=== PATIENT | female | born 1940 | race Caucasian/White ===

== ENCOUNTER 2017-02-07 12:18 | Inpatient (IN) ==
[2017-02-07] MEDS ORDERED: 0.9 % Sodium Chloride 1,000 ML IVC ONE (12:47)
[2017-02-07] MEDS ORDERED: Ipratropium/Albuterol Neb 3 ML IH ONE ×2 (12:47→14:37)
[2017-02-07 13:33] LABS: Basophils % 0.1 %; Eosinophils # 0.1 K/mcL (0.0-0.6); Hematocrit 33.9 % (35.3-44.9); Immature Granulocytes % 0.4 % (0-4); Lymphocytes # 0.5 K/mcL (0.6-4.6); Lymphocytes % 6.4 %; Mean Corpuscular HGB Conc 32.4 g/dL (31.6-35.5); Mean Corpuscular Hemoglobin 29.3 pg (28.0-33.3); Mean Corpuscular Volume 90.4 fL (83.0-100.0); Mean Platelet Volume 8.4 fL (9.4-12.4); Monocytes # 1.4 K/mcL (0.0-1.3); Monocytes % 20.1 %; Neutrophils # 5.1 K/mcL (1.6-8.9); Platelet Count 217 K/mcL (140-400); Red Blood Count 3.75 M/mcL (3.82-4.97); Red Cell Distribution Width 13.5 % (11.5-14.5)
--- NOTE | 2017-02-07 13:34 | Emergency Department Note ---
Disposition Clinical Impression: Community acquired pneumonia, Hypoxemia, Weakness Disposition: Admitted As Inpatient Condition: Fair Time of Disposition: 17:33 SOB HPI - General Chief Complaint: ED Shortness of Breath/Dyspnea Stated Complaint: ANNA Time Seen by Provider: 02/07/17 12:36 Source: patient Limitations: no limitations Nursing Notes Reviewed: Yes Vital Signs Reviewed: Yes - History of Present Illness Patient is a 76-year-old female who presents to [facility] ED with a chief complaint of difficulty breathing and weakness. States her symptoms have been ongoing over the last week and worse and last night. Her cough has been productive of white and sometimes yellow sputum. Denies any fevers but has had some chills at home. Past medical history significant for COPD for which she is on inhalers and nebulizer once a day, HTN, HLD, polymyalgia rheumatica on 10 mg daily of prednisone. Denies any chest pain or abdominal pain. No problems with urination or bowel movements. Daughter states when they went to check on her earlier today, her oxygen saturation on room air was 80%. He placed her on her when necessary O2 of 2 L and she went up to 90%. Pt Subjective Complaint: shortness of breath, cough Onset (ago): day(s) Context: recent illness Severity: moderate Consistency/Duration: gradually worsening Improves with: oxygen, rest Worsens with: lying flat, exertion Known history of: COPD Associated symptoms: Reports: cough, sputum production. Denies: chest pain, fever, nausea/vomiting, abdominal pain Treatment prior to arrival: oxygen Cough present: Yes Cough Description: Involuntary Cough Frequency: Intermittent Sputum production: Yes Sputum Amount: Moderate Sputum Color: White, Yellow - Related Data Home oxygen amount: 2 liters Home Medications Medication Instructions Recorded Confirmed Albuterol Sulfate [Proair Hfa] 2 puff IH Q4H PRN 07/05/16 02/07/17 Ascorbic Acid [Vitamin C] 500 mg PO DAILY 07/05/16 02/07/17 Aspirin Enteric Coated [Aspirin EC] 81 mg PO DAILY 07/05/16 02/07/17 Biotin 1 mg PO DAILY 07/05/16 02/07/17 Cetirizine HCl [Zyrtec] 10 mg PO DAILY 07/05/16 02/07/17 Citalopram Hydrobromide 10 mg PO DAILY 07/05/16 02/07/17 [Citalopram HBr] Cyanocobalamin (Vitamin B-12) 2,500 mcg PO DAILY 07/05/16 02/07/17 [Vitamin B12] Diclofenac Sodium [Voltaren] 1 appl TP QID 07/05/16 02/07/17 GuaiFENesin/Dextromethorphan 1 tab PO Q4H PRN 07/05/16 02/07/17 [Mucinex Dm] Ibuprofen [Motrin] 800 mg PO Q8HR PRN 07/05/16 02/07/17 Losartan Potassium [Cozaar] 50 mg PO DAILY 07/05/16 02/07/17 Multivitamin [Multi-Day Vitamins] 1 tab PO DAILY 07/05/16 02/07/17 Nortriptyline [Pamelor] 25 mg PO DAILY 07/05/16 02/07/17 Omeprazole [PriLOSEC] 40 mg PO DAILY 07/05/16 02/07/17 PredniSONE 5 mg PO DAILY 08/23/16 02/07/17 Ipratropium/Albuterol Neb [Duoneb] 3 ml IH QID PRN 02/07/17 02/07/17 Lactobacillus [Culturelle] 2 cap PO DAILY 02/07/17 02/07/17 Metoprolol Tartrate [Lopressor] 25 mg PO BID 02/07/17 02/07/17 Previous Rx's Medication Instructions Recorded Budesonide/Formoterol 160/4.5 2 puff IH BIDR #1 inhaler 07/07/16 [Symbicort 160/4.5] Benzonatate [Tessalon] 200 mg PO TID PRN #0 capsule 08/30/16 LORazepam [Ativan] 0.5 mg PO HS #30 tablet 08/30/16 Allergies Allergy/AdvReac Type Severity Reaction Status Date / Time Penicillins Allergy Severe Swelling Verified 07/05/16 17:36 of Lip/Tongue/Throat Tetanus Vaccines and Toxoid Allergy Confusion Verified 07/05/16 17:36 [Tetanus Vaccines & Toxoid] acetaminophen AdvReac Confusion Verified 07/05/16 17:36 [From Darvocet-N] propoxyphene [From Darvon] AdvReac Confusion Verified 07/05/16 17:36 All systems ED: reviewed and negative except as stated. Past Medical History - Past Medical History Attestation: Yes The following information was validated with the patient. Source: patient Medical history: Reports: asthma, COPD, hyperlipidemia, hypertension, other Surgical history: Reports: appendectomy, hip replacement, hysterectomy Psychiatric history: Reports: anxiety - Social History Smoking Status: Former smoker Smokeless Tobacco Status: No Alcohol use: Reports: none Drug use: Reports: none Physical Exam - General Limitations: no limitations General appearance: alert, in no apparent distress - Head Head exam: atraumatic, normocephalic, normal inspection - Eye Eye exam: Present: normal appearance, PERRL, EOMI - ENT ENT exam: normal exam, normal oropharynx, mucous membranes moist - Neck Neck exam: Present: normal inspection, full ROM, trachea midline - Chest Chest inspection: Present: normal inspection, symmetric chest wall rise - Respiratory Respiratory exam: Present: other (Crackles at the bases bilaterally) - Cardiovascular Cardiovascular exam: Present: normal rhythm, tachycardia - Abdominal Exam Abdominal exam: Present: soft, Non-Tender. Absent: tenderness, distention, guarding, rebound, rigidity - Extremities Exam Extremities exam: Present: normal inspection, full ROM. Absent: tenderness, pedal edema - Back Exam Back exam: Present: normal inspection, full ROM. Absent: tenderness - Neurological Exam Neurological exam: Present: alert, oriented X3 - Psychiatric Psychiatric exam: Present: normal affect, normal mood - Skin Skin exam: Present: warm, dry, intact, normal color Course Course Narrative: Patient seen and examined. Difficulty breathing and generalized weakness. Cardiopulmonary workup initiated. We will do a DuoNeb treatment - Reevaluation(s) Reevaluation #1: CT of the chest shows left lower lobe pneumonia. We will go ahead and order a dose of azithromycin and ceftriaxone. Due to patient's hypoxemia, generalized weakness, left lower lobe pneumonia, we will go ahead and admit. I spoke with hospitalist Sonia Singh who has accepted patient for admission. Time: 17:32 Vital Signs Temperature 99.2 F 02/07/17 12:20 Pulse Rate 104 02/07/17 12:20 Respiratory Rate 18 02/07/17 12:20 Blood Pressure 153/84 02/07/17 12:20 O2 Sat by Pulse Oximetry 92 L 02/07/17 12:20 Temperature 99.2 F 02/07/17 12:20 Pulse Rate 116 02/07/17 16:38 Respiratory Rate 20 02/07/17 17:34 Blood Pressure 166/93 02/07/17 17:34 O2 Sat by Pulse Oximetry 97 02/07/17 16:38 Oxygen Delivery Oxygen Delivery Nasal Cannula Shortness of Breath/Dyspnea - Medical Records Medical records reviewed: Yes I reviewed the patient's medical records. - Lab Data Lab results reviewed: Yes I reviewed the patient's lab results. Result diagrams: 02/07/17 13:20 02/07/17 13:20 Lab Results 02/07/17 02/07/17 02/07/17 Range/Units 13:20 13:20 13:20 WBC 7.1 (4.3-11.1) K/mcL RBC 3.75 L (3.82-4.97) M/mcL Hgb 11.0 L (11.5-15.4) g/dL Hct 33.9 L (35.3-44.9) % MCV 90.4 (83.0-100.0) fL MCH 29.3 (28.0-33.3) pg MCHC 32.4 (31.6-35.5) g/dL RDW 13.5 (11.5-14.5) % Plt Count 217 (140-400) K/mcL MPV 8.4 L (9.4-12.4) fL Immature Gran % 0.4 (0-4) % Seg Neutrophils % 72.0 % Lymphocytes % 6.4 % Monocytes % 20.1 % Eosinophils % 1.0 % Basophils % 0.1 % Neutrophils # 5.1 (1.6-8.9) K/mcL Lymphocytes # 0.5 L (0.6-4.6) K/mcL Monocytes # 1.4 H (0.0-1.3) K/mcL Eosinophils # 0.1 (0.0-0.6) K/mcL Basophils # 0.0 (0.0-0.2) K/mcL Platelet Estimate Normal (Normal) Sodium 138 (136-145) mEq/L Potassium 3.9 (3.5-4.5) mEq/L Chloride 99 (98-109) mEq/L Carbon Dioxide 32 H (19-29) mEq/L BUN 13 (7-20) mg/dL Creatinine 0.76 (0.57-1.11) mg/dL Est GFR ( Amer) > 60 (> 60) Est GFR (Non-Af Amer) > 60 (> 60) BUN/Creatinine Ratio 17 (6-26) Glucose 134 H (70-99) mg/dL Calculated Osmolality 288 (280-300) Lactic Acid 0.8 (0.5-2.2) mmol/L Calcium 9.2 (8.6-10.8) mg/dL Troponin I (0-0.03) ng/mL B-Natriuretic Peptide (0-100) pg/mL 02/07/17 02/07/17 Range/Units 13:20 13:20 WBC (4.3-11.1) K/mcL RBC (3.82-4.97) M/mcL Hgb (11.5-15.4) g/dL Hct (35.3-44.9) % MCV (83.0-100.0) fL MCH (28.0-33.3) pg MCHC (31.6-35.5) g/dL RDW (11.5-14.5) % Plt Count (140-400) K/mcL MPV (9.4-12.4) fL Immature Gran % (0-4) % Seg Neutrophils % % Lymphocytes % % Monocytes % % Eosinophils % % Basophils % % Neutrophils # (1.6-8.9) K/mcL Lymphocytes # (0.6-4.6) K/mcL Monocytes # (0.0-1.3) K/mcL Eosinophils # (0.0-0.6) K/mcL Basophils # (0.0-0.2) K/mcL Platelet Estimate (Normal) Sodium (136-145) mEq/L Potassium (3.5-4.5) mEq/L Chloride (98-109) mEq/L Carbon Dioxide (19-29) mEq/L BUN (7-20) mg/dL Creatinine (0.57-1.11) mg/dL Est GFR ( Amer) (> 60) Est GFR (Non-Af Amer) (> 60) BUN/Creatinine Ratio (6-26) Glucose (70-99) mg/dL Calculated Osmolality (280-300) Lactic Acid (0.5-2.2) mmol/L Calcium (8.6-10.8) mg/dL Troponin I 0.01 (0-0.03) ng/mL B-Natriuretic Peptide 182 H (0-100) pg/mL - Radiology Data Radiology results reviewed: Yes I reviewed the patient's radiology results. - EKG Data EKG attestation: Yes I reviewed and interpreted this EKG. EKG results narrative: EKG done at 1237 shows sinus tachycardia with a rate of [address] elevation or depression. Frequent PVCs noted. Attestation Statement - Attestation Attestation: Patient was seen with resident physician. I reviewed the history, physical, assessment and plan, and agree with the findings. I also personally evaluated this patient and had [id number] time with this patient. 68-year-old female presents to the emergency department with difficulty breathing. Been getting progressively worse for the last several days. She says she cannot just catch her breath. Patient's history of COPD and is on 2 L of home O2 but only as needed. She is not required. Her daughter who is a nurse noticed that her pulse ox on room air was about 80 which ultimately prompted her visit to the emergency department. On 2-1/2 L it was 95% but on 2 L of home O2 was only in the low 90s. Patient states she has not had any chest pain she thinks she has had some fevers but she just cannot seem to catch her breath. Denies nausea or vomiting. On exam ENT is unremarkable heart is regular rhythm and rate. Lungs no wheezing or obvious rhonchi. Abdomen soft and nontender extremities are unremarkable without swelling. Neurologically patient is intact. We will keep patient on home O2 provided breathing treatments and workup for pneumonia and other causes of hypoxia. Because of how much she desats and her not being on continuous home O2 is likely that we will admit the patient for hypoxia. We will also start her on IV antibiotics for pneumonia. CT scan of the chest was also obtained which did reveal pneumonia. Hospitalist service was notified for need for admission. Otherwise patient's been stable hemodynamically. Agree with resident physician assessment and plan.
[2017-02-07 13:50] LABS: BUN/Creatinine Ratio 17 (6-26); Blood Urea Nitrogen 13 mg/dL (7-20); Calcium 9.2 mg/dL (8.6-10.8); Carbon Dioxide 32 mEq/L (19-29); Chloride 99 mEq/L (98-109); Glucose 134 mg/dL (70-99); Osmolality,Calculated 288 (280-300); Potassium 3.9 mEq/L (3.5-4.5); Sodium 138 mEq/L (136-145); eGFR For African Americans > 60 (> 60); eGFR For Non-African Americans > 60 (> 60)
[2017-02-07 13:56] LABS: Platelet Estimate Normal (Normal)
[2017-02-07] MEDS ORDERED: Azithromycin 500 MG in D5% in Water 250 ML IVPB ONE (16:27)
[2017-02-07] MEDS ORDERED: *HR* LORazepam 0.5 MG TABLET PO ONE (16:37)
[2017-02-07] MEDS ORDERED: Ipratropium/Albuterol Neb 3 ML IH PRN (20:45)
[2017-02-07] MEDS ORDERED: Ibuprofen 400 MG TABLET PO PRN (20:49)
[2017-02-07] MEDS ORDERED: Ondansetron 4 MG/2 ML VIAL IVP PRN (20:49)
[2017-02-07] MEDS ORDERED: Naloxone 0.4 MG/ML INJ IVP PRN (20:49)
[2017-02-07] MEDS ORDERED: Albuterol 2.5 MG/3 ML NEBULIZER IH PRN (20:53)
[2017-02-07] MEDS: Budesonide/Formoterol 160/4.5 MDI IH SCH (21:56)
[2017-02-07] MEDS: *HR* LORazepam 0.5 MG TABLET PO SCH (22:35)
[2017-02-07] MEDS: Acetaminophen 325 MG TABLET PO PRN (22:35)
--- NOTE | 2017-02-07 23:13 | Internal Med History&Physical ---
Date of Encounter: 02/07/17 Time of Encounter: 20:45 Internal Medicine - H&P: HPI Chief complaint: Progressive shortness of breath, worsened overnight Admitted From: Emergency Dept Plans for Post Hospital Care: Home History of present illness: Ms. Squires is a 76 year old female with medical history significant for HTN, HLD , COPD/asthma, polymyalgia rheumatica (on prednisone 10 mg QD), presents with progressive SOB that worsened overnight, She reports a dry cough, SOB of breath at baseline and dyspnea on exertion, no chest pain, no abdominal pain, no hemoptysis, and weakness. No fever, or chills, no rhinorrhea, no sorethroat , no rash, urinary or neurological symptoms . No sick contcts, no recent travel. Her daughter reports that her pulse ox- 80% on 2L/oxygen by nasal, cannula. She is FULL CODE as per discussion. PMH: HTN, HLD, asthma/COPD, PMR on chronic predniosne therapy PSurgical history: she reports she does not recall. She had been medicated with an anxiolytic, making her sleepy. Psychiatry hx: unable to provide Family History: Father-heart disease, mother: michelle's Social history: non-smoker, no alcohol use, illicit drug use. Vital Signs Temperature 99.2 F 02/07/17 12:20 Pulse Rate 104 02/07/17 12:20 Respiratory Rate 18 02/07/17 12:20 Blood Pressure 153/84 02/07/17 12:20 O2 Sat by Pulse Oximetry 92 L 02/07/17 12:20 Temperature 99.2 F 02/07/17 12:20 Pulse Rate 116 02/07/17 16:38 Respiratory Rate 20 02/07/17 17:34 Blood Pressure 166/93 02/07/17 17:34 O2 Sat by Pulse Oximetry 97 02/07/17 16:38 In mild repiratort distress, lethargic, partly from recent adminsitration of anxiolytic Not pale, anicteric afebrile, acyanotic, Chest: Diminsihed with prolonged expiratory phase. Heart: Mild tachycardia, RR, HS1/2 no m/r/g. Abdomen: soft, non-tender, no masses. BS+. : No flank tenderness, no CVA TENDER, NO SUPRAPUBIC TENDERNESS. 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, no gross focal neurological deficits Skin: no active skin lesion Extremities: no pedal edema, no calf tenderness, normal pedal pulses Lab Results 02/07/17 02/07/17 02/07/17 Range/Units 13:20 13:20 13:20 WBC 7.1 (4.3-11.1) K/mcL RBC 3.75 L (3.82-4.97) M/mcL Hgb 11.0 L (11.5-15.4) g/dL Hct 33.9 L (35.3-44.9) % MCV 90.4 (83.0-100.0) fL MCH 29.3 (28.0-33.3) pg MCHC 32.4 (31.6-35.5) g/dL RDW 13.5 (11.5-14.5) % Plt Count 217 (140-400) K/mcL MPV 8.4 L (9.4-12.4) fL Immature Gran % 0.4 (0-4) % Seg Neutrophils % 72.0 % Lymphocytes % 6.4 % Monocytes % 20.1 % Eosinophils % 1.0 % Basophils % 0.1 % Neutrophils # 5.1 (1.6-8.9) K/mcL Lymphocytes # 0.5 L (0.6-4.6) K/mcL Monocytes # 1.4 H (0.0-1.3) K/mcL Eosinophils # 0.1 (0.0-0.6) K/mcL Basophils # 0.0 (0.0-0.2) K/mcL Platelet Estimate Normal (Normal) Sodium 138 (136-145) mEq/L Potassium 3.9 (3.5-4.5) mEq/L Chloride 99 (98-109) mEq/L Carbon Dioxide 32 H (19-29) mEq/L BUN 13 (7-20) mg/dL Creatinine 0.76 (0.57-1.11) mg/dL Est GFR ( Amer) > 60 (> 60) Est GFR (Non-Af Amer) > 60 (> 60) BUN/Creatinine Ratio 17 (6-26) Glucose 134 H (70-99) mg/dL Calculated Osmolality 288 (280-300) Lactic Acid 0.8 (0.5-2.2) mmol/L Calcium 9.2 (8.6-10.8) mg/dL Troponin I (0-0.03) ng/mL B-Natriuretic Peptide (0-100) pg/mL 02/07/17 02/07/17 Range/Units 13:20 13:20 WBC (4.3-11.1) K/mcL RBC (3.82-4.97) M/mcL Hgb (11.5-15.4) g/dL Hct (35.3-44.9) % MCV (83.0-100.0) fL MCH (28.0-33.3) pg MCHC (31.6-35.5) g/dL RDW (11.5-14.5) % Plt Count (140-400) K/mcL MPV (9.4-12.4) fL Immature Gran % (0-4) % Seg Neutrophils % % Lymphocytes % % Monocytes % % Eosinophils % % Basophils % % Neutrophils # (1.6-8.9) K/mcL Lymphocytes # (0.6-4.6) K/mcL Monocytes # (0.0-1.3) K/mcL Eosinophils # (0.0-0.6) K/mcL Basophils # (0.0-0.2) K/mcL Platelet Estimate (Normal) Sodium (136-145) mEq/L Potassium (3.5-4.5) mEq/L Chloride (98-109) mEq/L Carbon Dioxide (19-29) mEq/L BUN (7-20) mg/dL Creatinine (0.57-1.11) mg/dL Est GFR ( Amer) (> 60) Est GFR (Non-Af Amer) (> 60) BUN/Creatinine Ratio (6-26) Glucose (70-99) mg/dL Calculated Osmolality (280-300) Lactic Acid (0.5-2.2) mmol/L Calcium (8.6-10.8) mg/dL Troponin I 0.01 (0-0.03) ng/mL B-Natriuretic Peptide 182 H (0-100) pg/mL CXR: Bibasilar atelectasis, stable cardiac enlargement. CTA: no pulmonary embolus, bilateral atelectasis, no pneumonic focus. EKG: sinus tachycardia @[address] elevation or depression. Frequent PVCs noted. IMP COPD exacerbation Acute on chronic hypoxic respiratory failure. Sinus tachycardia related to COPD exacerbation Frequent PVCs on EKG, related to hypoxia/COPD exacerbation. Chronic morbidities HTN HLD COPD/ASTHMA Plolymyalgia rheumatic Axiety/depression PLAN Admit obtain ABG Oxygen supplementation pULSE OXIMETRY./ cardiac cath rn in view of frequent PVCs IV solumedrol and bronchodilator therapy Levaquin 500mg po QD Check serum magnesium stat, serum potasium =3.9 gi/dvt prophylaxis Continue other medications for chronic morbidities. I discussed my assessment with the patient, she verbalized understanding and is agreeable to admission. She is is determined to require hospitalization given the hypoxic respiratory failure. Past Med Surg Social Fam HX - Past Medical History Medical history: asthma, COPD, hyperlipidemia, hypertension, other Psychiatric history: anxiety - Past Surgical History Surgical History: appendectomy, hip replacement, hysterectomy - Social History Smoking Status: Former smoker Smokeless Tobacco Status: No Alcohol use: none Drug use: none - Family History Father History Unknown: Yes Family Member Ethnicity: Non- Living Status: Hx Family Cardiac Disorders: Yes Hx Family Respiratory Disorders: No Hx Family Cancer: No Hx Family GI Disorders: No Hx Family Endocrine Disorder: No Hx Family Neuromuscular Disorders: No Hx Family Neurologic Disorders: No Hx Family HEENT Disorders: No Hx Family Autoimmune Disorders: No Internal Medicine - H&P: Meds Albuterol Sulfate [Proair Hfa] 2 puff IH Q4H PRN 07/05/16 [History] Ascorbic Acid [Vitamin C] 500 mg PO DAILY 07/05/16 [History] Aspirin Enteric Coated [Aspirin EC] 81 mg PO DAILY 07/05/16 [History] Biotin 1 mg PO DAILY 07/05/16 [History] Cetirizine HCl [Zyrtec] 10 mg PO DAILY 07/05/16 [History] Citalopram Hydrobromide [Citalopram HBr] 10 mg PO DAILY 07/05/16 [History] Cyanocobalamin (Vitamin B-12) [Vitamin B12] 2,500 mcg PO DAILY 07/05/16 [History ] Diclofenac Sodium [Voltaren] 1 appl TP QID 07/05/16 [History] GuaiFENesin/Dextromethorphan [Mucinex Dm] 1 tab PO Q4H PRN 07/05/16 [History] Ibuprofen [Motrin] 800 mg PO Q8HR PRN 07/05/16 [History] Losartan Potassium [Cozaar] 50 mg PO DAILY 07/05/16 [History] Multivitamin [Multi-Day Vitamins] 1 tab PO DAILY 07/05/16 [History] Nortriptyline [Pamelor] 25 mg PO DAILY 07/05/16 [History] Omeprazole [PriLOSEC] 40 mg PO DAILY 07/05/16 [History] Budesonide/Formoterol 160/4.5 [Symbicort 160/4.5] 2 puff IH BIDR #1 inhaler 08/14 [Rx] PredniSONE 5 mg PO DAILY 08/23/16 [History] Benzonatate [Tessalon] 200 mg PO TID PRN #0 capsule 08/30/16 [Rx] LORazepam [Ativan] 0.5 mg PO HS #30 tablet 08/30/16 [Rx] Ipratropium/Albuterol Neb [Duoneb] 3 ml IH QID PRN 02/07/17 [History] Lactobacillus [Culturelle] 2 cap PO DAILY 02/07/17 [History] Metoprolol Tartrate [Lopressor] 25 mg PO BID 02/07/17 [History] Allergies Penicillins Allergy (Severe, Verified 07/05/16 17:36) Swelling of Lip/Tongue/Throat Tetanus Vaccines and Toxoid [Tetanus Vaccines & Toxoid] Allergy (Verified 17:36) Confusion acetaminophen [From Darvocet-N] Adverse Reaction (Verified 07/05/16 17:36) Confusion propoxyphene [From Darvon] Adverse Reaction (Verified 07/05/16 17:36) Confusion All Systems PM: A 10-system review of systems was performed and is negative for pertinent findings except as documented above in the HPI. - Constitutional Vitals: Temp Pulse Resp BP Pulse Ox 99.1 F 106 18 134/67 92 L 02/07/17 19:30 02/07/17 19:30 02/07/17 19:30 02/07/17 19:30 02/07/17 19:30 Internal Med - H&P Results - Labs CBC & Chem 7: 02/07/17 13:20 02/07/17 13:20
[2017-02-08 00:08] LABS: ABG HCO3 33.3 mEQ/L (21-27); ABG Oxygen Saturation 93 % (95-98); ABG PCO2 49 mmHg (35-45); ABG PH 7.44 pH Units (7.32-7.45); ABG PO2 64 mmHg (85-104); ABG TCO2 34.8 mEq/L (20-26); Blood Gas FiO2 34 %
[2017-02-08 00:11] LABS: Magnesium 1.4 mg/dL (1.6-2.6)
[2017-02-08] MEDS: MethylPREDNISolone 40 MG/ML VIAL IVP SCH ×4 (01:17→23:38)
[2017-02-08] MEDS ORDERED: *HR* Enoxaparin 30 MG/0.3 ML SYRINGE SQ SCH (06:00)
[2017-02-08] MEDS: Multivit/Ca/Min/Fe/FA 1 TAB TABLET PO SCH (09:31)
[2017-02-08] MEDS: Aspirin Enteric Coated 81 MG Tablet PO SCH (09:31)
[2017-02-08] MEDS: Lactobacillus 1 EACH CAP.SPRINK PO SCH (09:31)
[2017-02-08] MEDS: levoFLOXacin 500 MG TABLET PO SCH (09:32)
[2017-02-08] MEDS: Cyanocobalamin (B-12) 1,000 MCG TABLET PO SCH (09:32)
[2017-02-08] MEDS: Loratadine 10 MG TABLET PO SCH (09:32)
[2017-02-08] MEDS: BIOTIN 1 MG PO SCH (09:33)
[2017-02-08] MEDS ORDERED: Magnesium Sulfate 2 GM in D5% in Water 100 ML IVPB ONE (09:49)
--- NOTE | 2017-02-08 09:56 | Internal Med Progress Note ---
Date of Encounter: 02/08/17 Time of Encounter: 09:45 - Constitutional Vitals: Temp Pulse Resp BP Pulse Ox 97.5 F L 93 18 157/92 93 L 02/08/17 09:29 02/08/17 09:29 02/08/17 09:29 02/08/17 09:29 02/08/17 09:39 Internal Medicine: Result - Labs CBC & Chem 7: 02/07/17 13:20 02/07/17 13:20 - ABG Interpretation ABG results: ABG ABG pH 7.44 pH Units (7.32-7.45) 02/07/17 23:56 ABG pCO2 49 mmHg (35-45) H 02/07/17 23:56 ABG pO2 64 mmHg (85-104) L 02/07/17 23:56 ABG O2 Saturation 93 % (95-98) L 02/07/17 23:56 Consult Discharge Plan - Plan Referrals: Richie Galeas DO [Primary Care Provider] -
[2017-02-08] MEDS: Furosemide 20 MG/2 ML VIAL IVP SCH ×2 (10:25→20:10)
[2017-02-08] MEDS: Budesonide/Formoterol 160/4.5 MDI IH SCH ×2 (11:26→20:31)
[2017-02-08] MEDS: Acetaminophen 325 MG TABLET PO PRN (12:09)
--- NOTE | 2017-02-08 15:27 | Internal Med Progress Note ---
Date of Encounter: 02/08/17 Time of Encounter: 09:40 - Constitutional Vitals: Temp Pulse Resp BP Pulse Ox 97.7 F 94 18 143/80 92 L 02/08/17 11:47 02/08/17 11:47 02/08/17 11:47 02/08/17 11:47 02/08/17 11:47 Internal Medicine: Result - Labs CBC & Chem 7: 02/07/17 13:20 02/07/17 13:20 - ABG Interpretation ABG results: ABG ABG pH 7.44 pH Units (7.32-7.45) 02/07/17 23:56 ABG pCO2 49 mmHg (35-45) H 02/07/17 23:56 ABG pO2 64 mmHg (85-104) L 02/07/17 23:56 ABG O2 Saturation 93 % (95-98) L 02/07/17 23:56 Consult Discharge Plan - Plan Referrals: Richie Galeas DO [Primary Care Provider] -
--- NOTE | 2017-02-08 15:32 | Electrocardiograph Report ---
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
[2017-02-08] MEDS: *HR* LORazepam 0.5 MG TABLET PO SCH (20:10)
[2017-02-08] MEDS: Benzonatate 100 MG CAPSULE PO PRN (23:38)
[2017-02-09] MEDS: *HR* Enoxaparin 40 MG/0.4 ML SYRINGE SQ SCH (05:37)
[2017-02-09 07:11] LABS: BUN/Creatinine Ratio 22 (6-26); Blood Urea Nitrogen 17 mg/dL (7-20); Calcium 9.1 mg/dL (8.6-10.8); Carbon Dioxide 29 mEq/L (19-29); Chloride 96 mEq/L (98-109); Glucose 235 mg/dL (70-99); Osmolality,Calculated 291 (280-300); Sodium 136 mEq/L (136-145); eGFR For African Americans > 60 (> 60); eGFR For Non-African Americans > 60 (> 60)
[2017-02-09] MEDS: Budesonide/Formoterol 160/4.5 MDI IH SCH (07:52)
[2017-02-09] MEDS: Lactobacillus 1 EACH CAP.SPRINK PO SCH (08:38)
[2017-02-09] MEDS: Loratadine 10 MG TABLET PO SCH (08:38)
[2017-02-09] MEDS: Aspirin Enteric Coated 81 MG Tablet PO SCH (08:39)
[2017-02-09] MEDS: levoFLOXacin 500 MG TABLET PO SCH (08:39)
[2017-02-09] MEDS: Cyanocobalamin (B-12) 1,000 MCG TABLET PO SCH (08:39)
[2017-02-09] MEDS: Multivit/Ca/Min/Fe/FA 1 TAB TABLET PO SCH (08:39)
[2017-02-09] MEDS: Furosemide 20 MG/2 ML VIAL IVP SCH ×2 (08:42→20:21)
[2017-02-09] MEDS: MethylPREDNISolone 40 MG/ML VIAL IVP SCH ×3 (08:42→23:31)
[2017-02-09] MEDS ORDERED: D5% in Water 1,000 ML IV PRN (09:13)
[2017-02-09] MEDS ORDERED: *HR* Dextrose 50 % in Water (Syg) 50 ML SYRINGE IVP PRN (09:13)
[2017-02-09] MEDS ORDERED: Dextrose Gel 15 GM PO PRN ×2 (09:13)
[2017-02-09 09:31] LABS: Hemoglobin A1C 6.9 %
--- NOTE | 2017-02-09 10:18 | Internal Med Progress Note ---
<Chapin Medina - Last Filed: 02/09/17 18:25> Date of Encounter: 02/09/17 Time of Encounter: 10:18 - Assessment and plan (1) Acute exacerbation of chronic obstructive airways disease Current Visit: No Status: Acute Assessment and plan: Mrs. amor 68-year-old female with known history of COPD and asthma was admitted with increased shortness of breath worsens overnight. At home she uses 2 L oxygen at night. Her home oxygen saturation was 80% on 2 L nasal cannula. COPD criteria Plan: - Continue duo nebs, albuterol nebulizer. - Solu-Medrol 40 mg IV every 8 hours. - Levaquin 500 mg by mouth daily - Continue to wean oxygen requirements as tolerated. - Oxygen saturation 89 and 93%. (2) Hypomagnesemia Current Visit: No Status: Acute Assessment and plan: Magnesium level I.5 slightly elevated from 1.4 yesterday. Plan to give 2 g magnesium this evening with repeat mag level in a.m. (3) Polymyalgia rheumatica Current Visit: No Status: Acute Assessment and plan: Patient has a history of polymyalgia rheumatica for which she was taking 10 mg prednisone at home. Prednisone has been held as the patient is receiving Solu- Medrol 40 mg IV every 8 hours currently. Plan: - Continue to hold prednisone while on IV Solu-Medrol, will put patient back on prednisone 10 mg by mouth daily as she has been on chronic prednisone therapy to avoid adrenal insufficiency. (4) Hyperglycemia Current Visit: Yes Status: Acute Assessment and plan: Patient is a history of type 2 diabetes without home hyperglycemic coverage. She is demonstrating hyperglycemia during this inpatient stay likely contributory factor includes high-dose Solu-Medrol. Plan: - ACHS glucose checks - Low-dose sliding scale insulin. (5) DVT prophylaxis Current Visit: No Status: Acute Assessment and plan: DVT prophylaxis Lovenox 40 mg subcutaneous - Subjective Interval history: Mrs. amor 76-year-old female with significant past medical history of asthma, COPD, hypertension, hyperlipidemia and polymyalgia rheumatica is seen about a patient bedside this point. She feels that her breathing is improved but is not completely resolved and feels that she requires slightly longer for treatment. She has been coughing with clear to light yellow sputum production. She denies blood in her sputum or urine. She denies any chest pain, palpitations but does have some shortness of breath with her coughing. Denies any abdominal pain, nausea vomiting diarrhea or constipation. She does admit to some dependent edema in her lower extremities for which she elevates her feet. She has no other concerns or questions at this time. - Constitutional Vitals: Temp Pulse Resp BP Pulse Ox 97.6 F 87 18 136/84 93 L 02/09/17 07:38 02/09/17 07:38 02/09/17 07:52 02/09/17 07:38 02/09/17 07:52 General appearance: Present: A&O X 3, pleasant, no acute distress - Head Head exam: Present: atraumatic, normocephalic - Eye Eye exam: Present: PERRL, conjuntiva pink, sclera anicteric Pupils: Present: PERRL - Neck Neck exam general surgery: Present: supple, trachea midline. Absent: lymphadenopathy - Respiratory Respiratory exam: Present: rhonchi, wheezes Additional comments: Rhonchi appreciated in the right lung. - Cardiovascular Cardiovascular exam: Present: RRR, +S1, +S2. Absent: diastolic murmur, gallop, rubs, systolic murmur - GI/Abdominal GI/Abdominal exam: Present: normal bowel sounds, soft, no peritoneal signs. Absent: distended, tenderness - Extremities Exam Extremities exam: Present: pedal edema (Trace.), warm, radial pulses palpable and symetrical. Absent: calf tenderness, cyanotic - Neurological Exam Neurological exam: Present: CN II-XII intact, oriented X3, no focal deficits. Absent: pronater drift, facial droop, speech deficit - Psychiatric Psychiatric exam: Present: normal affect, normal mood Internal Medicine: Result - Labs CBC & Chem 7: 02/07/17 13:20 02/09/17 05:47 Labs: BMP 02/09/17 05:47 Sodium 136 Potassium 4.0 Chloride 96 L Carbon Dioxide 29 BUN 17 Creatinine 0.78 Glucose 235 H Calcium 9.1 - ABG Interpretation ABG results: ABG ABG pH 7.44 pH Units (7.32-7.45) 02/07/17 23:56 ABG pCO2 49 mmHg (35-45) H 02/07/17 23:56 ABG pO2 64 mmHg (85-104) L 02/07/17 23:56 ABG O2 Saturation 93 % (95-98) L 02/07/17 23:56 Consult Discharge Plan - Plan Referrals: Richie Galeas, [Primary Care Provider] - <Garret Schmidt - Last Filed: 02/09/17 18:56> - Assessment and plan (1) Acute exacerbation of chronic obstructive airways disease Current Visit: No Status: Acute (2) Acute and chronic respiratory failure with hypoxia Current Visit: Yes Status: Acute Assessment and plan: On higher levels of oxygen in daytime as well as night. (3) HTN (hypertension) Current Visit: No Status: Acute Qualifiers: Hypertension type: essential hypertension Qualified Code(s): I10 - Essential (primary) hypertension (4) Polymyalgia rheumatica Current Visit: No Status: Acute (5) Hypomagnesemia Current Visit: No Status: Acute (6) Steroid-induced hyperglycemia Current Visit: Yes Status: Acute Assessment and plan: Due to steroids. Coverage ordered. - Constitutional Vitals: Temp Pulse Resp BP Pulse Ox 97.4 F L 75 18 156/81 99 02/09/17 15:49 02/09/17 15:49 02/09/17 16:36 02/09/17 15:49 02/09/17 16:36 Internal Medicine: Result - Labs CBC & Chem 7: 02/07/17 13:20 02/09/17 05:47 Labs: BMP 02/09/17 05:47 Sodium 136 Potassium 4.0 Chloride 96 L Carbon Dioxide 29 BUN 17 Creatinine 0.78 Glucose 235 H Calcium 9.1 - ABG Interpretation ABG results: ABG ABG pH 7.44 pH Units (7.32-7.45) 02/07/17 23:56 ABG pCO2 49 mmHg (35-45) H 02/07/17 23:56 ABG pO2 64 mmHg (85-104) L 02/07/17 23:56 ABG O2 Saturation 93 % (95-98) L 02/07/17 23:56 - Attending Attestation I examined this patient and my medical decision-making was reviewed with the Resident Physician on 02/09/17. I agree with the documented findings, disposition and treatment plan as described except to the extent set forth below. Ms. Amor is currently admitted for acute exac COPD and acute on chronic hypoxic resp failure. She remains moderate to high risk due to potential for worsening respiratory status. Ms. Amor is slowly improving. She still is not baseline on her oxygen. She is still wheezing some at rest. No GI symptoms. Appetite OK. Exam Alert. Comfortable Heart reg Lungs with some wheeze I/P 1. Acute exac COPD 2. PMR 3. Acute on chronic hypoxic resp failure Further diagnoses and plan as above.
[2017-02-09] MEDS: BIOTIN 1 MG PO SCH (10:27)
[2017-02-09] MEDS: Insulin LISPRO 300 UNITS/3 ML VIAL SQ SCH ×2 (11:51→16:56)
[2017-02-09] MEDS: Ipratropium/Albuterol Neb 3 ML IH SCH ×2 (16:34→23:00)
[2017-02-09] MEDS: Benzonatate 100 MG CAPSULE PO PRN ×2 (16:59→23:29)
[2017-02-09] MEDS ORDERED: Magnesium Sulfate 2 GM in D5% in Water 100 ML IVPB ONE (18:30)
[2017-02-09] MEDS: *HR* LORazepam 0.5 MG TABLET PO SCH (20:21)
[2017-02-09] MEDS ORDERED: Insulin LISPRO 300 UNITS/3 ML VIAL SQ SCH (21:00)
[2017-02-10] MEDS: Ipratropium/Albuterol Neb 3 ML IH SCH ×4 (04:29→22:50)
[2017-02-10] MEDS: *HR* Enoxaparin 40 MG/0.4 ML SYRINGE SQ SCH (05:55)
[2017-02-10 06:50] LABS: Basophils % 0.1 %; Immature Granulocytes % 0.5 % (0-4); Immature Platelets 1.9 % (1.1-6.1); Lymphocytes # 0.3 K/mcL (0.6-4.6); Lymphocytes % 2.9 %; Mean Corpuscular HGB Conc 33.2 g/dL (31.6-35.5); Mean Corpuscular Hemoglobin 29.3 pg (28.0-33.3); Mean Corpuscular Volume 88.4 fL (83.0-100.0); Mean Platelet Volume 8.8 fL (9.4-12.4); Monocytes # 0.4 K/mcL (0.0-1.3); Monocytes % 4.1 %; Neutrophils # 9.9 K/mcL (1.6-8.9); Platelet Count 294 K/mcL (140-400); Red Cell Distribution Width 13.7 % (11.5-14.5); Segmented Neutrophils % 92.4 %
[2017-02-10 06:57] LABS: Hemoglobin 12.6 g/dL (11.5-15.4)
[2017-02-10 07:09] LABS: BUN/Creatinine Ratio 30 (6-26); Blood Urea Nitrogen 25 mg/dL (7-20); Calcium 8.7 mg/dL (8.6-10.8); Carbon Dioxide 29 mEq/L (19-29); Chloride 92 mEq/L (98-109); Glucose 244 mg/dL (70-99); Magnesium 1.8 mg/dL (1.6-2.6); Osmolality,Calculated 288 (280-300); Sodium 133 mEq/L (136-145); eGFR For African Americans > 60 (> 60); eGFR For Non-African Americans > 60 (> 60)
[2017-02-10] MEDS: levoFLOXacin 500 MG TABLET PO SCH (08:02)
[2017-02-10] MEDS: Multivit/Ca/Min/Fe/FA 1 TAB TABLET PO SCH (08:02)
[2017-02-10] MEDS: Cyanocobalamin (B-12) 1,000 MCG TABLET PO SCH (08:02)
[2017-02-10] MEDS: Lactobacillus 1 EACH CAP.SPRINK PO SCH (08:03)
[2017-02-10] MEDS: Loratadine 10 MG TABLET PO SCH (08:03)
[2017-02-10] MEDS: Aspirin Enteric Coated 81 MG Tablet PO SCH (08:03)
[2017-02-10] MEDS: MethylPREDNISolone 40 MG/ML VIAL IVP SCH (08:04)
[2017-02-10] MEDS: Furosemide 20 MG/2 ML VIAL IVP SCH (08:04)
[2017-02-10] MEDS: Insulin LISPRO 300 UNITS/3 ML VIAL SQ SCH ×3 (08:05→16:33)
[2017-02-10] MEDS: Benzonatate 100 MG CAPSULE PO PRN ×2 (08:58→23:39)
[2017-02-10] MEDS ORDERED: Insulin LISPRO 300 UNITS/3 ML VIAL SQ SCH (11:32)
--- NOTE | 2017-02-10 14:51 | Internal Med Progress Note ---
<Chapin Medina Grant - Last Filed: 02/10/17 14:49> Date of Encounter: 02/10/17 Time of Encounter: 14:49 - Assessment and plan (1) Acute exacerbation of chronic obstructive airways disease Current Visit: No Status: Acute Assessment and plan: Mrs. amor 76-year-old female with known history of COPD and asthma was admitted with increased shortness of breath worsens overnight. At home she uses 2 L oxygen at night. Her home oxygen saturation was 80% on 2 L nasal cannula. Plan: - Continue duo nebs, albuterol nebulizer. - Discontinue Solu-Medrol and start prednisone 40 mg daily. - Levaquin 500 mg by mouth daily - Maintain Oxygen saturation 89 and 93%. (2) Hypomagnesemia Current Visit: No Status: Acute Assessment and plan: Mag level improved to 1.9 after magnesium replacement. (3) Polymyalgia rheumatica Current Visit: No Status: Acute Assessment and plan: Patient has a history of polymyalgia rheumatica for which she was taking 10 mg prednisone at home. Prednisone has been held as the patient is receiving Solu- Medrol 40 mg IV every 8 hours currently. Plan: - Patient switched to oral prednisone 40 mg daily and will require prednisone taper tomorrow at time of discharge. (4) Hyperglycemia Current Visit: Yes Status: Acute Assessment and plan: Patient is a history of type 2 diabetes without home hyperglycemic coverage. She is demonstrating hyperglycemia during this inpatient stay likely contributory factor includes high-dose Solu-Medrol. Plan: - ACHS glucose checks - Increase sliding scale insulin to medium dose. (5) DVT prophylaxis Current Visit: No Status: Acute Assessment and plan: DVT prophylaxis Lovenox 40 mg subcutaneous - Subjective Interval history: Mrs. amor 76-year-old female has been seen and evaluated at patient bedside this morning. She is sitting up in her chair and said that she is feeling much improved. She denies any discolored sputum production but has had a cough with clear sputum production. She denies any nausea or vomiting diarrhea or constipation. She feels that she is able to take deeper breaths and is oxygenating better. She is still adamant that she did not require oxygen during the day even though her daughter said that she was supposed to be wearing her oxygen 24/. She said that she ambulated yesterday in the hallways and initially did not require oxygen when she walked up the hallway but did require oxygen to be able to walk back to her room. She is understanding that she may require home oxygen 21/06. - Constitutional Vitals: Temp Pulse Resp BP Pulse Ox 97.8 F 88 16 139/79 93 L 02/10/17 11:00 02/10/17 11:00 02/10/17 11:00 02/10/17 11:00 02/10/17 11:00 General appearance: Present: A&O X 3, pleasant, no acute distress - Head Head exam: Present: atraumatic, normocephalic - Eye Eye exam: Present: PERRL, conjuntiva pink, sclera anicteric Pupils: Present: PERRL - Neck Neck exam general surgery: Present: supple, trachea midline. Absent: lymphadenopathy - Respiratory Respiratory exam: Present: CTAB. Absent: accessory muscle use, rales, rhonchi, wheezes - Cardiovascular Cardiovascular exam: Present: RRR, +S1, +S2. Absent: diastolic murmur, gallop, rubs, systolic murmur - GI/Abdominal GI/Abdominal exam: Present: normal bowel sounds, soft, no peritoneal signs. Absent: distended, tenderness - Extremities Exam Extremities exam: Present: warm, radial pulses palpable and symetrical. Absent : calf tenderness, cyanotic, pedal edema - Neurological Exam Neurological exam: Present: alert, oriented X3, no focal deficits. Absent: pronater drift, facial droop, speech deficit - Psychiatric Psychiatric exam: Present: normal affect, normal mood Internal Medicine: Result - Labs CBC & Chem 7: 02/10/17 06:06 02/10/17 06:06 Labs: Short CBC 02/10/17 Range/Units 06:06 WBC 10.7 D (4.3-11.1) K/mcL Hgb 12.6 D (11.5-15.4) g/dL Hct 38.0 (35.3-44.9) % Plt Count 294 (140-400) K/mcL Neutrophils # 9.9 H (1.6-8.9) K/mcL BMP 02/10/17 06:06 Sodium 133 L Potassium 4.0 Chloride 92 L Carbon Dioxide 29 BUN 25 H Creatinine 0.83 Glucose 244 H Calcium 8.7 - ABG Interpretation ABG results: ABG ABG pH 7.44 pH Units (7.32-7.45) 02/07/17 23:56 ABG pCO2 49 mmHg (35-45) H 02/07/17 23:56 ABG pO2 64 mmHg (85-104) L 02/07/17 23:56 ABG O2 Saturation 93 % (95-98) L 02/07/17 23:56 Consult Discharge Plan - Plan Referrals: Richie Galeas, [Primary Care Provider] - <Garret Schmidt - Last Filed: 02/10/17 17:33> - Assessment and plan (1) Acute and chronic respiratory failure with hypoxia Current Visit: Yes Status: Acute (2) Acute exacerbation of chronic obstructive airways disease Current Visit: Yes Status: Acute (3) HTN (hypertension) Current Visit: No Status: Acute Qualifiers: Hypertension type: essential hypertension Qualified Code(s): I10 - Essential (primary) hypertension (4) Polymyalgia rheumatica Current Visit: No Status: Acute (5) Hypomagnesemia Current Visit: No Status: Acute (6) Steroid-induced hyperglycemia Current Visit: Yes Status: Acute - Constitutional Vitals: Temp Pulse Resp BP Pulse Ox 98.1 F 98 16 148/74 94 L 02/10/17 15:00 02/10/17 15:00 02/10/17 15:55 02/10/17 15:00 02/10/17 15:55 Internal Medicine: Result - Labs CBC & Chem 7: 02/10/17 06:06 02/10/17 06:06 Labs: Short CBC 02/10/17 Range/Units 06:06 WBC 10.7 D (4.3-11.1) K/mcL Hgb 12.6 D (11.5-15.4) g/dL Hct 38.0 (35.3-44.9) % Plt Count 294 (140-400) K/mcL Neutrophils # 9.9 H (1.6-8.9) K/mcL BMP 02/10/17 06:06 Sodium 133 L Potassium 4.0 Chloride 92 L Carbon Dioxide 29 BUN 25 H Creatinine 0.83 Glucose 244 H Calcium 8.7 - ABG Interpretation ABG results: ABG ABG pH 7.44 pH Units (7.32-7.45) 02/07/17 23:56 ABG pCO2 49 mmHg (35-45) H 02/07/17 23:56 ABG pO2 64 mmHg (85-104) L 02/07/17 23:56 ABG O2 Saturation 93 % (95-98) L 02/07/17 23:56 - Attending Attestation I examined this patient and my medical decision-making was reviewed with the Resident Physician on 02/10/17. I agree with the documented findings, disposition and treatment plan as described except to the extent set forth below. Ms. Amor is currently admitted for acute exacerbation COPD and acute on chronic hypoxic resp failure. She remains moderate to high risk due to potential for worsening respiratory status. Ms. Amor is doing a little better today. She is less wheezy. She has been up and about some. No GI symptoms or CP. She is still on 3.5 L oxygen. She previously was to be on continuous oxygen but insists it was just at bedtime. Exam Alert. Comfortable in chair. Heart reg Lungs clearer today. No edema I/P 1. Acute on chronic hypoxic resp failure 2. Acute exac COPD Further diagnoses and plan as above.
[2017-02-10] MEDS ORDERED: 0.9 % Sodium Chloride 500 ML IVC ONE (17:39)
[2017-02-10] MEDS ORDERED: Magnesium Sulfate 1 GM in D5% in Water 100 ML IV ONE (17:45)
[2017-02-10] MEDS: *HR* LORazepam 0.5 MG TABLET PO SCH (20:43)
[2017-02-11] MEDS: Ipratropium/Albuterol Neb 3 ML IH SCH ×2 (04:25→10:35)
[2017-02-11] MEDS: *HR* Enoxaparin 40 MG/0.4 ML SYRINGE SQ SCH (05:36)
[2017-02-11 06:58] LABS: Basophils % 0.1 %; Hematocrit 37.1 % (35.3-44.9); Hemoglobin 12.2 g/dL (11.5-15.4); Immature Granulocytes % 0.4 % (0-4); Lymphocytes # 0.9 K/mcL (0.6-4.6); Lymphocytes % 8.6 %; Mean Corpuscular HGB Conc 32.9 g/dL (31.6-35.5); Mean Corpuscular Volume 91.4 fL (83.0-100.0); Mean Platelet Volume 8.7 fL (9.4-12.4); Monocytes # 1.1 K/mcL (0.0-1.3); Monocytes % 10.2 %; Neutrophils # 8.6 K/mcL (1.6-8.9); Platelet Count 238 K/mcL (140-400); Red Blood Count 4.06 M/mcL (3.82-4.97); Red Cell Distribution Width 13.7 % (11.5-14.5); Segmented Neutrophils % 80.7 %
[2017-02-11 07:17] LABS: Alanine Aminotransferase 17 Units/L (0-55); Albumin 3.2 g/dL (3.5-5.0); Albumin/Globulin Ratio 0.9 (1.1-2.2); Alkaline Phosphatase 45 Units/L (38-126); Aspartate Amino Transferase 27 Units/L (5-34); BUN/Creatinine Ratio 26 (6-26); Bilirubin,Total 0.3 mg/dL (0.2-1.2); Blood Urea Nitrogen 21 mg/dL (7-20); Calcium 8.6 mg/dL (8.6-10.8); Carbon Dioxide 31 mEq/L (19-29); Chloride 94 mEq/L (98-109); Globulin 3.7 g/dL (2.4-3.5); Glucose 100 mg/dL (70-99); Osmolality,Calculated 281 (280-300); Potassium 3.7 mEq/L (3.5-4.5); Sodium 134 mEq/L (136-145); Total Protein 6.9 g/dL (6.0-8.3); eGFR For African Americans > 60 (> 60); eGFR For Non-African Americans > 60 (> 60)
[2017-02-11 07:36] VITALS: BP 145/84
[2017-02-11] MEDS: Lactobacillus 1 EACH CAP.SPRINK PO SCH (08:03)
[2017-02-11] MEDS: Multivit/Ca/Min/Fe/FA 1 TAB TABLET PO SCH (08:03)
[2017-02-11] MEDS: Aspirin Enteric Coated 81 MG Tablet PO SCH (08:03)
[2017-02-11] MEDS: Cyanocobalamin (B-12) 1,000 MCG TABLET PO SCH (08:04)
[2017-02-11] MEDS: levoFLOXacin 500 MG TABLET PO SCH (08:04)
[2017-02-11] MEDS: Loratadine 10 MG TABLET PO SCH (08:04)
[2017-02-11] MEDS: Insulin LISPRO 300 UNITS/3 ML VIAL SQ SCH ×2 (08:05→11:37)
--- NOTE | 2017-02-11 08:56 | Discharge Summary ---
<Chapin Medina - Last Filed: 02/12/17 17:10> Date of Encounter: 02/11/17 Time of Encounter: 08:48 - Discharge Diagnosis (1) Acute exacerbation of chronic obstructive airways disease Priority: Primary Status: Acute (2) Hypomagnesemia Priority: Secondary Status: Acute (3) Polymyalgia rheumatica Priority: Secondary Status: Acute (4) Hyperglycemia Priority: Secondary Status: Acute (5) DVT prophylaxis Priority: Secondary Status: Acute - Discharge Medications Prescriptions: Levofloxacin [Levaquin] 500 mg PO DAILY #2 tablet PredniSONE 20 mg PO DAILY #6 tablet Home Medications: Albuterol Sulfate [Proair Hfa] 2 puff IH Q4H PRN 07/05/16 [History] Ascorbic Acid [Vitamin C] 500 mg PO DAILY 07/05/16 [History] Aspirin Enteric Coated [Aspirin EC] 81 mg PO DAILY 07/05/16 [History] Biotin 1 mg PO DAILY 07/05/16 [History] Cetirizine HCl [Zyrtec] 10 mg PO DAILY 07/05/16 [History] Citalopram Hydrobromide [Citalopram HBr] 10 mg PO DAILY 07/05/16 [History] Cyanocobalamin (Vitamin B-12) [Vitamin B12] 2,500 mcg PO DAILY 07/05/16 [History ] Diclofenac Sodium [Voltaren] 1 appl TP QID 07/05/16 [History] GuaiFENesin/Dextromethorphan [Mucinex Dm] 1 tab PO Q4H PRN 07/05/16 [History] Ibuprofen [Motrin] 800 mg PO Q8HR PRN 07/05/16 [History] Losartan Potassium [Cozaar] 50 mg PO DAILY 07/05/16 [History] Multivitamin [Multi-Day Vitamins] 1 tab PO DAILY 07/05/16 [History] Nortriptyline [Pamelor] 25 mg PO DAILY 07/05/16 [History] Omeprazole [PriLOSEC] 40 mg PO DAILY 07/05/16 [History] Budesonide/Formoterol 160/4.5 [Symbicort 160/4.5] 2 puff IH BIDR #1 inhaler 08/14 [Rx] Benzonatate [Tessalon] 200 mg PO TID PRN #0 capsule 08/30/16 [Rx] LORazepam [Ativan] 0.5 mg PO HS #30 tablet 08/30/16 [Rx] Ipratropium/Albuterol Neb [Duoneb] 3 ml IH QID PRN 02/07/17 [History] Lactobacillus [Culturelle] 2 cap PO DAILY 02/07/17 [History] Metoprolol Tartrate [Lopressor] 25 mg PO BID 02/07/17 [History] Levofloxacin [Levaquin] 500 mg PO DAILY #2 tablet 02/11/17 [Rx] PredniSONE 5 mg PO DAILY #0 02/11/17 [Rx] PredniSONE 20 mg PO DAILY #6 tablet 02/11/17 [Rx] Allergies/Adverse Reactions: Allergies Penicillins Allergy (Severe, Verified 07/05/16 17:36) Swelling of Lip/Tongue/Throat Tetanus Vaccines and Toxoid [Tetanus Vaccines & Toxoid] Allergy (Verified 17:36) Confusion acetaminophen [From Darvocet-N] Adverse Reaction (Verified 07/05/16 17:36) Confusion propoxyphene [From Darvon] Adverse Reaction (Verified 07/05/16 17:36) Confusion Date of admission: 02/07/17 20:49 Primary care physician: Richie Galeas Discharging clinician: Chapin Medina Anticipated date of discharge: 02/11/17 - Patient Status Disposition: Home, Self-Care Condition: Fair Functional capacity at discharge: independent ambulation Overall status at discharge: patient is progressing back to baseline - Discharge Instructions Instructions: Chronic Hypertension (DC), Pneumonia (DC) Follow Up With: Richie Galeas DO [Primary Care Provider] - 02/16/17 10:15 am Additional Instructions: Recommend follow-up with her primary care physician X3 to 5 days. Completing antibiotics as prescribed. Complete prednisone taper and then resume home prednisone dose 5 mg by mouth daily until follow-up with your primary care physician for further instructions. Hemoglobin A1c of 6.9, patient elevated glucose levels while on high-dose prednisone during hospitalization. Patient may benefit from low-dose metformin with pre-diabetic labs, I will leave this to the discretion of patient's PCP. - Diet and Activity Activity: increase activity as tolerated Diet: diabetic diet Interval History: Ms. Squires is a 76 year old female with medical history significant for HTN, HLD , COPD/asthma, polymyalgia rheumatica (on prednisone 10 mg QD), presented with progressive SOB was admitted with COPD exacerbation with hypoxia, increased sputum production green yellow in color. Date of admission 02/07/2017. She was started on IV Solu-Medrol, bronchodilator therapy, Levaquin 500 mg by mouth daily. Midrin to the general medical floor and therapy was continued. Labs were collected throughout her inpatient stay demonstrated low magnesium which was replaced and corrected. With IV Solu-Medrol she did have hyperglycemia which was adjusted after switching to by mouth prednisone. Throughout her inpatient stay her vitals remained stable and her oxygen demands improved to her baseline 3 L nasal cannula oxygen. She clinically improved up until her discharge on 02/11/2017. 02/11/2017 she was a seen and evaluated outpatient bedside and deemed stable for discharge home with follow-up with her primary care physician. Discharge prescriptions are provided to discharge. Hospital course: Ms. Squires is a 76 year old female - Time Spent with Patient Total time spent providing and/or coordinating discharge services: - Constitutional Vitals: Temp Pulse Resp BP Pulse Ox 97.6 F 80 18 145/84 98 02/11/17 07:34 02/11/17 07:34 02/11/17 07:34 02/11/17 07:34 02/11/17 07:34 General appearance: Present: A&O X 3, pleasant, no acute distress - Head Head exam: Present: atraumatic, normocephalic - Eye Eye exam: Present: PERRL, conjuntiva pink, sclera anicteric Pupils: Present: PERRL - Neck Neck exam general surgery: Present: normal inspection, supple, trachea midline - Respiratory Respiratory exam: Present: CTAB. Absent: accessory muscle use, rales, rhonchi, wheezes - Cardiovascular Cardiovascular exam: Present: RRR, +S1, +S2. Absent: diastolic murmur, gallop, rubs, systolic murmur - GI/Abdominal GI/Abdominal exam: Present: normal bowel sounds, soft, no peritoneal signs. Absent: distended, tenderness - Extremities Exam Extremities exam: Present: warm, radial pulses palpable and symetrical. Absent : calf tenderness, cyanotic, pedal edema - Neurological Exam Neurological exam: Present: alert, oriented X3, no focal deficits. Absent: pronater drift, facial droop, speech deficit - Skin Skin exam: Present: dry, intact <Garret Schmidt - Last Filed: 02/14/17 16:03> - Discharge Diagnosis (1) Acute and chronic respiratory failure with hypoxia Status: Acute (2) Acute exacerbation of chronic obstructive airways disease Status: Acute (3) HTN (hypertension) Status: Acute Qualifiers: Hypertension type: essential hypertension Qualified Code(s): I10 - Essential (primary) hypertension (4) Polymyalgia rheumatica Status: Acute (5) Hypomagnesemia Status: Acute (6) Steroid-induced hyperglycemia Status: Acute Date of admission: 02/07/17 20:49 Primary care physician: Richie Galeas [facility] course: Ms. Squires is a 76 year old female - Time Spent with Patient Total time spent providing and/or coordinating discharge services: 38min - Constitutional Vitals: Temp Pulse Resp BP Pulse Ox 97.6 F 80 16 145/84 93 L 02/11/17 07:34 02/11/17 07:34 02/11/17 10:35 02/11/17 07:34 02/11/17 10:35 - Attending Attestation I examined this patient and my medical decision-making was reviewed with the Resident Physician on 02/11/17. I agree with the documented findings, disposition and treatment plan as described except to the extent set forth below. Ms. Squires is feeling OK today. She has no new issues. She feels ready to go home. She is afebrile with stable vitals. Exam Alert Comfortable Heart reg Decreased breath sounds Plan D/C home Follow up with primary provider.
[2017-02-11] MEDS ORDERED: predniSONE 20 MG TABLET PO SCH (09:00)
--- NOTE | 2017-02-11 13:20 | Physician Discharge Referral ---
Home Health/Hosp Referral Info Transfer to: Home Health Provider in Charge Post Discharge: PCP - Diagnosis (1) Acute exacerbation of chronic obstructive airways disease Status: Acute (2) Hypomagnesemia Status: Acute (3) Polymyalgia rheumatica Status: Acute (4) Hyperglycemia Status: Acute (5) DVT prophylaxis Status: Acute - Respiratory Orders Smoking Cessation: Smoking cessation has been advised. For more information, call the [place] Tobacco Quit Line at 5-471-PKQK-NOW. - Diet/Nutrition Diet/Nutrition Orders: Regular - Activity Activity Orders: Ambulate - Services Needed Following services are medically necessary services: Home Health Aide, Physical Therapy, Occupational Therapy - Transfer Medications Prescriptions: Levofloxacin [Levaquin] 500 mg PO DAILY #2 tablet PredniSONE 20 mg PO DAILY #6 tablet Home Medications: Albuterol Sulfate [Proair Hfa] 2 puff IH Q4H PRN 07/05/16 [History] Ascorbic Acid [Vitamin C] 500 mg PO DAILY 07/05/16 [History] Aspirin Enteric Coated [Aspirin EC] 81 mg PO DAILY 07/05/16 [History] Biotin 1 mg PO DAILY 07/05/16 [History] Cetirizine HCl [Zyrtec] 10 mg PO DAILY 07/05/16 [History] Citalopram Hydrobromide [Citalopram HBr] 10 mg PO DAILY 07/05/16 [History] Cyanocobalamin (Vitamin B-12) [Vitamin B12] 2,500 mcg PO DAILY 07/05/16 [History ] Diclofenac Sodium [Voltaren] 1 appl TP QID 07/05/16 [History] GuaiFENesin/Dextromethorphan [Mucinex Dm] 1 tab PO Q4H PRN 07/05/16 [History] Ibuprofen [Motrin] 800 mg PO Q8HR PRN 07/05/16 [History] Losartan Potassium [Cozaar] 50 mg PO DAILY 07/05/16 [History] Multivitamin [Multi-Day Vitamins] 1 tab PO DAILY 07/05/16 [History] Nortriptyline [Pamelor] 25 mg PO DAILY 07/05/16 [History] Omeprazole [PriLOSEC] 40 mg PO DAILY 07/05/16 [History] Budesonide/Formoterol 160/4.5 [Symbicort 160/4.5] 2 puff IH BIDR #1 inhaler 08/14 [Rx] Benzonatate [Tessalon] 200 mg PO TID PRN #0 capsule 08/30/16 [Rx] LORazepam [Ativan] 0.5 mg PO HS #30 tablet 08/30/16 [Rx] Ipratropium/Albuterol Neb [Duoneb] 3 ml IH QID PRN 02/07/17 [History] Lactobacillus [Culturelle] 2 cap PO DAILY 02/07/17 [History] Metoprolol Tartrate [Lopressor] 25 mg PO BID 02/07/17 [History] Levofloxacin [Levaquin] 500 mg PO DAILY #2 tablet 02/11/17 [Rx] PredniSONE 5 mg PO DAILY #0 02/11/17 [Rx] PredniSONE 20 mg PO DAILY #6 tablet 02/11/17 [Rx] Allergies/Adverse Reactions: Allergies Penicillins Allergy (Severe, Verified 07/05/16 17:36) Swelling of Lip/Tongue/Throat Tetanus Vaccines and Toxoid [Tetanus Vaccines & Toxoid] Allergy (Verified 17:36) Confusion acetaminophen [From Darvocet-N] Adverse Reaction (Verified 07/05/16 17:36) Confusion propoxyphene [From Darvon] Adverse Reaction (Verified 07/05/16 17:36) Confusion Certification: Further, I certify that my clinical findings support that this patient is homebound (i.e. absences from home require considerable and taxing effort and are for medical reasons or tenriism services or infrequently or short duration when for other reasons) because: Homebound Reason: Leaving home requires considerable and taxing effort due to condition, Severity of cardiac or pulmonary status limits activity tolerance Attestation: My signature below is to certify that this patient is under my care and that I, or nurse practitioner, or a physician's mechanic assistant working with me, has a face-to -face encounter with this patient.
== END 2017-02-11 14:10 | disposition home or self-care (01) | DRG 190 ==
LOC: 2ANU 12:18 → EMEROO 12:18 → 2ANU 17:37 → SUATTDRO 20:49
PROVIDERS: ADMIT Internal Medicine; ATTEND Internal Medicine

== ENCOUNTER 2017-06-22 15:12 | Inpatient (IN) ==
[2017-06-22] MEDS ORDERED: *HR* HYDROmorphone (PF) 1 MG/ML SYRINGE IVP PRN (23:50)
[2017-06-22] MEDS ORDERED: Ondansetron 4 MG/2 ML VIAL IVP PRN (23:51)
[2017-06-23] MEDS: 0.9 % Sodium Chloride 1,000 ML IVC SCH ×3 (00:37→21:58)
[2017-06-23] MEDS: MetroNIDAZOLE 500 MG/100 ML 500 MG/100 ML BAG IVPB SCH ×3 (00:38→15:09)
[2017-06-23] MEDS ORDERED: *HR* Heparin 5,000 UNIT/ML VIAL IVP PRN ×4 (01:05→03:46)
[2017-06-23] MEDS ORDERED: Heparin 25,000 UNIT/500 ML D5W 25,000 UNIT/500 ML MLS IVC SCH (01:15)
--- NOTE | 2017-06-23 01:17 | Internal Medicine Consult Note ---
Date of Encounter: 06/23/17 Time of Encounter: 01:13 - Assessment and Plan (1) Gallstone pancreatitis Current Visit: Yes Status: Acute Assessment and plan: Conservative management Continue IVF, antibiotics, bowel rest, trend lytes. Surgery assisting. Likely interval surgery ? Continuous eval (2) Afib Current Visit: Yes Status: Acute Assessment and plan: Likely preciptated by gallstone pancreatitis. Bolus IV dilt once, Start dilt gtt , low dose heparin gtt, check electrolytes and keep K>4, Mg>2, treat underlying condition. Check CXR Qualifiers: Qualified Code(s): I48.91 - Unspecified atrial fibrillation (3) HTN (hypertension) Current Visit: No Status: Acute Assessment and plan: watch BP on dilt gtt Qualifiers: Hypertension type: essential hypertension Qualified Code(s): I10 - Essential (primary) hypertension (4) COPD not affecting current episode of care Current Visit: Yes Status: Acute Assessment and plan: stable, uses baseline 3 L NC. Monitor for now. Duonebs as needed (5) COPD (chronic obstructive pulmonary disease) Current Visit: Yes Status: Acute Qualifiers: Qualified Code(s): J44.9 - Chronic obstructive pulmonary disease, unspecified Internal Medicine - CN: HPI - Data of Consult Requesting Physician: Oliverio Jenkins DO - Consult Narrative Reason for consult: AFib Medical Management History of present illness: Ms. Squires is a 76 year old female who presents for conservative management of gallstone pancreatitis who presents developed AFib RVR while inpatient. She has been seen by surgery with plans for trial of bowel rest, IV antibiotics, IVF for management of acute pancreatitis. However, hospital course was c/b AFib RVR. EKG reviewed by self noted rate 147, irregular. There are some ST-T changes noted. She feels fatigue but denies palpitation. Some chest discomfort associated with tachyarrthymia. On review, she denies a cardiac hx and reports using 3 L NC at baseline Past Med Surg Social Fam HX - Past Medical History Medical history: asthma, COPD, hyperlipidemia, hypertension, other Psychiatric history: anxiety - Past Surgical History Surgical History: appendectomy, hip replacement, hysterectomy - Social History Smoking Status: Former smoker Smokeless Tobacco Status: No Alcohol use: none Drug use: none - Family History Father Family Member Ethnicity: Non- Living Status: Hx Family Cardiac Disorders: Yes Hx Family Respiratory Disorders: No Hx Family Cancer: No Hx Family GI Disorders: No Hx Family Endocrine Disorder: No Hx Family Neuromuscular Disorders: No Hx Family Neurologic Disorders: No Hx Family HEENT Disorders: No Hx Family Autoimmune Disorders: No Review of systems: ROS 14 point review of systems reviewed. Pertinent positive or negative as per HPI or otherwise reviewed as negative Internal Medicine - CN: Meds Albuterol Sulfate [Proair Hfa] 2 puff IH Q4H PRN 07/05/16 [History] Ascorbic Acid [Vitamin C] 500 mg PO DAILY 07/05/16 [History] Aspirin Enteric Coated [Aspirin EC] 81 mg PO DAILY 07/05/16 [History] Biotin 1 mg PO DAILY 07/05/16 [History] Cetirizine HCl [Zyrtec] 10 mg PO DAILY 07/05/16 [History] Citalopram Hydrobromide [Citalopram HBr] 10 mg PO DAILY 07/05/16 [History] Cyanocobalamin (Vitamin B-12) [Vitamin B12] 2,500 mcg PO DAILY 07/05/16 [History ] Diclofenac Sodium [Voltaren] 1 appl TP QID 07/05/16 [History] GuaiFENesin/Dextromethorphan [Mucinex Dm] 1 tab PO Q4H PRN 07/05/16 [History] Ibuprofen [Motrin] 800 mg PO Q8HR PRN 07/05/16 [History] Losartan Potassium [Cozaar] 50 mg PO DAILY 07/05/16 [History] Multivitamin [Multi-Day Vitamins] 1 tab PO DAILY 07/05/16 [History] Nortriptyline [Pamelor] 25 mg PO DAILY 07/05/16 [History] Omeprazole [PriLOSEC] 40 mg PO DAILY 07/05/16 [History] Budesonide/Formoterol 160/4.5 [Symbicort 160/4.5] 2 puff IH BIDR #1 inhaler 08/14 [Rx] Benzonatate [Tessalon] 200 mg PO TID PRN #0 capsule 08/30/16 [Rx] LORazepam [Ativan] 0.5 mg PO HS #30 tablet 08/30/16 [Rx] Ipratropium/Albuterol Neb [Duoneb] 3 ml IH QID PRN 02/07/17 [History] Lactobacillus [Culturelle] 2 cap PO DAILY 02/07/17 [History] Metoprolol Tartrate [Lopressor] 25 mg PO BID 02/07/17 [History] levoFLOXacin [Levaquin] 500 mg PO DAILY #2 tablet 02/11/17 [Rx] predniSONE [PredniSONE] 5 mg PO DAILY #0 02/11/17 [Rx] predniSONE [PredniSONE] 20 mg PO DAILY #6 tablet 02/11/17 [Rx] Allergies Penicillins Allergy (Severe, Verified 07/05/16 17:36) Swelling of Lip/Tongue/Throat Tetanus Vaccines and Toxoid [Tetanus Vaccines & Toxoid] Allergy (Verified 17:36) Confusion acetaminophen [From Darvocet-N] Adverse Reaction (Verified 07/05/16 17:36) Confusion propoxyphene [From Darvon] Adverse Reaction (Verified 07/05/16 17:36) Confusion Internal Medicine - CN: Exam - Constitutional Vitals: Temp Pulse Resp BP Pulse Ox 97.5 F L 80 18 95/54 93 06/22/17 23:23 06/22/17 23:23 06/22/17 23:23 06/22/17 23:23 06/22/17 23:23 Exam: General - AAO x 3 Psych - Appropriate affect/speech. No agitation Eyes - KATLIN. Eye lids intact. No scleral icterus Lymphatics - No cervical/inguinal lympadenopathy Neuro - No gross peripheral or central neuro deficits with intact CN 2-12 exam Heart - Tachycardia, irregular. S1 and S2 present. No added HS/murmurs appreciated. No elevated JVD appreciated. No calf swellings/erythema Lung - Adequate air entry b/l, No crackes/wheezes appreciated GI - epigastric tenderness. No guarding/rigidity. No hepatosplenomegaly/ ascities. BS+ - No CVA/suprapubic tenderness or palpable bladder distension Skin - Intact. No rash/petechiae/ecchymosis. Warm extremities Consult Discharge Plan - Plan Referrals: Richie Galeas DO [Primary Care Provider] -
[2017-06-23] MEDS ORDERED: Ipratropium/Albuterol Neb 3 ML IH PRN (01:29)
[2017-06-23] MEDS ORDERED: *HR* Metoprolol 5 MG/5 ML VIAL IVP ONE ×2 (02:45→02:46)
[2017-06-23] MEDS ORDERED: Naloxone 0.4 MG/ML INJ IVP ONE (02:46)
[2017-06-23 03:00] LABS: Hematocrit 31.8 % (35.3-44.9); Hemoglobin 9.8 g/dL (11.5-15.4); Immature Platelets 2.2 % (1.1-6.1); Mean Corpuscular HGB Conc 30.8 g/dL (31.6-35.5); Mean Corpuscular Volume 94.1 fL (83.0-100.0); Mean Platelet Volume 8.9 fL (9.4-12.4); Red Blood Count 3.38 M/mcL (3.82-4.97)
[2017-06-23 03:04] LABS: INR 1.3; Prothrombin Time 13.9 Seconds (9.4-12.1)
[2017-06-23 03:16] LABS: Albumin 2.7 g/dL (3.5-5.0); Albumin/Globulin Ratio 0.8 (1.1-2.2); Bilirubin,Direct 0.2 mg/dL (0.0-0.5); Bilirubin,Indirect 0.3 mg/dL (0.0-1.2); Bilirubin,Total 0.5 mg/dL (0.2-1.2); Calcium 7.2 mg/dL (8.6-10.8); Globulin 3.2 g/dL (2.4-3.5); Magnesium 1.4 mg/dL (1.6-2.6); Potassium 3.6 mEq/L (3.5-4.5); Total Protein 5.9 g/dL (6.0-8.3)
[2017-06-23] MEDS ORDERED: Magnesium Sulfate 3 GM in D5% in Water 100 ML IVPB ONE (03:26)
--- NOTE | 2017-06-23 03:33 | Event Note ---
<Chapin Medina - Last Filed: 06/23/17 03:51> Date of Encounter: 06/23/17 Time of Encounter: 02:25 Ms. Squires 76-year-old female known history of hypertension, atrial fibrillation COPD who uses 3 L nasal cannula baseline demonstrated hypoxia and hypotension this evening. A rapid response was called at 2:25 AM to the patient 's room as she was poorly responsive, initial blood pressure was 56 systolically and oxygen saturations on a nonrebreather at 15 L were 84%. He was also found that she was in atrial fibrillation with rapid ventricular rate with heart rate up to 160. Upon arrival the patient was laid flat and the patient had, a 1 L normal saline bolus was provided. The blood pressure is rechecked and remained hypotensive around 75 systolically. The patient's history was reviewed and is identified that she had received 1 mg Dilaudid and 0.8 mg Narcan was administered. After administration of the Narcan the patient became a little more coherent, pupillary reflexes were more appropriate. An EKG was obtained which demonstrated atrial fibrillation with rapid ventricular rate. CBC, CMP, INR, lactic acid were drawn. A stat chest x-ray was obtained and was compared to a chest x-ray completed on 02/07/2017. There appears to be increased atelectasis versus airspace disease in the left lower lobe lung base and right lung base. Blood pressure began to improve after Narcan and 1 L normal saline bolus. Patient was administered 5 mg Lopressor IV with improvement of her rapid ventricular rate. Oxygen saturations remained greater than 90% on nonrebreather and blood pressure was stable around 90 systolically. - Significant laboratory results demonstrates creatinine of 1.67, GFR 30, calculated osmolality of 305. - Will restart patient Lopressor 5mg IV Q6hrs. - Heparin drip. - Patient was transferred to ICU stepdown for further management. <Darren Livingston - Last Filed: 06/23/17 06:38> Date of Encounter: 06/23/17 I examined this patient and my medical decision-making was reviewed with the Resident Physician, Dr. Chapin Medina. I agree with the documented findings, disposition and treatment plan as described except to the extent set forth below. I have independently obtained history and examined the patient and my findings are summarized below: A rapid response was called for lethargy and hypotension. She was diagnosed earlier today with atrial fibrillation with rapid ventricular response. On my arrival her blood pressure was 70/40. Pupils were pinpoint, she was responsive but somnolent. We ordered 0.8 mg of Narcan. Her mental status and blood pressure improved after administration of Narcan. Plan: Decrease IV Dilaudid from 1 mg which is too high of a dose to 0.25 mg as needed. Continue with IV fluids. Start IV metoprolol. Obtain echocardiogram. Consult cardiology.
[2017-06-23] MEDS: Heparin 25,000 UNIT/500 ML D5W 25,000 UNIT/500 ML MLS IVC SCH (04:04)
[2017-06-23] MEDS: *HR* Metoprolol 5 MG/5 ML VIAL IVP SCH ×3 (05:42→16:36)
[2017-06-23] MEDS ORDERED: *HR* Heparin 5,000 UNIT/ML VIAL SQ SCH (06:00)
[2017-06-23] MEDS: Pantoprazole 40 MG VIAL IVP SCH (07:34)
[2017-06-23] MEDS: Levofloxacin 500 MG/100 ML 500 MG/100 ML BAG IVPB SCH (07:37)
--- NOTE | 2017-06-23 09:32 | General Surg History&Physical ---
Date of Encounter: 06/23/17 Time of Encounter: 09:10 Assessment and Plan (1) Gallstone pancreatitis Current Visit: Yes Status: Acute The assessment and plan as outlined above was discussed with the patient and/or family members who expressed understanding and agreement. All questions were answered. NPO IV fluids Supportive care/pain control Serial abdominal exams Repeat labs Lipase- 452 this am Review films from outlying facility (2) Atrial fibrillation with RVR Current Visit: Yes Status: Acute The assessment and plan as outlined above was discussed with the patient and/or family members who expressed understanding and agreement. All questions were answered. Cardiology consulted for recommendations Troponin- 0.17 Echo to be complete this am (3) HTN (hypertension) Current Visit: No Status: Chronic The assessment and plan as outlined above was discussed with the patient and/or family members who expressed understanding and agreement. All questions were answered. Patient is currently normotensive Qualifiers: Hypertension type: essential hypertension Qualified Code(s): I10 - Essential (primary) hypertension (4) GERD (gastroesophageal reflux disease) Current Visit: Yes Status: Chronic The assessment and plan as outlined above was discussed with the patient and/or family members who expressed understanding and agreement. All questions were answered. PPI therapy daily Qualifiers: Esophagitis presence: esophagitis presence not specified Qualified Code(s) : K21.9 - Gastro-esophageal reflux disease without esophagitis (5) Asthma Current Visit: Yes Status: Chronic The assessment and plan as outlined above was discussed with the patient and/or family members who expressed understanding and agreement. All questions were answered. Supplemental oxygen- add humidification Duonebs IS every 1 hour while awake Management per medicine service Qualifiers: Asthma severity: unspecified severity Asthma complication type: uncomplicated Qualified Code(s): J45.909 - Unspecified asthma, uncomplicated (6) Hyperglycemia Current Visit: No Status: Chronic The assessment and plan as outlined above was discussed with the patient and/or family members who expressed understanding and agreement. All questions were answered. Will add low sliding scale insulin Continue to follow and adjust as necessary (7) Polymyalgia rheumatica Current Visit: No Status: Chronic The assessment and plan as outlined above was discussed with the patient and/or family members who expressed understanding and agreement. All questions were answered. On chronic steroids Currently on hold (8) Acute kidney injury Current Visit: No Status: Acute The assessment and plan as outlined above was discussed with the patient and/or family members who expressed understanding and agreement. All questions were answered. Cr- 1.67 IV fluids Avoid nephrotoxic medications Strict I&Os Repeat labs in the am (9) DVT prophylaxis Current Visit: No Status: Acute The assessment and plan as outlined above was discussed with the patient and/or family members who expressed understanding and agreement. All questions were answered. EPCDs to bilateral lower extremities for DVT prophylaxis Heparin gtt therapetic History of Present Illness Chief complaint: Abdominal pain with associated nausea/vomiting HPI: Ms. Squires is a 76 year old female with a past medical history significant for oxygen dependent COPD/Asthma, GERD, lumbar degenerative scoliosis, osteoporosis/ osteoarthritis, polymyalgia rheumatica, pre-diabetes, migraines, and lumbar radiculopathy. She reports that she had sudden onset of diffuse abdominal pain early Wednesday morning. She states that the pain was located all over her abdomen and she describes it as a sharp/stabbing pain. The pain radiates into her back. She has never experienced pain like this in the past. Denies any alleviating or aggrevating factors. She does report that the pain has improved since onset 2 days ago. She reports associated nausea/vomiting initially but states that his is better now. Denies any hematemesis of coffee ground emesis. She admits to chills initially but states that she feels hot at this time. Unsure of having fevers. She states that she had a normal bowel movement this morning. Denies any melena or hematochezia. Denies any increase in shortness of breath from her baseline. Denies any chest pains. Denies any difficulty with urination. She was admitted to [facility] in [place] where she was visiting and found to have gallstone pancreatitis. She was transferred to [facility] for continuation of care due to request (She is from the [place] area). During transfer she developed Atrial Fibrillation with RVR with a HR up to 180's. The hospitalist has been consulted for evaluation and treatment. Past Med Surg Social Fam HX - Past Medical History Source: patient, old records reviewed Medical history: arthritis (osteoarthritis/osteoporosis), asthma, COPD, diabetes (pre-diabetic), GERD, hyperlipidemia, hypertension, migraine, other ( polymyalgia rheumatica, lumbar degerative scoliosis, lumbar radiculopathy) Psychiatric history: anxiety - Past Surgical History Surgical History: appendectomy, breast surgery (biopsy), hysterectomy (bladder tuck), knee replacement (bilateral), other (tubal ligation, CTR, corneal transplant right eye) - Social History Smoking Status: Former smoker Smokeless Tobacco Status: No Alcohol use: none Drug use: none Current living situation: Home - Independent Activity Level: Independent ambulation - Family History Father Family Member Ethnicity: Non- Living Status: Age at : 55 Cause of : Heart condition Hx Family Cardiac Disorders: Yes Hx Family Respiratory Disorders: No Hx Family Cancer: No Hx Family GI Disorders: No Hx Family Endocrine Disorder: No Hx Family Neuromuscular Disorders: No Hx Family Neurologic Disorders: No Hx Family HEENT Disorders: No Hx Family Autoimmune Disorders: No Mother Living Status: Cause of : Heart problems Hx Family Cardiac Disorders: Yes Brother Living Status: Still Living Hx Family Cardiac Disorders: Yes (HTN) Hx Family Endocrine Disorder: Yes (Diabetes Mellitus) Daughter Living Status: Still Living Hx Family Cardiac Disorders: Yes (HTN) Hx Family Endocrine Disorder: Yes (Diabetes Mellitus) Sister Hx Family Cardiac Disorders: Yes (HTN) Hx Family Endocrine Disorder: Yes (Diabetes Mellitus, Thyroid disease) Medications and Allergies Albuterol Sulfate [Proair Hfa] 2 puff IH Q4H PRN 07/05/16 [History] Ascorbic Acid [Vitamin C] 500 mg PO DAILY 07/05/16 [History] Aspirin Enteric Coated [Aspirin EC] 81 mg PO DAILY 07/05/16 [History] Biotin 1 mg PO DAILY 07/05/16 [History] Cetirizine HCl [Zyrtec] 10 mg PO DAILY 07/05/16 [History] Citalopram Hydrobromide [Citalopram HBr] 10 mg PO DAILY 07/05/16 [History] Cyanocobalamin (Vitamin B-12) [Vitamin B12] 2,500 mcg PO DAILY 07/05/16 [History ] Diclofenac Sodium [Voltaren] 1 appl TP QID 07/05/16 [History] GuaiFENesin/Dextromethorphan [Mucinex Dm] 1 tab PO Q4H PRN 07/05/16 [History] Ibuprofen [Motrin] 800 mg PO Q8HR PRN 07/05/16 [History] Losartan Potassium [Cozaar] 50 mg PO DAILY 07/05/16 [History] Multivitamin [Multi-Day Vitamins] 1 tab PO DAILY 07/05/16 [History] Nortriptyline [Pamelor] 25 mg PO DAILY 07/05/16 [History] Omeprazole [PriLOSEC] 40 mg PO DAILY 07/05/16 [History] Budesonide/Formoterol 160/4.5 [Symbicort 160/4.5] 2 puff IH BIDR #1 inhaler 08/14 [Rx] Benzonatate [Tessalon] 200 mg PO TID PRN #0 capsule 08/30/16 [Rx] LORazepam [Ativan] 0.5 mg PO HS #30 tablet 08/30/16 [Rx] Ipratropium/Albuterol Neb [Duoneb] 3 ml IH QID PRN 02/07/17 [History] Lactobacillus [Culturelle] 2 cap PO DAILY 02/07/17 [History] Metoprolol Tartrate [Lopressor] 25 mg PO BID 02/07/17 [History] levoFLOXacin [Levaquin] 500 mg PO DAILY #2 tablet 02/11/17 [Rx] predniSONE [PredniSONE] 5 mg PO DAILY #0 02/11/17 [Rx] predniSONE [PredniSONE] 20 mg PO DAILY #6 tablet 02/11/17 [Rx] Allergies Penicillins Allergy (Severe, Verified 07/05/16 17:36) Swelling of Lip/Tongue/Throat Tetanus Vaccines and Toxoid [Tetanus Vaccines & Toxoid] Allergy (Verified 17:36) Confusion acetaminophen [From Darvocet-N] Adverse Reaction (Verified 07/05/16 17:36) Confusion propoxyphene [From Darvon] Adverse Reaction (Verified 07/05/16 17:36) Confusion Review of Systems ROS unobtainable: due to endotracheal tube (in the HPI) All systems PM: reviewed and no additional remarkable complaints except as stated All systems PM: A 10-system review of systems was performed and is negative for pertinent findings except as documented above in the HPI. General Surgery Exam Initial Vital Signs Temp Pulse Resp BP Pulse Ox 97.5 F L 80 18 95/54 93 06/22/17 23:23 06/22/17 23:23 06/22/17 23:23 06/22/17 23:23 06/22/17 23:23 - General physical appearance well developed, well nourished, moderate distress, moderate pain, obese - Eyes PERRL, normal ocular movement - ENT dry mucosa, atraumatic, normocephalic - Neck trachea midline - Respiratory normal respiratory effort, clear to auscultation, other (diminished bibasilar bases, on 10L oxygen via mask at this time) - Cardiovascular Cardiovascular exam: Present: irregular rhythm (Atrial Fibrillation with HR in the low 100's) - Abdomen Abdomen general surgery: Present: bowel sounds present (hypoactive), soft, distended, tender Abdominal Tenderness: Present: epigastic, RUQ - Integumentary Integumentary general surgery: Present: warm and dry - Neurologic Present: CN 2-12 grossly intact - Psychiatric Psychiatric general surgery: Present: appropriate, oriented to person, oriented to place, oriented to time, speech is normal, memory intact Results - Labs 06/23/17 02:52 06/23/17 02:52 Abnormal lab results WBC 17.4 K/mcL (4.3-11.1) H 06/23/17 02:52 RBC 3.38 M/mcL (3.82-4.97) L 06/23/17 02:52 Hgb 9.8 g/dL (11.5-15.4) L 06/23/17 02:52 Hct 31.8 % (35.3-44.9) L 06/23/17 02:52 MCHC 30.8 g/dL (31.6-35.5) L 06/23/17 02:52 MPV 8.9 fL (9.4-12.4) L 06/23/17 02:52 PT 13.9 Seconds (9.4-12.1) H 06/23/17 02:52 BUN 35 mg/dL (7-20) H 06/23/17 02:52 Creatinine 1.67 mg/dL (0.57-1.11) H 06/23/17 02:52 Est GFR ( Amer) 36 (> 60) L 06/23/17 02:52 Est GFR (Non-Af Amer) 30 (> 60) L 06/23/17 02:52 Glucose 156 mg/dL (70-99) H 06/23/17 02:52 POC Glucose 148 (58-89) H 06/23/17 02:27 Calculated Osmolality 305 (280-300) H 06/23/17 02:52 Calcium 7.2 mg/dL (8.6-10.8) L 06/23/17 02:52 Magnesium 1.4 mg/dL (1.6-2.6) L 06/23/17 02:52 Troponin I 0.17 ng/mL (0-0.03) H* 06/23/17 02:52 Serum Total Protein 5.9 g/dL (6.0-8.3) L 06/23/17 02:52 Albumin 2.7 g/dL (3.5-5.0) L 06/23/17 02:52 Albumin/Globulin Ratio 0.8 (1.1-2.2) L 06/23/17 02:52 Amylase 552 Units/L (25-125) H 06/23/17 02:52 Lipase 452 Units/L (8-78) H 06/23/17 02:52 Diabetes panel 06/23/17 Range/Units 02:52 Sodium 142 (136-145) mEq/L Potassium 3.6 (3.5-4.5) mEq/L Chloride 109 (98-109) mEq/L Carbon Dioxide 25 (19-29) mEq/L BUN 35 H (7-20) mg/dL Creatinine 1.67 H (0.57-1.11) mg/dL Glucose 156 H (70-99) mg/dL Calcium 7.2 L (8.6-10.8) mg/dL AST 33 (5-34) Units/L ALT 24 (0-55) Units/L Alkaline Phosphatase 68 (38-126) Units/L Albumin 2.7 L (3.5-5.0) g/dL Calcium panel 06/23/17 Range/Units 02:52 Calcium 7.2 L (8.6-10.8) mg/dL Albumin 2.7 L (3.5-5.0) g/dL Pituitary panel 06/23/17 Range/Units 02:52 Sodium 142 (136-145) mEq/L Potassium 3.6 (3.5-4.5) mEq/L Chloride 109 (98-109) mEq/L Carbon Dioxide 25 (19-29) mEq/L BUN 35 H (7-20) mg/dL Creatinine 1.67 H (0.57-1.11) mg/dL Glucose 156 H (70-99) mg/dL Calcium 7.2 L (8.6-10.8) mg/dL Adrenal panel 06/23/17 Range/Units 02:52 Sodium 142 (136-145) mEq/L Potassium 3.6 (3.5-4.5) mEq/L Chloride 109 (98-109) mEq/L Carbon Dioxide 25 (19-29) mEq/L BUN 35 H (7-20) mg/dL Creatinine 1.67 H (0.57-1.11) mg/dL Glucose 156 H (70-99) mg/dL Calcium 7.2 L (8.6-10.8) mg/dL Total Bilirubin 0.5 (0.2-1.2) mg/dL AST 33 (5-34) Units/L ALT 24 (0-55) Units/L Alkaline Phosphatase 68 (38-126) Units/L Albumin 2.7 L (3.5-5.0) g/dL All other labs normal. - VTE Documentation of Mechanical Device: Intermittent pneumatic compression device
--- NOTE | 2017-06-23 09:47 | Cardiology Consult Note ---
Date of Encounter: 06/23/17 Time of Encounter: 09:00 Assessment and Plan (1) Gallstone pancreatitis Current Visit: Yes Status: Acute Per cardiology: -Gallstone pancreatitis as per CT from [facility]. -Management per surgical services. (2) Atrial fibrillation with RVR Current Visit: Yes Status: Acute Per cardiology: -atrial fibrillation with RVR in the setting of pacreatitis. -Cardizem drip ordered, however on hold due to hypotension. -Lopressor 5mg IV q6PRN ordered. -Average HR previous 12 hours noted to be 119, atrial fibrillation. At time of assessment, HRs 100-110s. -BPs 90-100s systolic. -Chads 2vasc score 5 (age, gender, HTN, DM). Recommend terminal operator anticoagulation. Patient agreeable for terminal operator anticoagulation, however unable to give oral medications at this time due to pacreatits and recommendations from surgical team. -Echo 07/2016 with LVEF 65-70%, mild concentric left ventricular hypertrophy, mild diastolic dysfunction, moderate pulmonary hypertension, no significant valvular dysfunction, all soria with normal motion. -Echo pending. -Recommend re-starting IV cardizem drip when able due to hypotension. -Recommend continuing IV heparin drip for anticoagulation until able to take oral medications (3) Acute kidney injury Current Visit: No Status: Acute Per cardiology: -XANDER on admission with creatinine of 1.67. -Baseline creatinine 0.6-0.8. -Management per primary service (4) Elevated troponin Current Visit: No Status: Acute Per cardiology: -Troponin 0.17 in the settingof atrial fibrillation RVR and pancreatitis. -Denies chest pain. -ECG with no ischemic changes. -Echo 07/2016 as above. -Current echo pending. -Nuclear stress test 10/2014 negative for ischemia or infarct. -Do not suspect NSTEMI, suspect demand ischemia related to a.fib RVR, XANDER, and pancreatitis. -No cardiac rehab warranted at this time. Discussion w patient/family: The assessment and plan as outlined above was discussed with the patient who expressed understanding and agreement. All questions were answered. Thank you for involving us in the care of your patient. Please call with any questions. Discussed and reviewed with . History of Present Illness Consult date: 06/23/17 Requesting physician: Melissa Calhoun Consult reason: atrial fibrillation with RVR Chief complaint: Abdominal pain History of present illness: Ms. Squires is a 76 year old female with a relevant past medical history of GERD , HTN, and DM. Patient states her sister lives in [place] and was recently ill. Patient wanted to visit with her sister so she met her sister half way to [place]. Patient states while she was in hotel room, she had severe abdominal pain. Patient went to local urgent care and was then transferred to nearest hospital, [facility]. Patient was noted to have pancreatitis. Patient requested transfer to [place] in order to be close to her home and family. Cardiology has been consulted for atrial fibrillation with RVR. Patient states she had one episode of atrial fibrillation after a hysterectomy "many years ago. " Patient states she has nto followed with cardiology. Patient admits to occasional palpitations at home. Patient states she is independent at home and has only fallen once in the past year due to tripping going into her house. Patient denies bleeding or blood loss. Past Med Surg Social Fam HX - Past Medical History Attestation: Yes The following information was validated with the patient. Source: patient, old records reviewed Medical history: asthma, COPD, hyperlipidemia, hypertension, other Psychiatric history: anxiety - Past Surgical History Surgical History: appendectomy, hip replacement, hysterectomy - Social History Smoking Status: Former smoker Smokeless Tobacco Status: No Alcohol use: none Drug use: none - Family History Father Family Member Ethnicity: Non- Living Status: Hx Family Cardiac Disorders: Yes Hx Family Respiratory Disorders: No Hx Family Cancer: No Hx Family GI Disorders: No Hx Family Endocrine Disorder: No Hx Family Neuromuscular Disorders: No Hx Family Neurologic Disorders: No Hx Family HEENT Disorders: No Hx Family Autoimmune Disorders: No Mother Living Status: Cause of : Heart problems Hx Family Cardiac Disorders: Yes Brother Living Status: Still Living Hx Family Cardiac Disorders: Yes (HTN) Hx Family Endocrine Disorder: Yes (Diabetes Mellitus) Daughter Living Status: Still Living Hx Family Cardiac Disorders: Yes (HTN) Hx Family Endocrine Disorder: Yes (Diabetes Mellitus) Sister Hx Family Cardiac Disorders: Yes (HTN) Hx Family Endocrine Disorder: Yes (Diabetes Mellitus, Thyroid disease) Medications and Allergies Albuterol Sulfate [Proair Hfa] 2 puff IH Q4H PRN 07/05/16 [History] Ascorbic Acid [Vitamin C] 500 mg PO DAILY 07/05/16 [History] Aspirin Enteric Coated [Aspirin EC] 81 mg PO DAILY 07/05/16 [History] Biotin 1 mg PO DAILY 07/05/16 [History] Cetirizine HCl [Zyrtec] 10 mg PO DAILY 07/05/16 [History] Citalopram Hydrobromide [Citalopram HBr] 10 mg PO DAILY 07/05/16 [History] Cyanocobalamin (Vitamin B-12) [Vitamin B12] 2,500 mcg PO DAILY 07/05/16 [History ] Diclofenac Sodium [Voltaren] 1 appl TP QID 07/05/16 [History] GuaiFENesin/Dextromethorphan [Mucinex Dm] 1 tab PO Q4H PRN 07/05/16 [History] Ibuprofen [Motrin] 800 mg PO Q8HR PRN 07/05/16 [History] Losartan Potassium [Cozaar] 50 mg PO DAILY 07/05/16 [History] Multivitamin [Multi-Day Vitamins] 1 tab PO DAILY 07/05/16 [History] Nortriptyline [Pamelor] 25 mg PO DAILY 07/05/16 [History] Omeprazole [PriLOSEC] 40 mg PO DAILY 07/05/16 [History] Budesonide/Formoterol 160/4.5 [Symbicort 160/4.5] 2 puff IH BIDR #1 inhaler 08/14 [Rx] Benzonatate [Tessalon] 200 mg PO TID PRN #0 capsule 08/30/16 [Rx] LORazepam [Ativan] 0.5 mg PO HS #30 tablet 08/30/16 [Rx] Ipratropium/Albuterol Neb [Duoneb] 3 ml IH QID PRN 02/07/17 [History] Lactobacillus [Culturelle] 2 cap PO DAILY 02/07/17 [History] Metoprolol Tartrate [Lopressor] 25 mg PO BID 02/07/17 [History] levoFLOXacin [Levaquin] 500 mg PO DAILY #2 tablet 02/11/17 [Rx] predniSONE [PredniSONE] 5 mg PO DAILY #0 02/11/17 [Rx] predniSONE [PredniSONE] 20 mg PO DAILY #6 tablet 02/11/17 [Rx] Allergies Penicillins Allergy (Severe, Verified 07/05/16 17:36) Swelling of Lip/Tongue/Throat Tetanus Vaccines and Toxoid [Tetanus Vaccines & Toxoid] Allergy (Verified 17:36) Confusion acetaminophen [From Darvocet-N] Adverse Reaction (Verified 07/05/16 17:36) Confusion propoxyphene [From Darvon] Adverse Reaction (Verified 07/05/16 17:36) Confusion All Systems Review: A 10-system review of systems was performed and is negative for pertinent findings except as documented above in the HPI. - Cardiovascular Cardiovascular: as per HPI, irregular heart rhythm, palpitations Physical Examination Vital Signs, Last 4 Hours Temp Pulse Resp BP Pulse Ox 06/23/17 07:31 97.8 F 104 22 99/61 90 General: Conversant, No Apparent Distress HEENT: Atraumatic, Normocephaly, Mucus Membranes Moist Neck: No JVD, Normal carotid pulses Cardiac: Normal S1 and S2, No Murmur, Other (Irregularly, irregular) Lungs: Normal Breath Sounds, No Wheeze, Rales, Rhonchi Neuro: Alert and responsive, No focal deficits noted Abdomen: Soft, Other (Abdomen tender to palpation. ) Skin: No rashes noted on visualized skin Musculoskeletal: No Chest Wall Tenderness Extremities: No Clubbing, No Cyanosis, Normal Pulses, Other (Mild bilateral pedal edema noted, non-pitting. ) Results 06/23/17 09:57 06/23/17 02:52 Lab Results Impressions Chest X-Ray 06/23/17 02:48 IMPRESSION: Bibasilar opacities which may reflect pneumonia or a combination of pleural effusion and partial lower lobe atelectasis. D/ / 06/23/2017 07:04:40 Jeison Corey MD / earnold Interpreting Provider: Jeison Corey MD Active Medications Albuterol/Ipratropium (Duoneb) 3 ml IH [id number] PRN PRN Reason: Shortness Of Breath/Wheezing Stop: 12/23/17 01:30 Heparin Sodium (Porcine) (Heparin) 5,700 unit 70 unit/kg (5700 unit) IVP Q6HR PRN PRN Reason: SEE COMMENTS Stop: 12/23/17 03:47 Last Admin: 06/23/17 04:03 Dose: 5,700 unit Heparin Sodium (Porcine) (Heparin) 2,900 unit 35 unit/kg (2900 unit) IVP Q6H PRN PRN Reason: SEE COMMENTS Stop: 12/23/17 03:47 Sodium Chloride (0.9 % Sodium Chloride) 1,000 mls @ 125 mls/hr IVC .Q8H [facility] Stop: 12/22/17 23:46 Last Admin: 06/23/17 00:37 Dose: 125 mls/hr Levofloxacin/Dextrose (Levaquin Premix 500mg/100ml) 500 mg in 100 mls @ 100 mls /hr IVPB Q48H MOY PRN Reason: Protocol Stop: 12/23/17 09:01 Last Admin: 06/23/17 07:37 Dose: 100 mls/hr Metronidazole (Flagyl Premix 500 Mg/100 Ml) 500 mg in 100 mls @ 100 mls/hr IVPB Q8HR [facility] Stop: 12/23/17 00:01 Last Admin: 06/23/17 07:35 Dose: 100 mls/hr Heparin Sodium/Dextrose (Heparin 25,000 Unit/500 Ml D5w) 25,000 unit in 500 mls @ 22.904 mls/hr IVC .[id number] MOY; 14 UNIT/KG/HR PRN Reason: Protocol Stop: 12/23/17 04:01 Last Admin: 06/23/17 04:04 Dose: 14 unit/kg/hr, 22.904 mls/hr Lorazepam (Ativan) 0.5 mg IVP Q6HR PRN PRN Reason: Insomnia Stop: 12/22/17 23:57 Metoprolol Tartrate (Lopressor) 5 mg IVP Q6HR [facility] Stop: 12/23/17 06:01 Last Admin: 06/23/17 05:42 Dose: 5 mg Ondansetron HCl (Zofran) 4 mg IVP Q6HR PRN; Protocol PRN Reason: Nausea And Vomiting Stop: 12/22/17 23:52 Pantoprazole Sodium (Protonix) 40 mg IVP DAILY [facility] Stop: 12/23/17 09:01 Last Admin: 06/23/17 07:34 Dose: 40 mg Laboratory Tests 08/26/16 08/27/16 02/10/17 06:26 05:32 06:06 WBC Hgb 9.5 L 9.8 L Creatinine 0.83 Magnesium Troponin I Amylase Lipase 02/11/17 02/11/17 06/23/17 06:12 06:12 02:52 WBC Hgb 12.2 Creatinine 0.80 Magnesium Troponin I 0.17 H* Amylase Lipase 06/23/17 06/23/17 02:52 02:52 WBC 17.4 H Hgb 9.8 L Creatinine 1.67 H Magnesium 1.4 L Troponin I Amylase 552 H Lipase 452 H - Imaging and Cardiology Chest Xray: report reviewed Echo: pending, report reviewed Other Results: CT abdomen report reviewed - EKG Interpretation EKG results cardiology: personally reviewed (ECG reviewed with atrial fibrillation with RVR, HR 147. PVCs noted.), other (Telemetry reviewed with average HR previous 12 hours noted to be 119, atrial fibrillation. Longest pause 1.2 seconds. Frequent PVCs and couplets noted.) Consult Discharge Plan - Plan Referrals: Mazin Rios [Other] - 07/05/17 10:30 am Oliverio Jenkins DO [Partnered Physician] -
[2017-06-23 10:13] LABS: Hematocrit 29.5 % (35.3-44.9); Hemoglobin 9.5 g/dL (11.5-15.4); Mean Corpuscular HGB Conc 32.2 g/dL (31.6-35.5); Mean Corpuscular Hemoglobin 30.1 pg (28.0-33.3); Mean Corpuscular Volume 93.4 fL (83.0-100.0); Mean Platelet Volume 9.5 fL (9.4-12.4); Platelet Count 218 K/mcL (140-400); Red Blood Count 3.16 M/mcL (3.82-4.97); Red Cell Distribution Width 14.4 % (11.5-14.5)
[2017-06-23 10:32] LABS: Albumin 2.7 g/dL (3.5-5.0); Albumin/Globulin Ratio 0.8 (1.1-2.2); Bilirubin,Direct 0.2 mg/dL (0.0-0.5); Bilirubin,Indirect 0.2 mg/dL (0.0-1.2); Bilirubin,Total 0.4 mg/dL (0.2-1.2); Globulin 3.2 g/dL (2.4-3.5); Lymphocytes # 0.6 K/mcL (0.6-4.6); Neutrophils # 13.2 K/mcL (1.6-8.9); Platelet Estimate Normal (Normal); Potassium 4.2 mEq/L (3.5-4.5); Total Protein 5.9 g/dL (6.0-8.3)
[2017-06-23 10:34] LABS: Activated Partial Thrombo Time 167.4 Seconds (26.0-36.0)
[2017-06-23 10:45] LABS: Heparin anti-factor XA UFH 1.18 IU/mL (0.30-0.70)
[2017-06-23] MEDS ORDERED: *HR* Morphine 2 MG/ML SYRINGE IVP PRN (13:35)
[2017-06-23] MEDS ORDERED: Naloxone 0.4 MG/ML INJ IVP PRN (13:47)
--- NOTE | 2017-06-23 14:15 | Electrocardiograph Report ---
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
--- NOTE | 2017-06-23 14:16 | Electrocardiograph Report ---
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
--- NOTE | 2017-06-23 14:17 | Electrocardiograph Report ---
[place] [address] Test Date: 2017-06-23 Pat Name: Adriana Squires Department: 115 Room: 2N13 Gender: F Section Maintainer: : 1940 Requested By: Baldemar Gannon Order Number: [id number] Reading MD: Amaury Brand MD Measurements Intervals [place] Rate: 141 P: ID: 0 QRS: 55 QRSD: 79 T: -83 QT: 288 QTc: 370 Interpretive Statements ATRIAL FIBRILLATION WITH RAPID VENTRICULAR RESPONSE WITH ABERRANT CONDUCTION OR VENTRICULAR PREMATURE COMPLEXES Electronically Signed On 06-23-2017 14:15:23 EDT by Amaury Brand MD
[2017-06-23] MEDS ORDERED: *HR* Dextrose 50 % in Water (Syg) 50 ML SYRINGE IVP PRN (14:23)
[2017-06-23] MEDS ORDERED: Dextrose Gel 15 GM PO PRN ×2 (14:23)
[2017-06-23] MEDS ORDERED: D5% in Water 1,000 ML IVC PRN (14:23)
--- NOTE | 2017-06-23 15:03 | Event Note ---
Date of Encounter: 06/23/17 Time of Encounter: 15:00 - Cardiology Event Note Pateint's HR noted to be 160s. BP 111/73. Per discussion with , will give cardizem bolus 10mg x1. Will start cardizem drip at 10mg/hour and will titrate for HR less than 100 and SBP greater than 90. Gupta check for eliquis noted to be $77.68/month. Offered coumadin to patient for better affordability, however she refuses to take coumadin. Patient states she would be willing to start eliquis and that $77.68 would be affordable for her. Recommend starting oral anticoagulation once able to from surgical standpoint. Cardiology will continue to monitor BP and HR.
--- NOTE | 2017-06-23 15:36 | Internal Med Progress Note ---
Date of Encounter: 06/23/17 Time of Encounter: 12:00 - Assessment and plan (1) Diabetes Current Visit: Yes Status: Acute Assessment and plan: Patient takes metformin at home. Will hold metformin now and cover patient with sliding scale. Qualifiers: Diabetes mellitus type: type 2 Diabetes mellitus complication status: without complication Diabetes mellitus half-way insulin use: without termite control servicer use Qualified Code(s): E11.9 - Type 2 diabetes mellitus without complications (2) DVT prophylaxis Current Visit: No Status: Acute Assessment and plan: Patient is on heparin drip now (3) Dehydration Current Visit: No Status: Acute Assessment and plan: Continue IV fluid. (4) Acute kidney injury Current Visit: No Status: Acute Assessment and plan: Probably due to nausea vomiting, dehydration. Continue IV fluid. Follow-up renal function. (5) Hypomagnesemia Current Visit: No Status: Acute Assessment and plan: Has been supplement already. (6) Gallstone pancreatitis Current Visit: Yes Status: Acute Assessment and plan: Management per surgical team. Patient is on nothing by mouth, IV fluid, and the pain medication. She is also on antibiotics. (7) COPD (chronic obstructive pulmonary disease) Current Visit: Yes Status: Acute Assessment and plan: Stable, no wheezing. Continue low rate nasal cannula oxygen to maintain SPO2 around 90%. Qualifiers: COPD type: emphysema Emphysema type: other Qualified Code(s): J43.8 - Other emphysema (8) Atrial fibrillation with RVR Current Visit: Yes Status: Acute Assessment and plan: Still tachycardia with HR 130-140s. A Fib. BP is more tolerated Cardizem after IV fluid hydration. Will restart Cardizem right now. Cardiology consult appreciated. Continue heparin drip for anticoagulation. May switch to by mouth as patient tolerated by mouth medication. Patient is at high risk because she is on heparin drip need close monitoring. (9) Polymyalgia rheumatica Current Visit: No Status: Chronic Assessment and plan: Patient is on chronic steroid, prednisone 5mg daily. She need stress dose because of acute pancreatitis. Will start hydrocortisone 50 mg IV every 8 hours - Time Spent With Patient Greater than 35 minutes - Subjective Interval history: Patient is a 76-year-old female transferred from [facility] for acute pancreatitis, gallstone. Patient is planned for surgery by our surgical team. However, patient did develop poorly responsive and hypotension last night, rapid response was called. Patient was also found A Fib with rapid ventricular response. Patient was treated with IV fluid and Narcan. Her mental condition has improved. I saw and examined patient today. She is still in mild acute distress. Heart rate is still high at 13--140s, A Fib. Cardiology consult appreciated. Heparin drip started. Cardizem drip will be started if the patient's BP tolerate. Continue IV fluid, nothing by mouth, and antibiotic for gallstone pancreatitis per surgical team. - Constitutional Vitals: Temp Pulse Resp BP Pulse Ox 97.5 F L 116 20 113/56 93 06/23/17 11:20 06/23/17 11:20 06/23/17 11:20 06/23/17 11:20 06/23/17 11:20 General appearance: Present: mild distress, A&O X 3, answers questions appropriately - Head Head exam: Present: atraumatic, normocephalic - Eye Eye exam: Present: PERRL, conjuntiva pink, sclera anicteric Pupils: Present: PERRL - Neck Neck exam general surgery: Present: supple, trachea midline. Absent: lymphadenopathy - Respiratory Respiratory exam: Present: CTAB. Absent: accessory muscle use, rales, rhonchi, wheezes - Cardiovascular Cardiovascular exam: Present: irregular rhythm, +S1, +S2, tachycardia. Absent: diastolic murmur, gallop, rubs, systolic murmur - GI/Abdominal GI/Abdominal exam: Present: normal bowel sounds, soft, tenderness (Right upper quadrant and the left upper quadrant tenderness, with guarding and rebound), no peritoneal signs. Absent: distended - Extremities Exam Extremities exam: Present: warm, radial pulses palpable and symetrical. Absent : calf tenderness, cyanotic, pedal edema - Neurological Exam Neurological exam: Present: CN II-XII intact, oriented X3, no focal deficits. Absent: pronater drift, facial droop, speech deficit - Skin Skin exam: Present: dry, intact Internal Medicine: Result - Labs CBC & Chem 7: 06/23/17 09:57 06/23/17 09:57 Labs: Short CBC 06/23/17 06/23/17 Range/Units 02:52 09:57 WBC 17.4 H 14.3 H (4.3-11.1) K/mcL Hgb 9.8 L 9.5 L (11.5-15.4) g/dL Hct 31.8 L 29.5 L (35.3-44.9) % Plt Count 263 218 (140-400) K/mcL Neutrophils # 13.2 H (1.6-8.9) K/mcL BMP 06/23/17 06/23/17 02:52 09:57 Sodium 142 139 Potassium 3.6 4.2 Chloride 109 108 Carbon Dioxide 25 25 BUN 35 H 39 H Creatinine 1.67 H 1.77 H Glucose 156 H 163 H Calcium 7.2 L 7.0 L Cardiac Enzymes 06/23/17 06/23/17 Range/Units 02:52 09:57 Troponin I 0.17 H* 0.77 H* (0-0.03) ng/mL Liver Function 06/23/17 06/23/17 Range/Units 02:52 09:57 Total Bilirubin 0.5 0.4 (0.2-1.2) mg/dL Direct Bilirubin 0.2 0.2 (0.0-0.5) mg/dL AST 33 35 H (5-34) Units/L ALT 24 25 (0-55) Units/L Alkaline Phosphatase 68 63 (38-126) Units/L Albumin 2.7 L 2.7 L (3.5-5.0) g/dL - ABG Interpretation ABG results: PT/INR, D-dimer PT 13.9 Seconds (9.4-12.1) H 06/23/17 02:52 - Impressions Impressions Chest X-Ray 06/23/17 02:48 IMPRESSION: Bibasilar opacities which may reflect pneumonia or a combination of pleural effusion and partial lower lobe atelectasis. D/ / 06/23/2017 07:04:40 Jeison Corey MD / earnold Interpreting Provider: Jeison Corey MD - VTE Documentation of Mechanical Device: Intermittent pneumatic compression device Consult Discharge Plan - Plan Referrals: Mazin Rios [Other] - 07/05/17 10:30 am Oliverio Jenkins DO [Partnered Physician] -
[2017-06-23] MEDS: Hydrocortisone Sodium Succ 100 MG/2 ML VIAL IVP SCH (16:36)
[2017-06-23] MEDS: Insulin LISPRO 300 UNITS/3 ML VIAL SQ SCH (16:55)
[2017-06-24] MEDS: MetroNIDAZOLE 500 MG/100 ML 500 MG/100 ML BAG IVPB SCH ×4 (00:13→23:21)
[2017-06-24] MEDS: *HR* Metoprolol 5 MG/5 ML VIAL IVP SCH ×5 (00:13→23:21)
[2017-06-24] MEDS: Hydrocortisone Sodium Succ 100 MG/2 ML VIAL IVP SCH ×4 (00:13→23:21)
[2017-06-24] MEDS: Insulin LISPRO 300 UNITS/3 ML VIAL SQ SCH ×4 (00:21→18:24)
[2017-06-24 02:05] LABS: Hematocrit 29.4 % (35.3-44.9); Hemoglobin 9.3 g/dL (11.5-15.4); Immature Granulocytes % 0.5 % (0-4); Lymphocytes # 0.2 K/mcL (0.6-4.6); Lymphocytes % 1.6 %; Mean Corpuscular HGB Conc 31.6 g/dL (31.6-35.5); Mean Corpuscular Hemoglobin 29.6 pg (28.0-33.3); Mean Corpuscular Volume 93.6 fL (83.0-100.0); Mean Platelet Volume 9.4 fL (9.4-12.4); Monocytes # 0.6 K/mcL (0.0-1.3); Monocytes % 3.8 %; Neutrophils # 13.9 K/mcL (1.6-8.9); Platelet Count 209 K/mcL (140-400); Red Blood Count 3.14 M/mcL (3.82-4.97); Red Cell Distribution Width 14.5 % (11.5-14.5); Segmented Neutrophils % 94.1 %
[2017-06-24 02:24] LABS: Albumin 2.6 g/dL (3.5-5.0); Albumin/Globulin Ratio 0.8 (1.1-2.2); Bilirubin,Direct 0.2 mg/dL (0.0-0.5); Bilirubin,Indirect 0.1 mg/dL (0.0-1.2); Bilirubin,Total 0.3 mg/dL (0.2-1.2); Calcium 6.7 mg/dL (8.6-10.8); Globulin 3.4 g/dL (2.4-3.5); Potassium 3.9 mEq/L (3.5-4.5)
[2017-06-24 02:29] LABS: Albumin 2.6 g/dL (3.5-5.0); Albumin/Globulin Ratio 0.7 (1.1-2.2); Bilirubin,Total 0.3 mg/dL (0.2-1.2); Calcium 6.7 mg/dL (8.6-10.8); Globulin 3.5 g/dL (2.4-3.5); Magnesium 2.2 mg/dL (1.6-2.6); Potassium 3.9 mEq/L (3.5-4.5); Total Protein 6.1 g/dL (6.0-8.3)
[2017-06-24 02:41] LABS: Thyroid Stimulating Hormone 0.708 mcIU/mL (0.350-4.840)
[2017-06-24 02:58] LABS: Platelet Estimate Normal (Normal)
[2017-06-24] MEDS: 0.9 % Sodium Chloride 1,000 ML IVC SCH ×3 (06:21→16:29)
[2017-06-24] MEDS: Heparin 25,000 UNIT/500 ML D5W 25,000 UNIT/500 ML MLS IVC SCH (06:34)
[2017-06-24] MEDS: Pantoprazole 40 MG VIAL IVP SCH (07:18)
--- NOTE | 2017-06-24 08:20 | Cardiology Progress Note ---
Date of Encounter: 06/24/17 Time of Encounter: 08:20 Assessment and Plan (1) Gallstone pancreatitis Current Visit: Yes Status: Acute Per cardiology: Gallstone pancreatitis as per CT from [facility]. Management per surgical services-- per discussion with Dr. Jenkins, potential surgical intervention tomorrow. (2) Afib Current Visit: Yes Status: Acute Per Cardiology: Atrial fibrillation with RVR in the setting of pacreatitis. Patient noted to be A. fib with RVR yesterday evening and started on Cardizem gtt-- currently off and patient in sinus rhythm in the 80s. Monitor shows average heart rate the past 12 hours 81-- SR. Current systolic pressure in the 140s. Ideally would initiate by mouth medications, however remains nothing by mouth due to pancreatitis. Resume Cardizem drip if needed. Recommend medications once able to take by mouth. TSH and magnesium stable. Regarding long-term anticoagulation, Chads 2vasc score 5 (age, gender, HTN, DM) . 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 Patient agreeable for [employer] anticoagulation, however unable to give oral medications at this time due to pacreatits and recommendations from surgical team. Her only on IV heparin drip. Gupta check completed for Ronnieis the cost of roughly $78 per month-- agreeable to proceed when able to take by mouth medications. Qualifiers: Atrial fibrillation type: paroxysmal Qualified Code(s): I48.0 - Paroxysmal atrial fibrillation (3) Hypomagnesemia Current Visit: No Status: Resolved Per Cardiology: Resolved. (4) Elevated troponin Current Visit: No Status: Acute Per cardiology: Troponin 0.17 in the setting of atrial fibrillation RVR and pancreatitis. Denies chest pain. Nuclear stress test 10/2014 negative for ischemia or infarct. Echo showed EF preserved 65%, no segmental wall motion abnormalities. Do not suspect NSTEMI, suspect demand ischemia related to a.fib RVR, XANDER, and pancreatitis. (5) Acute kidney injury Current Visit: No Status: Acute Per cardiology: XANDER on admission with creatinine of 1.67. Improving. Avoid nephrotoxins. Baseline creatinine 0.6-0.8. Management per primary service Discussion w patient/family: The assessment and plan as outlined above was discussed with the patient who expressed understanding and agreement. All questions were answered. Thank you for involving us in the care of your patient. Please call with any questions. Subjective Principal diagnosis: Afib RVR Interval history: Patient denies any chest pain, short of breath, palpitations. Denies any active bleeding or blood loss. Reports some mild right upper quadrant abdominal discomfort to palpation. Reports occasional swelling to lower extremities. Objective Vital Signs, Last 4 Hours Temp Pulse Resp BP Pulse Ox 06/24/17 07:45 97.5 F L 77 18 145/73 93 06/24/17 04:44 97.7 F 83 18 148/66 93 General: Conversant, No Apparent Distress HEENT: Atraumatic, Normocephaly, Mucus Membranes Moist Cardiac: Reg Rate and Rhythm, Normal S1 and S2, No Murmur Lungs: Normal Breath Sounds, No Wheeze, Rales, Rhonchi Neuro: Alert and responsive, No focal deficits noted Abdomen: Soft, Other (Slightly tender to palpation) Skin: No rashes noted on visualized skin Musculoskeletal: No Chest Wall Tenderness Extremities: No Clubbing, No Cyanosis, No Edema, Normal Pulses Results 06/24/17 01:45 06/24/17 01:45 Lab Results Laboratory Tests 08/22/16 06/23/17 06/23/17 22:18 02:52 02:52 WBC Hgb Hct INR 1.3 Creatinine Magnesium AST ALT Troponin I 1.35 H* 0.17 H* Amylase Lipase TSH 06/23/17 06/23/17 06/23/17 02:52 02:52 09:57 WBC 17.4 H Hgb 9.8 L Hct 31.8 L INR Creatinine 1.67 H Magnesium 1.4 L AST ALT Troponin I 0.77 H* Amylase 552 H Lipase 452 H TSH 06/24/17 06/24/17 06/24/17 01:45 01:45 01:45 WBC 14.8 H Hgb 9.3 L Hct 29.4 L INR Creatinine 1.21 H Magnesium 2.2 AST 33 ALT 22 Troponin I Amylase 148 H Lipase 108 H TSH 0.708 ITS Impressions Chest X-Ray 06/23/17 02:48 IMPRESSION: Bibasilar opacities which may reflect pneumonia or a combination of pleural effusion and partial lower lobe atelectasis. D/ / 06/23/2017 07:04:40 Jeison Corey MD / [facility] Interpreting Provider: Jeison Corey MD Intake & Output 06/21/17 06/22/17 06/23/17 06/24/17 23:59 23:59 23:59 23:59 Intake Total 2586.7 / 2586.7 1478 / 1478 Output Total 175 / 175 325 / 325 Balance 2411.7 / 2411.7 1153 / 1153 Weight 80.3 kg 81.8 kg 81.8 kg Active Medications Albuterol/Ipratropium (Duoneb) 3 ml IH [id number] PRN PRN Reason: Shortness Of Breath/Wheezing Stop: 12/23/17 01:30 Last Admin: 06/23/17 17:33 Dose: 3 ml Dextrose/Water (Dextrose 50% (Syg)) 25 ml IVP AD PRN PRN Reason: Hypoglycemia Stop: 12/23/17 14:24 Glucagon (Glucagen) 1 mg IM ONCE PRN PRN Reason: Hypoglycemia Stop: 12/23/17 14:24 Glucose (Gluctose) 15 gm PO ONCE PRN PRN Reason: Hypoglycemia Stop: 12/23/17 14:24 Glucose (Gluctose) 30 gm PO ONCE PRN PRN Reason: Hypoglycemia Stop: 12/23/17 14:24 Heparin Sodium (Porcine) (Heparin) 5,700 unit 70 unit/kg (5700 unit) IVP Q6HR PRN PRN Reason: SEE COMMENTS Stop: 12/23/17 03:47 Last Admin: 06/23/17 04:03 Dose: 5,700 unit Heparin Sodium (Porcine) (Heparin) 2,900 unit 35 unit/kg (2900 unit) IVP Q6H PRN PRN Reason: SEE COMMENTS Stop: 12/23/17 03:47 Last Admin: 06/23/17 19:53 Dose: 2,900 unit Hydrocortisone Sodium Succinate (Solu-Cortef) 100 mg IVP Q8HR MOY Stop: 12/23/17 16:01 Last Admin: 06/24/17 07:18 Dose: 100 mg Sodium Chloride (0.9 % Sodium Chloride) 1,000 mls @ 125 mls/hr IVC .Q8H MOY Stop: 12/22/17 23:46 Last Admin: 06/24/17 07:18 Dose: 125 mls/hr Levofloxacin/Dextrose (Levaquin Premix 500mg/100ml) 500 mg in 100 mls @ 100 mls /hr IVPB Q48H MOY PRN Reason: Protocol Stop: 12/23/17 09:01 Last Infusion: 06/23/17 14:06 Dose: Infused Metronidazole (Flagyl Premix 500 Mg/100 Ml) 500 mg in 100 mls @ 100 mls/hr IVPB Q8HR MOY Stop: 12/23/17 00:01 Last Admin: 06/24/17 07:19 Dose: 100 mls/hr Heparin Sodium/Dextrose (Heparin 25,000 Unit/500 Ml D5w) 25,000 unit in 500 mls @ 22.904 mls/hr IVC .[id number] MOY; 14 UNIT/KG/HR PRN Reason: Protocol Stop: 12/23/17 04:01 Last Admin: 06/24/17 06:34 Dose: 12.83 unit/kg/hr, 21 mls/hr Dextrose (Dextrose 5%) 1,000 mls @ 100 mls/hr IVC .Q10H PRN PRN Reason: HYPOGLYCEMIA Stop: 12/23/17 14:24 Diltiazem HCl 125 mg/ Dextrose 125 mls @ 10 mls/hr IVC .[id number] MOY; 10 MG/HR PRN Reason: Protocol Stop: 12/23/17 15:01 Last Titration: 06/24/17 00:27 Dose: 0 mg/hr, 0 mls/hr Insulin Human Lispro (Humalog) 0 units SQ Q6HR MOY PRN Reason: Protocol Stop: 12/23/17 18:01 Last Admin: 06/24/17 06:30 Dose: Not Given Lorazepam (Ativan) 0.5 mg IVP Q6HR PRN PRN Reason: Insomnia Stop: 12/22/17 23:57 Metoprolol Tartrate (Lopressor) 5 mg IVP Q6HR MOY Stop: 12/23/17 06:01 Last Admin: 06/24/17 06:30 Dose: 5 mg Morphine Sulfate (Morphine Sulfate) 1 mg IVP Q6HR PRN PRN Reason: Severe Pain Stop: 12/23/17 13:36 Naloxone HCl (Narcan) 0.4 mg IVP Q2MIN PRN PRN Reason: SEE COMMENTS Stop: 12/23/17 13:48 Ondansetron HCl (Zofran) 4 mg IVP Q6HR PRN; Protocol PRN Reason: Nausea And Vomiting Stop: 12/22/17 23:52 Last Admin: 06/23/17 16:35 Dose: 4 mg Pantoprazole Sodium (Protonix) 40 mg IVP DAILY MOY Stop: 12/23/17 09:01 Last Admin: 06/24/17 07:18 Dose: 40 mg - Imaging and Cardiology Chest Xray: report reviewed Echo: report reviewed - EKG Interpretation EKG results cardiology: other (24-hour telemetry reviewed and average heart rate the past 12 hours 81, currently sinus rhythm) - VTE Documentation of Mechanical Device: Intermittent pneumatic compression device Consult Discharge Plan - Plan Referrals: Mazin Rios [Other] - 07/05/17 10:30 am Oliverio Jenkins DO [Partnered Physician] -
--- NOTE | 2017-06-24 13:41 | Event Note ---
Date of Encounter: 06/24/17
--- NOTE | 2017-06-24 14:15 | Event Note ---
Date of Encounter: 06/24/17 Time of Encounter: 14:[address] Fragoso, patient considered intermediate risk for intermediate risk procedure from a cardiac standpoint. Recommend BB preoperatively. Patient aware of risk.
--- NOTE | 2017-06-24 14:49 | Internal Med Progress Note ---
Date of Encounter: 06/24/17 Time of Encounter: 10:00 - Assessment and plan (1) Diabetes Current Visit: Yes Status: Acute Assessment and plan: Patient takes metformin at home. Will hold metformin now and cover patient with sliding scale. Glucose level is stable. 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 (4) Acute kidney injury Current Visit: No Status: Acute Assessment and plan: Probably due to nausea vomiting, dehydration. Continue IV fluid. Follow-up renal function. Renal function slightly improved. (5) Hypomagnesemia Current Visit: No Status: Resolved Assessment and plan: Has been supplement already. Repeat magnesium level 2.2 (6) Gallstone pancreatitis Current Visit: Yes Status: Acute Assessment and plan: Management per surgical team. Patient is on nothing by mouth, IV fluid, and the pain medication. She is also on antibiotics. - Plan for surgery tomorrow per surgical team. (7) COPD (chronic obstructive pulmonary disease) Current Visit: Yes Status: Acute Assessment and plan: Stable, no wheezing. Continue nasal cannula oxygen to maintain SPO2 around 90% . Patient uses 3 L oxygen at home. Now need 8-10 L, hypoxia probably due to ALI caused by acute pancreatitis on the basis of patient's COPD. No signs of CO2 retention as bicarbonate level 21. Qualifiers: COPD type: emphysema Emphysema type: other Qualified Code(s): J43.8 - Other emphysema (8) Atrial fibrillation with RVR Current Visit: Yes Status: Acute Assessment and plan: Convert to sinus rhythm right now. Cardizem drip has been discontinued and place as needed because patient is nothing by mouth cannot take by mouth Cardizem.. Continue heparin drip for anticoagulation. May switch to by mouth as patient tolerated by mouth medication. Patient is at high risk because she is on heparin drip need close monitoring. (9) Polymyalgia rheumatica Current Visit: No Status: Chronic Assessment and plan: Patient is on chronic steroid, prednisone 5mg daily. She need stress dose because of acute pancreatitis. Will start hydrocortisone 100 mg IV every 8 hours - Time Spent With Patient Greater than 35 minutes - Subjective Interval history: Patient is a 76-year-old female transferred from [facility] for acute pancreatitis, gallstone. Patient is planned for surgery by our surgical team. However, patient did develop A Fib with rapid ventricular response. I saw and examined patient today. She is still in mild acute pain. Feels better. HR convert to sinus rhythm now. Still need high oxygen to maintain SpO2. Continue heparin drip. Continue IV fluid, nothing by mouth, and antibiotic for gallstone pancreatitis per surgical team. - Constitutional Vitals: Temp Pulse Resp BP Pulse Ox 97.9 F 82 18 154/66 92 06/24/17 11:34 06/24/17 11:38 06/24/17 11:34 06/24/17 11:34 06/24/17 11:34 General appearance: Present: mild distress, A&O X 3, answers questions appropriately - Head Head exam: Present: atraumatic, normocephalic - Eye Eye exam: Present: PERRL, conjuntiva pink, sclera anicteric Pupils: Present: PERRL - Neck Neck exam general surgery: Present: supple, trachea midline. Absent: lymphadenopathy - Respiratory Respiratory exam: Present: CTAB. Absent: accessory muscle use, rales, rhonchi, wheezes - Cardiovascular Cardiovascular exam: Present: RRR, +S1, +S2. Absent: diastolic murmur, gallop, rubs, systolic murmur - GI/Abdominal GI/Abdominal exam: Present: normal bowel sounds, soft, no peritoneal signs. Absent: distended, tenderness - Extremities Exam Extremities exam: Present: warm, radial pulses palpable and symetrical. Absent : calf tenderness, cyanotic, pedal edema - Neurological Exam Neurological exam: Present: CN II-XII intact, oriented X3, no focal deficits. Absent: pronater drift, facial droop, speech deficit - Skin Skin exam: Present: dry, intact Internal Medicine: Result - Labs CBC & Chem 7: 06/24/17 01:45 06/24/17 01:45 Labs: Short CBC 06/24/17 Range/Units 01:45 WBC 14.8 H (4.3-11.1) K/mcL Hgb 9.3 L (11.5-15.4) g/dL Hct 29.4 L (35.3-44.9) % Plt Count 209 (140-400) K/mcL Neutrophils # 13.9 H (1.6-8.9) K/mcL BMP 06/24/17 06/24/17 01:45 01:45 Sodium 142 142 Potassium 3.9 3.9 Chloride 113 H 114 H Carbon Dioxide 22 21 BUN 38 H 39 H Creatinine 1.21 H 1.21 H Glucose 139 H 138 H Calcium 6.7 L 6.7 L Liver Function 06/24/17 06/24/17 Range/Units 01:45 01:45 Total Bilirubin 0.3 0.3 (0.2-1.2) mg/dL Direct Bilirubin 0.2 (0.0-0.5) mg/dL AST 33 34 (5-34) Units/L ALT 22 22 (0-55) Units/L Alkaline Phosphatase 69 69 (38-126) Units/L Albumin 2.6 L 2.6 L (3.5-5.0) g/dL - ABG Interpretation ABG results: PT/INR, D-dimer PT 13.9 Seconds (9.4-12.1) H 06/23/17 02:52 - Impressions Impressions Chest X-Ray 06/23/17 02:48 IMPRESSION: Bibasilar opacities which may reflect pneumonia or a combination of pleural effusion and partial lower lobe atelectasis. D/ / 06/23/2017 07:04:40 Jeison Corey MD / [facility] Interpreting Provider: Jeison Corey MD - VTE Documentation of Mechanical Device: Intermittent pneumatic compression device Consult Discharge Plan - Plan Referrals: Mazin Rios [Other] - 07/05/17 10:30 am Oliverio Jenkins DO [Partnered Physician] -
--- NOTE | 2017-06-24 15:10 | General Surgery Progress Note ---
Date of Encounter: 06/24/17 Time of Encounter: 15:09 - Assessment and Plan (1) Gallstone pancreatitis Current Visit: Yes Status: Acute NPO except swabs IV fluids @ 125 cc/hr Supportive care Pain is well controlled Serial abdominal exams Lipase - 108 today LFTs normal Encouraged ICS Consent obtained Discussed the risks, benefits, alternatives and outcomes with the patient and she is in agreement to proceed with a laproscopic cholecystectomy with Dr. Jenkins in the next 24 hours. Holding Heparin at 2200 tonight. (2) Abdominal pain Current Visit: Yes Status: Acute See above. Qualifiers: Abdominal location: epigastric Qualified Code(s): R10.13 - Epigastric pain (3) Leukocytosis Current Visit: Yes Status: Acute WBC trending 17.4 > 14.8. On Flagyl and Levaquin. Recheck in am. Qualifiers: Leukocytosis type: unspecified Qualified Code(s): D72.829 - Elevated white blood cell count, unspecified (4) Atrial fibrillation with RVR Current Visit: Yes Status: Acute Sinus rhythm today. Off Cardizem drip early this morning. Heparin drip for anticoagulation. Management per medicine. ECHO performed on 05/24/17 demonstrated EF 65% with mild LVH (5) Acute kidney injury Current Visit: No Status: Acute Continue IV Fluids. Cr improving from 1.67 to 1.21 (6) HTN (hypertension) Current Visit: No Status: Chronic Well controlled at this time. Medicine managing. Qualifiers: Hypertension type: essential hypertension Qualified Code(s): I10 - Essential (primary) hypertension (7) GERD (gastroesophageal reflux disease) Current Visit: Yes Status: Chronic PPI therapy. Well controlled. Qualifiers: Esophagitis presence: esophagitis presence not specified Qualified Code(s) : K21.9 - Gastro-esophageal reflux disease without esophagitis (8) Diabetes Current Visit: Yes Status: Acute Defer to medicine. 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 Continue bronchodilators. Management per medicine. Qualifiers: COPD type: emphysema Emphysema type: other Qualified Code(s): J43.8 - Other emphysema (10) Polymyalgia rheumatica Current Visit: No Status: Chronic Home dose of 5mg Prednisone held. Medicine started on hydrocortisone 100 mg IV every 8 hours (11) DVT prophylaxis Current Visit: No Status: Acute Heparin Drip Subjective Patient reports: feels better, still having pain, pain is less, voiding w/o difficulty, no flatus, no bowel movement, afebrile, other (Patient is still requesting water but the swabs are getting her through. Nursing states she went of the Cardizem drip about 2am and HR is in 70s. On lopressor now. ) Objective Vital Signs - Last 8 Hours Temp Pulse Resp BP Pulse Ox 06/24/17 11:38 82 06/24/17 11:34 97.9 F 92 18 154/66 92 06/24/17 07:45 97.5 F L 77 18 145/73 93 06/24/17 07:35 77 Intake and Output 06/23/17 06/24/17 06/24/17 23:59 07:59 15:59 Intake Total 1144.7 / 1144.7 1478 / 1478 50 / 50 Output Total 75 / 75 325 / 325 500 / 500 Balance 1069.7 / 1069.7 1153 / 1153 -450 / -450 Intake: IV Fluids 1144.7 / 1144.7 1478 / 1478 50 / 50 0.9 % Sodium Chloride 1, 1000 / 1000 1000 / 1000 000 ML @ 125 mls/hr IVC . Q8H [facility] Rx#:[id number] Cardizem 125 MG In 44.7 / 44.7 20 / 20 Dextrose 5% 100 ML @ 10 MG/HR 10 mls/hr IVC . [id number] [facility] Rx#: [id number] Heparin 25,000 UNIT/500 0 / 0 358 / 358 50 / 50 ML D5W 25,000 unit In 500 ml @ 14 UNIT/KG/HR 22. 904 mls/hr IVC .[id number] [facility] Rx#:[id number] Flagyl Premix 500 MG/100 100 / 100 100 / 100 ML 500 mg In 100 ml @ 100 mls/hr IVPB Q8HR [facility] Rx# :[id number] Oral 0 / 0 Output: Urine 325 / 325 500 / 500 Urine/Stool Mix 75 / 75 Other: Meal npo npo Percent of Meal Consumed 0% Stool Size Small Moderate Stool Consistency loose soft Stool Color Brown Brown # Bowel Movements 1 Weight 81.8 kg Blood Glucose* 116 132 Patient Weight 06/24/17 23:59 Weight 81.8 kg - General physical appearance no distress, obese - Eyes normal ocular movement - ENT atraumatic, normocephalic - Neck Neck exam: trachea midline - Respiratory normal expansion, normal respiratory effort, clear to auscultation - Cardiovascular Cardiovascular exam: Present: RRR, no murmurs/rubs/gallops - Abdomen Abdomen: Present: bowel sounds present, soft, tender. Absent: distended, guarding, rebound Abdominal Tenderness: epigastic - Integumentary other (warm and dry) - Neurologic CN 2-12 grossly intact - Psychiatric oriented to time, oriented to person, oriented to place, speech is normal, memory intact - Labs 06/24/17 01:45 06/24/17 01:45 Short CBC 06/24/17 Range/Units 01:45 WBC 14.8 H (4.3-11.1) K/mcL Hgb 9.3 L (11.5-15.4) g/dL Hct 29.4 L (35.3-44.9) % Plt Count 209 (140-400) K/mcL Neutrophils # 13.9 H (1.6-8.9) K/mcL BMP 06/24/17 06/24/17 Range/Units 01:45 01:45 Sodium 142 142 (136-145) mEq/L Potassium 3.9 3.9 (3.5-4.5) mEq/L Chloride 114 H 113 H (98-109) mEq/L Carbon Dioxide 21 22 (19-29) mEq/L BUN 39 H 38 H (7-20) mg/dL Creatinine 1.21 H 1.21 H (0.57-1.11) mg/dL Glucose 138 H 139 H (70-99) mg/dL Calcium 6.7 L 6.7 L (8.6-10.8) mg/dL Liver Function 06/24/17 06/24/17 Range/Units 01:45 01:45 Total Bilirubin 0.3 0.3 (0.2-1.2) mg/dL Direct Bilirubin 0.2 (0.0-0.5) mg/dL AST 34 33 (5-34) Units/L ALT 22 22 (0-55) Units/L Alkaline Phosphatase 69 69 (38-126) Units/L Albumin 2.6 L 2.6 L (3.5-5.0) g/dL Vital Signs Temp Pulse Resp BP Pulse Ox 06/24/17 11:38 82 06/24/17 11:34 97.9 F 92 18 154/66 92 06/24/17 07:45 97.5 F L 77 18 145/73 93 06/24/17 07:35 77 06/24/17 04:44 97.7 F 83 18 148/66 93 06/24/17 00:11 97.9 F 92 20 129/55 90 06/23/17 23:00 82 123/56 06/23/17 22:00 90 132/60 06/23/17 21:00 84 125/55 06/23/17 20:00 87 130/59 06/23/17 19:22 98.4 F 87 18 125/56 94 06/23/17 18:00 90 133/55 06/23/17 17:36 18 90 06/23/17 17:30 106 170/59 06/23/17 17:15 98 138/87 06/23/17 17:00 79 106/57 06/23/17 16:45 77 102/56 06/23/17 16:30 162 127/81 06/23/17 16:25 97.8 F 160 18 121/72 90 06/23/17 16:15 162 75/49 06/23/17 16:00 151 105/64 06/23/17 15:45 143 113/59 06/23/17 15:30 125 120/49 06/23/17 15:15 123 Intake and Output 06/23/17 06/24/17 06/24/17 23:59 07:59 15:59 Intake Total 1144.7 / 1144.7 1478 / 1478 50 / 50 Output Total 75 / 75 325 / 325 500 / 500 Balance 1069.7 / 1069.7 1153 / 1153 -450 / -450 Intake: IV Fluids 1144.7 / 1144.7 1478 / 1478 50 / 50 0.9 % Sodium Chloride 1, 1000 / 1000 1000 / 1000 000 ML @ 125 mls/hr IVC . Q8H [facility] Rx#:[id number] Cardizem 125 MG In 44.7 / 44.7 20 / 20 Dextrose 5% 100 ML @ 10 MG/HR 10 mls/hr IVC . [id number] [facility] Rx#: [id number] Heparin 25,000 UNIT/500 0 / 0 358 / 358 50 / 50 ML D5W 25,000 unit In 500 ml @ 14 UNIT/KG/HR 22. 904 mls/hr IVC .[id number] [facility] Rx#:[id number] Flagyl Premix 500 MG/100 100 / 100 100 / 100 ML 500 mg In 100 ml @ 100 mls/hr IVPB Q8HR [facility] Rx# :[id number] Oral 0 / 0 Output: Urine 325 / 325 500 / 500 Urine/Stool Mix 75 / 75 Other: Meal npo npo Percent of Meal Consumed 0% Stool Size Small Moderate Stool Consistency loose soft Stool Color Brown Brown # Bowel Movements 1 Weight 81.8 kg Blood Glucose* 116 132 Patient Weight 06/24/17 23:59 Weight 81.8 kg - VTE Documentation of Mechanical Device: Intermittent pneumatic compression device Consult Discharge Plan - Plan Referrals: Mazin Rios [Other] - 07/05/17 10:30 am Oliverio Jenkins DO [Partnered Physician] -
[2017-06-24] MEDS: *HR* LORazepam 2 MG/ML VIAL IVP PRN (22:02)
[2017-06-25] MEDS: Insulin LISPRO 300 UNITS/3 ML VIAL SQ SCH ×4 (00:19→17:40)
[2017-06-25 00:59] LABS: Basophils % 0.1 %; Hematocrit 30.8 % (35.3-44.9); Hemoglobin 9.6 g/dL (11.5-15.4); Immature Granulocytes % 0.8 % (0-4); Lymphocytes # 0.3 K/mcL (0.6-4.6); Lymphocytes % 1.7 %; Mean Corpuscular HGB Conc 31.2 g/dL (31.6-35.5); Mean Corpuscular Hemoglobin 29.6 pg (28.0-33.3); Mean Corpuscular Volume 95.1 fL (83.0-100.0); Mean Platelet Volume 9.6 fL (9.4-12.4); Monocytes # 0.8 K/mcL (0.0-1.3); Monocytes % 4.9 %; Neutrophils # 14.2 K/mcL (1.6-8.9); Platelet Count 209 K/mcL (140-400); Red Blood Count 3.24 M/mcL (3.82-4.97); Red Cell Distribution Width 14.5 % (11.5-14.5); Segmented Neutrophils % 92.5 %
[2017-06-25 01:12] LABS: BUN/Creatinine Ratio 34 (6-26); Blood Urea Nitrogen 29 mg/dL (7-20); Calcium 6.7 mg/dL (8.6-10.8); Carbon Dioxide 18 mEq/L (19-29); Chloride 119 mEq/L (98-109); Glucose 166 mg/dL (70-99); Osmolality,Calculated 316 (280-300); Potassium 3.7 mEq/L (3.5-4.5); Sodium 148 mEq/L (136-145); eGFR For African Americans > 60 (> 60); eGFR For Non-African Americans > 60 (> 60)
[2017-06-25] MEDS: 0.9 % Sodium Chloride 1,000 ML IVC SCH ×2 (02:30→07:47)
[2017-06-25] MEDS: *HR* Metoprolol 5 MG/5 ML VIAL IVP SCH ×5 (06:13→23:31)
--- NOTE | 2017-06-25 07:30 | Cardiology Progress Note ---
Date of Encounter: 06/25/17 Time of Encounter: 07:30 Assessment and Plan (1) Gallstone pancreatitis Current Visit: Yes Status: Acute Per cardiology: Gallstone pancreatitis as per CT from [facility]. Management per surgical services-- pending surgical intervention today. (2) Afib Current Visit: Yes Status: Acute Per Cardiology: Atrial fibrillation with RVR in the setting of pancreatitis. Patient in sinus rhythm in the 80s. Monitor shows average heart rate the past 12 hours 91-- SR. On IV Lopressor 5mg q6hrs. Ideally, would initiate PO medications, however remains NPO d/t pancreatitis and pending surgery. Resume Cardizem drip if needed. Recommend PO medications when able. TSH and magnesium stable. Regarding long-term anticoagulation, Chads 2vasc score 5 (age, gender, HTN, DM) . 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 Patient agreeable for care home anticoagulation, however unable to give oral medications at this time due to pancreatits. IV heparin drip to be on hold for surgery-- resume when able. Patient aware of increased stroke risk. Gupta check completed for Eliquis 5mg PO BID (roughly $78 per month)-- agreeable to proceed when able to take PO medications. Qualifiers: Atrial fibrillation type: paroxysmal Qualified Code(s): I48.0 - Paroxysmal atrial fibrillation (3) Hypomagnesemia Current Visit: No Status: Resolved Per Cardiology: Resolved. (4) Elevated troponin Current Visit: No Status: Acute Per cardiology: Troponin 0.17 in the setting of atrial fibrillation RVR and pancreatitis. Denies chest pain. Nuclear stress test 10/2014 negative for ischemia or infarct. Echo showed EF preserved 65%, no segmental wall motion abnormalities. Do not suspect NSTEMI, suspect demand ischemia related to a.fib RVR, XANDER, and pancreatitis. (5) Volume overload Current Visit: Yes Status: Acute Per Cardiology: Seen this am with increased SOB, edema, requiring NC O2. Net I&O +5,864.7ml during stay. Discussed with Dr. Fragoso, will check CXR, stop IVF for now, give Lasix 40mg x 1 IV now. Echo showed EF 65%, indeterminate diastolic dysfxn. XANDER resolved. Qualifiers: Hypervolemia type: unspecified Qualified Code(s): E87.70 - Fluid overload, unspecified (6) Acute kidney injury Current Visit: No Status: Acute Per cardiology: XANDER on admission with creatinine of 1.67. Improved. Baseline creatinine 0.6- 0.8. Management per primary service. Monitor closely with diuresis. Discussion w patient/family: The assessment and plan as outlined above was discussed with the patient who expressed understanding and agreement. All questions were answered. Thank you for involving us in the care of your patient. Please call with any questions. Subjective Principal diagnosis: Afib RVR Interval history: Patient denies any chest pain or palpitations. Denies any active bleeding or blood loss. Reports some mild right upper quadrant abdominal discomfort to palpation. Reports difficulty sleeping last night-- per RN received ativan this am (A&Ox3, groggy). Reports SOB this am. Objective Vital Signs, Last 4 Hours Temp Pulse Resp BP Pulse Ox 06/25/17 05:25 97.2 F L 94 18 169/79 96 06/25/17 04:44 86 General: Conversant HEENT: Atraumatic, Normocephaly Cardiac: Reg Rate and Rhythm, Normal S1 and S2, No Murmur Lungs: Other (Inspiratory wheezes noted, mild resp distress noted at rest, on NC O2) Neuro: Alert and responsive, No focal deficits noted, Other (somewhat somnolent) Abdomen: Soft, Other (slight abdominal tenderness) Skin: No rashes noted on visualized skin Musculoskeletal: No Chest Wall Tenderness Extremities: Other (+1 pitting edema bilateral LE) Results 06/25/17 00:49 06/25/17 00:49 Lab Results Laboratory Tests 06/25/17 06/25/17 00:49 00:49 Hgb 9.6 L Hct 30.8 L Creatinine 0.85 Est GFR (Non-Af Amer) > 60 Magnesium 2.0 Active Medications Albuterol/Ipratropium (Duoneb) 3 ml IH [id number] PRN PRN Reason: Shortness Of Breath/Wheezing Stop: 12/23/17 01:30 Last Admin: 06/23/17 17:33 Dose: 3 ml Dextrose/Water (Dextrose 50% (Syg)) 25 ml IVP AD PRN PRN Reason: Hypoglycemia Stop: 12/23/17 14:24 Glucagon (Glucagen) 1 mg IM ONCE PRN PRN Reason: Hypoglycemia Stop: 12/23/17 14:24 Glucose (Gluctose) 15 gm PO ONCE PRN PRN Reason: Hypoglycemia Stop: 12/23/17 14:24 Glucose (Gluctose) 30 gm PO ONCE PRN PRN Reason: Hypoglycemia Stop: 12/23/17 14:24 Heparin Sodium (Porcine) (Heparin) 5,700 unit 70 unit/kg (5700 unit) IVP Q6HR PRN PRN Reason: SEE COMMENTS Stop: 12/23/17 03:47 Last Admin: 06/23/17 04:03 Dose: 5,700 unit Heparin Sodium (Porcine) (Heparin) 2,900 unit 35 unit/kg (2900 unit) IVP Q6H PRN PRN Reason: SEE COMMENTS Stop: 12/23/17 03:47 Last Admin: 06/23/17 19:53 Dose: 2,900 unit Hydrocortisone Sodium Succinate (Solu-Cortef) 100 mg IVP Q8HR MOY Stop: 12/23/17 16:01 Last Admin: 06/24/17 23:21 Dose: 100 mg Sodium Chloride (0.9 % Sodium Chloride) 1,000 mls @ 125 mls/hr IVC .Q8H MOY Stop: 12/22/17 23:46 Last Admin: 06/25/17 02:30 Dose: 125 mls/hr Levofloxacin/Dextrose (Levaquin Premix 500mg/100ml) 500 mg in 100 mls @ 100 mls /hr IVPB Q48H MOY PRN Reason: Protocol Stop: 12/23/17 09:01 Last Infusion: 06/23/17 14:06 Dose: Infused Metronidazole (Flagyl Premix 500 Mg/100 Ml) 500 mg in 100 mls @ 100 mls/hr IVPB Q8HR MOY Stop: 12/23/17 00:01 Last Admin: 06/24/17 23:21 Dose: 100 mls/hr Heparin Sodium/Dextrose (Heparin 25,000 Unit/500 Ml D5w) 25,000 unit in 500 mls @ 22.904 mls/hr IVC .[id number] MOY; 14 UNIT/KG/HR PRN Reason: Protocol Stop: 06/25/17 10:00 Last Titration: 06/24/17 14:35 Dose: 12.83 unit/kg/hr, 21 mls/hr Dextrose (Dextrose 5%) 1,000 mls @ 100 mls/hr IVC .Q10H PRN PRN Reason: HYPOGLYCEMIA Stop: 12/23/17 14:24 Diltiazem HCl 125 mg/ Dextrose 125 mls @ 10 mls/hr IVC .[id number] MOY; 10 MG/HR PRN Reason: Protocol Stop: 12/23/17 15:01 Last Admin: 06/25/17 04:43 Dose: Not Given Insulin Human Lispro (Humalog) 0 units SQ Q6HR MOY PRN Reason: Protocol Stop: 12/23/17 18:01 Last Admin: 06/25/17 05:37 Dose: Not Given Lorazepam (Ativan) 0.5 mg IVP Q6HR PRN PRN Reason: Insomnia Stop: 12/22/17 23:57 Last Admin: 06/24/17 22:02 Dose: 0.5 mg Metoprolol Tartrate (Lopressor) 5 mg IVP Q6HR MOY Stop: 12/23/17 06:01 Last Admin: 06/25/17 06:13 Dose: 5 mg Morphine Sulfate (Morphine Sulfate) 1 mg IVP Q6HR PRN PRN Reason: Severe Pain Stop: 12/23/17 13:36 Naloxone HCl (Narcan) 0.4 mg IVP Q2MIN PRN PRN Reason: SEE COMMENTS Stop: 12/23/17 13:48 Ondansetron HCl (Zofran) 4 mg IVP Q6HR PRN; Protocol PRN Reason: Nausea And Vomiting Stop: 12/22/17 23:52 Last Admin: 06/23/17 16:35 Dose: 4 mg Pantoprazole Sodium (Protonix) 40 mg IVP DAILY [facility] Stop: 12/23/17 09:01 Last Admin: 06/24/17 07:18 Dose: 40 mg - Imaging and Cardiology Chest Xray: pending - EKG Interpretation EKG results cardiology: other (12 hr tele shows avg HR 91, currently SR 80) - VTE Documentation of Mechanical Device: Intermittent pneumatic compression device Consult Discharge Plan - Plan Referrals: Mazin Rios [Other] - 07/05/17 10:30 am Oliverio Jenkins DO [Partnered Physician] -
[2017-06-25] MEDS: *HR* LORazepam 2 MG/ML VIAL IVP PRN (07:46)
[2017-06-25] MEDS: Levofloxacin 500 MG/100 ML 500 MG/100 ML BAG IVPB SCH (07:47)
[2017-06-25] MEDS: MetroNIDAZOLE 500 MG/100 ML 500 MG/100 ML BAG IVPB SCH ×3 (07:47→23:30)
[2017-06-25] MEDS: Pantoprazole 40 MG VIAL IVP SCH (07:48)
[2017-06-25] MEDS: Hydrocortisone Sodium Succ 100 MG/2 ML VIAL IVP SCH ×3 (07:48→23:31)
[2017-06-25] MEDS: Heparin 25,000 UNIT/500 ML D5W 25,000 UNIT/500 ML MLS IVC SCH (07:50)
[2017-06-25] MEDS ORDERED: Furosemide 40 MG/4 ML VIAL IVP ONE (08:55)
--- NOTE | 2017-06-25 11:02 | Anesthesia Evaluation PreOp ---
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 HX Other Medical History: Renal (acute kidney injury), Diabetes Type II, GERD ( hiatal Hernia), Other (polymyalgia rheumatica) Anesthesia History: No Prior Anesthetic Complications, Past Anesthesia Alcohol Use: none Drug use: none Medications and Allergies Albuterol Sulfate [Proair Hfa] 2 puff IH Q4H PRN 07/05/16 [History] Ascorbic Acid [Vitamin C] 500 mg PO DAILY 07/05/16 [History] Aspirin Enteric Coated [Aspirin EC] 81 mg PO DAILY 07/05/16 [History] Biotin 1 mg PO DAILY 07/05/16 [History] Cetirizine HCl [Zyrtec] 10 mg PO DAILY 07/05/16 [History] Citalopram Hydrobromide [Citalopram HBr] 10 mg PO DAILY 07/05/16 [History] Diclofenac Sodium [Voltaren] 1 appl TP QID 07/05/16 [History] GuaiFENesin/Dextromethorphan [Mucinex Dm] 1 tab PO Q4H PRN 07/05/16 [History] Ibuprofen [Motrin] 800 mg PO Q8HR PRN 07/05/16 [History] Losartan Potassium [Cozaar] 50 mg PO DAILY 07/05/16 [History] Multivitamin [Multi-Day Vitamins] 1 tab PO DAILY 07/05/16 [History] Nortriptyline [Pamelor] 25 mg PO DAILY 07/05/16 [History] Omeprazole [PriLOSEC] 40 mg PO DAILY 07/05/16 [History] Budesonide/Formoterol 160/4.5 [Symbicort 160/4.5] 2 puff IH BIDR #1 inhaler 08/14 [Rx] LORazepam [Ativan] 0.5 mg PO HS #30 tablet 08/30/16 [Rx] Ipratropium/Albuterol Neb [Duoneb] 3 ml IH QID PRN 02/07/17 [History] Lactobacillus [Culturelle] 2 cap PO DAILY 02/07/17 [History] Metoprolol Tartrate [Lopressor] 75 mg PO BID 02/07/17 [History] Acetaminophen [Tylenol] 650 mg PO Q6HR PRN 06/23/17 [History] Metformin HCl [Metformin HCl ER] 500 mg PO DAILY 06/23/17 [History] Montelukast [Singulair] 10 mg PO DAILY 06/23/17 [History] Oxygen 2 l NS AD 06/23/17 [History] Ranitidine HCl [Zantac] 150 mg PO HS 06/23/17 [History] Allergies Penicillins Allergy (Severe, Verified 07/05/16 17:36) Swelling of Lip/Tongue/Throat Tetanus Vaccines and Toxoid [Tetanus Vaccines & Toxoid] Allergy (Verified 17:36) Confusion acetaminophen [From Darvocet-N] Adverse Reaction (Verified 07/05/16 17:36) Confusion propoxyphene [From Darvon] Adverse Reaction (Verified 07/05/16 17:36) Confusion - Meds/Allergy Pre-op Review Medications Reviewed: Yes Allergies Reviewed: Yes Beta Blockers on Current Med List: Yes If Beta Blockers taken, Date/Time (Last Dose taken): 11/25/2017 at 0931 Anesthesia Results - Labs 06/25/17 00:49 06/25/17 00:49 Laboratory Tests 06/23/17 06/24/17 02:52 13:57 PT 13.9 H INR 1.3 APTT 60.3 H - Imaging EKG: report reviewed (06/23/2017 ATRIAL FIBRILLATION WITH RAPID VENTRICULAR RESPONSE AND ABERRANT CONDUCTION OR PVCS MODERATE VOLTAGE CRITERIA FOR LVH) Additional studies: 06/23/2017 Echo Impressions: LVEF 65%. Mild to moderate concentric hypertrophy of the left ventricle. Indeterminate left ventricular diastolic function. RV is not well evaluated. Mild tricuspid regurgitation. Mild pulmonary hypertension. 01/07/2015 Echo Impressions: LVEF 65-70%. Mild concentric left ventricular hypertrophy. Mild left ventricular diastolic dysfunction. Normal right ventricular structure and function. No evidence of PFO with agitated saline contrast. Trace tricuspid regurgitation. Mild pulmonary hypertension. Estimated RVSP is 41 mmHg. 11/02/2014 Stress Impression: Pharmacologic stress ECG is negative for ischemia at level of heart rate achieved. No arrhythmias were noted during stress. Occasional PVCs in recovery. Patient had no chest pain during stress. Normal hemodynamic responses to pharmacologic stress. Gated EF > 70%. Normal wall motion. This study was negative for ischemia or infarct. Clinical correlation suggested. Anesthesia Exam Vital Signs/O2 Sat/Glucose, Most Recent Temp Pulse Resp BP Pulse Ox 97.6 F 74 18 159/63 97 06/25/17 07:23 06/25/17 07:23 06/25/17 07:23 06/25/17 07:23 06/25/17 07:23 Blood Glucose* 95 Height: 5'/1.52 m Weight: 184 lbs/83.57 kg NPO (# of Hours): 8 Pain Scale: 0 Pain Scale Used: Numeric (1 - 10) - HEENT Pupil (Motor): EOMI Mallampati: II Teeth: Edentulous Oral Opening: Greater than 3 - METAL LEAF LAYER LOC: Oriented METAL LEAF LAYER Motor: Normal RUE, Normal RLE, Normal LLE, Normal Face, Deficit LUE METAL LEAF LAYER Sensory: Normal: RUE, LUE, RLE, LLE, Face - Cardiac Rhythm: Regular Murmur: None - Pulmonary Breath Sounds: bilateral Clear Respiratory Effort: Symmetrical Anesthesia Assess/Plan ASA Score: 4 Modified [place] Scale for Level of Consciousness: Cooperative, oriented, and tranquil Anesthetic Plan: General Monitoring Plan: Standard Monitors Recovery Plan: PACU
[2017-06-25] MEDS ORDERED: *HR* Propofol 200 MG/20 ML VIAL IVP ONE (12:19)
[2017-06-25] MEDS ORDERED: Dexamethasone 4 MG/ML VIAL ONE (12:19)
[2017-06-25] MEDS ORDERED: *HR* Rocuronium Bromide 50 MG/5 ML VIAL ONE (12:19)
[2017-06-25] MEDS ORDERED: Albuterol 2.5 MG/3 ML NEBULIZER IH ONE (12:19)
[2017-06-25] MEDS ORDERED: Ondansetron 4 MG/2 ML VIAL ONE (12:19)
[2017-06-25] MEDS ORDERED: Lidocaine -MPF 2% 2 ML VIAL ONE (12:19)
[2017-06-25] MEDS ORDERED: *HR* FentaNYL (PF) 100 MCG/2 ML VIAL ONE (12:19)
[2017-06-25] MEDS ORDERED: Albuterol 2.5 MG/3 ML NEBULIZER ONE (12:20)
[2017-06-25] MEDS ORDERED: Albuterol 2.5 MG/3 ML NEBULIZER IH PRN ×2 (13:42→15:11)
[2017-06-25] MEDS ORDERED: *HR* HYDROmorphone (PF) 1 MG/ML SYRINGE IVP PRN ×2 (13:42→15:11)
[2017-06-25] MEDS ORDERED: Ondansetron 4 MG/2 ML VIAL IVP PRN ×3 (13:42→15:11)
[2017-06-25] MEDS ORDERED: *HR* Metoprolol 5 MG/5 ML VIAL IVP PRN ×2 (13:42→15:11)
--- NOTE | 2017-06-25 13:53 | Operative Note ---
Date of procedure: 06/25/17 Pre-op diagnosis: Gallstone pancreatitis Post-op diagnosis: same Procedure: Laparoscopic cholecystectomy with cholangiogram Anesthesia: MADYSON Surgeon: Oliverio Jenkins Estimated blood loss (cc): 5 Specimen: GB Condition: stable Disposition: same day Procedure in Detail: After informed consent this patient was taken the operating room placed supine position. After adequate sedation anesthesia the abdomen was prepped and draped. A proper timeout was performed. Two towel clamps are placed at the umbilicus and a Veres needle was inserted into the abdomen. A 5 mm incision was made at the umbilicus. A 12 mm incision was made in the subxiphoid region. Two 5 mm incisions were made in the right upper quadrant that were 4 finger breadths and 6 finger breadths below the costal margin. The gallbladder was identified, retracted anteriorly and cephalad, and the infundibulum was skeletonized. The cystic duct was easily identified and was dissected free. A ductotomy was created in the cystic duct. A taut catheter was placed within the cystic duct and clipped. A cholangiogram was performed. Contrast filled the cystic duct, common hepatic duct, hepatic radicles, and the distal common bile duct. There was flow of contrast into the duodenum. Once this was confirmed the clippers removed, the taut catheter was removed as well, and the cystic duct was clipped distally. The cystic duct was then transected with scissors. The gallbladder was resected off the liver surface. There was excellent hemostasis. The gallbladder was then retrieved through the 12 mm cannula site. At this point the abdomen was suctioned dry and the pneumoperitoneum was then evacuated. All ports were removed. The 12 mm cannula site was closed with an 0 Vicryl suture in [id number] fashion. The skin was closed with 4-0 Vicryl suture. Dermabond was placed as well. All instrument counts and needle counts are correct in the operation. She tolerated the procedure well and was transferred to the PACU in stable condition.
[2017-06-25] MEDS ORDERED: 0.9 % Sodium Chloride 500 ML ONE (14:05)
[2017-06-25] MEDS ORDERED: SODIUM CHLORIDE 0.9% IVPB ONE (14:28)
[2017-06-25] MEDS ORDERED: FUROSEMIDE IVPB ONE (14:28)
[2017-06-25] MEDS ORDERED: Furosemide 20 MG/2 ML VIAL IVP ONE (14:28)
[2017-06-25] MEDS ORDERED: Ipratropium/Albuterol Neb 3 ML IH PRN (15:11)
[2017-06-25] MEDS ORDERED: *HR* Dextrose 50 % in Water (Syg) 50 ML SYRINGE IVP PRN (15:11)
[2017-06-25] MEDS ORDERED: D5% in Water 1,000 ML IVC PRN (15:11)
[2017-06-25] MEDS ORDERED: *HR* Heparin 5,000 UNIT/ML VIAL IVP PRN ×2 (15:11)
[2017-06-25] MEDS ORDERED: Naloxone 0.4 MG/ML INJ IVP PRN (15:11)
[2017-06-25] MEDS ORDERED: Dextrose Gel 15 GM PO PRN ×2 (15:11)
--- NOTE | 2017-06-25 15:12 | Anesthesia Evaluation Post Op ---
Date of Encounter: 06/25/17 Time of Encounter: 15:10 - Vital Signs Vital Signs: Vital Signs/O2 Sat, Most Current Temp Pulse Resp BP Pulse Ox 98.0 F 86 26 147/70 85 06/25/17 14:34 06/25/17 14:44 06/25/17 14:44 06/25/17 14:44 06/25/17 14:46 - Lungs Lungs: Clear Ascult./Percussion - Airway Airway: Non-obstructed (on CPAP) - Cardiovascular Regular Rate - Mental Status Mental Status: Asleep with brisk response to light stimulation - Pain Pain Scale: 0 Pain Scale used: Numeric (1 - 10) - Nausea Vomiting Nausea Vomiting: Not Present - Hydration Hydration: Ice chips, Has not voided - Discharge PostOp Status: Transfer Patient to floor
[2017-06-25] MEDS: *HR* Morphine 2 MG/ML SYRINGE IVP PRN ×2 (17:11→23:31)
--- NOTE | 2017-06-25 17:27 | Internal Med Progress Note ---
Date of Encounter: 06/25/17 Time of Encounter: 10:00 - Assessment and plan (1) Diabetes Current Visit: Yes Status: Acute Assessment and plan: Patient takes metformin at home. Will hold metformin now and cover patient with sliding scale. Glucose level is stable. Qualifiers: Diabetes mellitus type: type 2 Diabetes mellitus complication status: without complication Diabetes mellitus shelter insulin use: without shelter use Qualified Code(s): E11.9 - Type 2 diabetes mellitus without complications (2) DVT prophylaxis Current Visit: No Status: Acute Assessment and plan: Hold the heparin drip because surgery, may resume if there are no bleeding. On EPCD (3) Dehydration Current Visit: No Status: Acute Assessment and plan: Continue low rate IV fluid as patient is still nothing by mouth. (4) Acute kidney injury Current Visit: No Status: Acute Assessment and plan: Probably due to nausea vomiting, dehydration. Continue IV fluid. Follow-up renal function. Renal function has improved. (5) Hypomagnesemia Current Visit: No Status: Resolved Assessment and plan: Has been supplement already. Repeat magnesium level 2.0 (6) Gallstone pancreatitis Current Visit: Yes Status: Acute Assessment and plan: Management per surgical team. Patient is on nothing by mouth, IV fluid, and the pain medication. She is also on antibiotics. - Had LC surgery today. (7) COPD (chronic obstructive pulmonary disease) Current Visit: Yes Status: Acute Assessment and plan: Stable, no wheezing. Continue nasal cannula oxygen to maintain SPO2 around 90% . Patient uses 3 L oxygen at home. Now need 8-10 L, hypoxia probably due to ALI caused by acute pancreatitis on the basis of patient's COPD. No signs of CO2 retention as bicarbonate level 21. BiPAP as needed. Qualifiers: COPD type: emphysema Emphysema type: other Qualified Code(s): J43.8 - Other emphysema (8) Atrial fibrillation with RVR Current Visit: Yes Status: Acute Assessment and plan: Now heart rhythm change back to A. fib. Continue Cardizem drip as patient is nothing by mouth cannot take by mouth Cardizem. Metoprolol IV as needed (9) Polymyalgia rheumatica Current Visit: No Status: Chronic Assessment and plan: Patient is on chronic steroid, prednisone 5mg daily. She need stress dose because of acute pancreatitis/surgery. Will start hydrocortisone 100 mg IV every 8 hours - Time Spent With Patient 25 - 35 minutes - Subjective Interval history: Patient is a 76-year-old female transferred from [facility] for acute pancreatitis, gallstone. Patient is planned for surgery by our surgical team. However, patient did develop A Fib with rapid ventricular response. I saw and examined patient today. She is still in mild acute pain. Feels better. Today HR 100s still A Fib. Had laparoscopic cholecystectomy today. Has minimal pain, on pain medication. On Cardizem drip now. - Constitutional Vitals: Temp Pulse Resp BP Pulse Ox 97.6 F 73 20 143/67 95 06/25/17 15:29 06/25/17 15:29 06/25/17 15:29 06/25/17 15:29 06/25/17 15:29 General appearance: Present: mild distress, A&O X 3, answers questions appropriately - Head Head exam: Present: atraumatic, normocephalic - Eye Eye exam: Present: PERRL, conjuntiva pink, sclera anicteric Pupils: Present: PERRL - Neck Neck exam general surgery: Present: supple, trachea midline. Absent: lymphadenopathy - Respiratory Respiratory exam: Present: CTAB. Absent: accessory muscle use, rales, rhonchi, wheezes - Cardiovascular Cardiovascular exam: Present: RRR, +S1, +S2. Absent: diastolic murmur, gallop, rubs, systolic murmur - GI/Abdominal GI/Abdominal exam: Present: normal bowel sounds, soft, tenderness (Mild tenderness), no peritoneal signs. Absent: distended - Extremities Exam Extremities exam: Present: warm, radial pulses palpable and symetrical. Absent : calf tenderness, cyanotic, pedal edema - Neurological Exam Neurological exam: Present: CN II-XII intact, oriented X3, no focal deficits. Absent: pronater drift, facial droop, speech deficit - Skin Skin exam: Present: dry, intact Internal Medicine: Result - Labs CBC & Chem 7: 06/25/17 00:49 06/25/17 00:49 Labs: Short CBC 06/25/17 Range/Units 00:49 WBC 15.4 H (4.3-11.1) K/mcL Hgb 9.6 L (11.5-15.4) g/dL Hct 30.8 L (35.3-44.9) % Plt Count 209 (140-400) K/mcL Neutrophils # 14.2 H (1.6-8.9) K/mcL BMP 06/25/17 00:49 Sodium 148 H Potassium 3.7 Chloride 119 H Carbon Dioxide 18 L BUN 29 H D Creatinine 0.85 Glucose 166 H Calcium 6.7 L - ABG Interpretation ABG results: PT/INR, D-dimer PT 13.9 Seconds (9.4-12.1) H 06/23/17 02:52 - Impressions Impressions Cholangiogram,Operative 06/25/17 00:00 IMPRESSION: Intraprocedural fluoroscopic spot images as above. See separate procedure report for more information. D/ / Luis Carlos Manjarrez MD / Luis Carlos Manjarrez MD Interpreting Provider: Luis Carlos Manjarrez MD Chest X-Ray 06/25/17 08:56 IMPRESSION: Parahilar and lower lobe airspace disease, somewhat greater on the left. Consideration includes pulmonary edema and/or superimposed pneumonia. D/ / Amando Dallas MD / Amando Dallas MD Interpreting Provider: Amando Dallas MD - VTE Documentation of Mechanical Device: Intermittent pneumatic compression device Consult Discharge Plan - Plan Referrals: Mazin Rios [Other] - 07/05/17 10:30 am Oliverio Jenkins DO [Partnered Physician] -
[2017-06-25] MEDS ORDERED: Ringers Solution, Lactated 1,000 ML IVC SCH (17:45)
[2017-06-26] MEDS: Insulin LISPRO 300 UNITS/3 ML VIAL SQ SCH ×4 (03:10→21:57)
[2017-06-26 04:09] LABS: Basophils % 0.1 %; Hematocrit 32.6 % (35.3-44.9); Hemoglobin 10.4 g/dL (11.5-15.4); Immature Granulocytes % 0.7 % (0-4); Lymphocytes # 0.3 K/mcL (0.6-4.6); Lymphocytes % 1.8 %; Mean Corpuscular HGB Conc 31.9 g/dL (31.6-35.5); Mean Corpuscular Hemoglobin 29.4 pg (28.0-33.3); Mean Corpuscular Volume 92.1 fL (83.0-100.0); Mean Platelet Volume 9.4 fL (9.4-12.4); Monocytes # 0.9 K/mcL (0.0-1.3); Monocytes % 5.6 %; Neutrophils # 14.2 K/mcL (1.6-8.9); Platelet Count 222 K/mcL (140-400); Red Blood Count 3.54 M/mcL (3.82-4.97); Red Cell Distribution Width 14.5 % (11.5-14.5); Segmented Neutrophils % 91.8 %
[2017-06-26 04:25] LABS: BUN/Creatinine Ratio 31 (6-26); Blood Urea Nitrogen 26 mg/dL (7-20); Carbon Dioxide 23 mEq/L (19-29); Chloride 116 mEq/L (98-109); Glucose 178 mg/dL (70-99); Magnesium 1.4 mg/dL (1.6-2.6); Osmolality,Calculated 321 (280-300); Potassium 2.8 mEq/L (3.5-4.5); Sodium 151 mEq/L (136-145); eGFR For African Americans > 60 (> 60); eGFR For Non-African Americans > 60 (> 60)
[2017-06-26] MEDS: *HR* Metoprolol 5 MG/5 ML VIAL IVP SCH ×3 (04:51→17:31)
[2017-06-26 06:25] LABS: Basophils % 0.1 %; Hematocrit 34.4 % (35.3-44.9); Hemoglobin 10.9 g/dL (11.5-15.4); Immature Granulocytes % 0.7 % (0-4); Immature Platelets 1.5 % (1.1-6.1); Lymphocytes # 0.4 K/mcL (0.6-4.6); Lymphocytes % 2.3 %; Mean Corpuscular HGB Conc 31.7 g/dL (31.6-35.5); Mean Corpuscular Hemoglobin 29.2 pg (28.0-33.3); Mean Corpuscular Volume 92.2 fL (83.0-100.0); Mean Platelet Volume 9.1 fL (9.4-12.4); Monocytes # 1.1 K/mcL (0.0-1.3); Monocytes % 6.7 %; Neutrophils # 14.8 K/mcL (1.6-8.9); Platelet Count 253 K/mcL (140-400); Red Blood Count 3.73 M/mcL (3.82-4.97); Red Cell Distribution Width 14.6 % (11.5-14.5); Segmented Neutrophils % 90.2 %
[2017-06-26 06:38] LABS: BUN/Creatinine Ratio 30 (6-26); Blood Urea Nitrogen 27 mg/dL (7-20); Carbon Dioxide 22 mEq/L (19-29); Chloride 114 mEq/L (98-109); Glucose 177 mg/dL (70-99); Magnesium 1.4 mg/dL (1.6-2.6); Osmolality,Calculated 319 (280-300); Phosphorous 1.5 mg/dL (2.3-4.7); Potassium 2.8 mEq/L (3.5-4.5); Sodium 150 mEq/L (136-145); eGFR For African Americans > 60 (> 60); eGFR For Non-African Americans > 60 (> 60)
[2017-06-26] MEDS ORDERED: Potassium Chloride 40 MEQ, Lidocaine 1% 2 ML in D5% in Water 500 ML IVPB ONE (08:01)
[2017-06-26] MEDS: Pantoprazole 40 MG VIAL IVP SCH (08:28)
[2017-06-26] MEDS: MetroNIDAZOLE 500 MG/100 ML 500 MG/100 ML BAG IVPB SCH ×3 (08:28→23:25)
[2017-06-26] MEDS: Hydrocortisone Sodium Succ 100 MG/2 ML VIAL IVP SCH (08:28)
[2017-06-26] MEDS ORDERED: Saline Nasal Spray 44 ML BOTTLE NS PRN (10:34)
[2017-06-26] MEDS ORDERED: Magnesium Sulfate 4 GM in D5% in Water 100 ML IVPB ONE (15:06)
--- NOTE | 2017-06-26 15:08 | Internal Med Progress Note ---
Date of Encounter: 06/26/17 Time of Encounter: 10:00 - Assessment and plan (1) Diabetes Current Visit: Yes Status: Acute Assessment and plan: Patient takes metformin at home. Will hold metformin now and cover patient with sliding scale. Glucose level is stable. Qualifiers: Diabetes mellitus type: type 2 Diabetes mellitus complication status: without complication Diabetes mellitus buttermaker continuous churn insulin use: without mcc use Qualified Code(s): E11.9 - Type 2 diabetes mellitus without complications (2) DVT prophylaxis Current Visit: No Status: Acute Assessment and plan: Hold the heparin drip because surgery, may resume if there are no bleeding. On EPCD (3) Dehydration Current Visit: No Status: Acute Assessment and plan: Resume diet now. (4) Acute kidney injury Current Visit: No Status: Acute Assessment and plan: Probably due to nausea vomiting, dehydration. Now Renal function has improved. (5) Hypomagnesemia Current Visit: No Status: Resolved Assessment and plan: F/U magnesium level. Today is low, give mg supplement. (6) Gallstone pancreatitis Current Visit: Yes Status: Acute Assessment and plan: Management per surgical team. Had LC surgery. Recover well. (7) COPD (chronic obstructive pulmonary disease) Current Visit: Yes Status: Acute Assessment and plan: Stable, no wheezing. Continue nasal cannula oxygen to maintain SPO2 around 90% . Patient uses 3 L oxygen at home. Now need 8-10 L, hypoxia probably due to ALI caused by acute pancreatitis on the basis of patient's COPD. No signs of CO2 retention as bicarbonate level 21. BiPAP as needed. Qualifiers: COPD type: emphysema Emphysema type: other Qualified Code(s): J43.8 - Other emphysema (8) Atrial fibrillation with RVR Current Visit: Yes Status: Acute Assessment and plan: Now heart rhythm is sinus rhythm. Resume diet and place pt on po cardizem and metoprolol. (9) Polymyalgia rheumatica Current Visit: No Status: Chronic Assessment and plan: Patient is on chronic steroid, prednisone 5mg daily. She need stress dose because of acute pancreatitis/surgery. Switch to po predinisone and started with 20mg po daily, taper down to her regular dose gradually. (10) Hypokalemia Current Visit: Yes Status: Acute Assessment and plan: Potassium 2.8 today. Give supplement. - Time Spent With Patient 25 - 35 minutes - Subjective Interval history: Patient is a 76-year-old female transferred from [facility] for acute pancreatitis, gallstone. Patient is planned for surgery by our surgical team. However, patient did develop A Fib with rapid ventricular response. I saw and examined patient today. She has minimal pain. Feels better. Had passed gas. HR 88, sinus rhythem. Had laparoscopic cholecystectomy POD #1. Will resume clear liquid diet, resume po medication. D/C cardizem drip. - Constitutional Vitals: Temp Pulse Resp BP Pulse Ox 97.6 F 88 18 149/81 90 06/26/17 11:41 06/26/17 11:41 06/26/17 11:41 06/26/17 11:41 06/26/17 11:41 General appearance: Present: mild distress, A&O X 3, answers questions appropriately - Head Head exam: Present: atraumatic, normocephalic - Eye Eye exam: Present: PERRL, conjuntiva pink, sclera anicteric Pupils: Present: PERRL - Neck Neck exam general surgery: Present: supple, trachea midline. Absent: lymphadenopathy - Respiratory Respiratory exam: Present: CTAB. Absent: accessory muscle use, rales, rhonchi, wheezes - Cardiovascular Cardiovascular exam: Present: RRR, +S1, +S2. Absent: diastolic murmur, gallop, rubs, systolic murmur - GI/Abdominal GI/Abdominal exam: Present: normal bowel sounds, soft, no peritoneal signs. Absent: distended, tenderness - Extremities Exam Extremities exam: Present: warm, radial pulses palpable and symetrical. Absent : calf tenderness, cyanotic, pedal edema - Neurological Exam Neurological exam: Present: CN II-XII intact, oriented X3, no focal deficits. Absent: pronater drift, facial droop, speech deficit - Skin Skin exam: Present: dry, intact Internal Medicine: Result - Labs CBC & Chem 7: 06/26/17 06:18 06/26/17 06:18 Labs: Short CBC 06/26/17 06/26/17 Range/Units 03:37 06:18 WBC 15.5 H 16.4 H (4.3-11.1) K/mcL Hgb 10.4 L 10.9 L (11.5-15.4) g/dL Hct 32.6 L 34.4 L (35.3-44.9) % Plt Count 222 253 (140-400) K/mcL Neutrophils # 14.2 H 14.8 H (1.6-8.9) K/mcL BMP 06/26/17 06/26/17 03:37 06:18 Sodium 151 H 150 H Potassium 2.8 L 2.8 L Chloride 116 H 114 H Carbon Dioxide 23 22 BUN 26 H 27 H Creatinine 0.85 0.90 Glucose 178 H 177 H Calcium 7.0 L 7.0 L - ABG Interpretation ABG results: PT/INR, D-dimer PT 13.9 Seconds (9.4-12.1) H 06/23/17 02:52 - VTE Documentation of Mechanical Device: Graduated compression elastic hosiery Consult Discharge Plan - Plan Referrals: Mazin Rios [Other] - 07/05/17 10:30 am Oliverio Jenkins DO [Partnered Physician] -
--- NOTE | 2017-06-26 17:54 | General Surgery Progress Note ---
Date of Encounter: 06/26/17 Time of Encounter: 16:50 - Assessment and Plan (1) S/P laparoscopic cholecystectomy Current Visit: Yes Status: Acute pod#1 lap stuart w grams start fulls if tolerates advance to diabetic diet is OOB in chair prn pain control overall pt feels better (2) Gallstone pancreatitis Current Visit: Yes Status: Acute (3) Bilateral edema of lower extremity Current Visit: Yes Status: Chronic compression stockings, on in am/off at bedtime, elevate legs when sitting (4) Leukocytosis Current Visit: Yes Status: Acute likely secondary to surgical intervention and steroids, trend on abx - levofloxin and flagyl Qualifiers: Leukocytosis type: unspecified Qualified Code(s): D72.829 - Elevated white blood cell count, unspecified Subjective Patient reports: no new complaints, feels better, still having pain, pain is less Narrative: no nausea no flatus or bm b/l LE edema Objective Vital Signs - Last 8 Hours Temp Pulse Resp BP Pulse Ox 06/26/17 17:08 79 18 142/71 96 06/26/17 11:41 97.6 F 88 18 149/81 90 Intake and Output 06/26/17 06/26/17 06/26/17 07:59 15:59 23:59 Intake Total 225 / 225 100 / 100 Output Total 600 / 600 Balance -375 / -375 100 / 100 Intake: IV Fluids 225 / 225 100 / 100 Cardizem 125 MG In 125 / 125 Dextrose 5% 100 ML @ 10 MG/HR 10 mls/hr IVC . [id number] [facility] Rx#: [id number] Flagyl Premix 500 MG/100 100 / 100 100 / 100 ML 500 mg In 100 ml @ 100 mls/hr IVPB Q8HR [facility] Rx# :[id number] Output: Catheter 600 / 600 Other: Blood Glucose* 168 192 141 - General physical appearance well developed, well nourished, no distress, obese - Eyes normal ocular movement - ENT dry mucosa, normocephalic - Neck Neck exam: trachea midline - Respiratory normal expansion, normal respiratory effort, other (on O2) - Cardiovascular Cardiovascular exam: Present: RRR - Abdomen Abdomen: Present: soft, tender (appropriate post op tenderness) - Incision Incision: Present: clean and dry, intact - Integumentary no rash, no growths - Neurologic normal coordination - Musculoskeletal normal posture, other (bilateral upper and lower extremity edema) - Psychiatric oriented to time, oriented to person, oriented to place, memory intact - Labs 06/26/17 06:18 06/26/17 06:18 Diabetes panel 06/26/17 06/26/17 Range/Units 03:37 06:18 Sodium 151 H 150 H (136-145) mEq/L Potassium 2.8 L 2.8 L (3.5-4.5) mEq/L Chloride 116 H 114 H (98-109) mEq/L Carbon Dioxide 23 22 (19-29) mEq/L BUN 26 H 27 H (7-20) mg/dL Creatinine 0.85 0.90 (0.57-1.11) mg/dL Glucose 178 H 177 H (70-99) mg/dL Calcium 7.0 L 7.0 L (8.6-10.8) mg/dL Calcium panel 06/26/17 06/26/17 Range/Units 03:37 06:18 Calcium 7.0 L 7.0 L (8.6-10.8) mg/dL Phosphorus 1.5 L (2.3-4.7) mg/dL Pituitary panel 06/26/17 06/26/17 Range/Units 03:37 06:18 Sodium 151 H 150 H (136-145) mEq/L Potassium 2.8 L 2.8 L (3.5-4.5) mEq/L Chloride 116 H 114 H (98-109) mEq/L Carbon Dioxide 23 22 (19-29) mEq/L BUN 26 H 27 H (7-20) mg/dL Creatinine 0.85 0.90 (0.57-1.11) mg/dL Glucose 178 H 177 H (70-99) mg/dL Calcium 7.0 L 7.0 L (8.6-10.8) mg/dL Adrenal panel 06/26/17 06/26/17 Range/Units 03:37 06:18 Sodium 151 H 150 H (136-145) mEq/L Potassium 2.8 L 2.8 L (3.5-4.5) mEq/L Chloride 116 H 114 H (98-109) mEq/L Carbon Dioxide 23 22 (19-29) mEq/L BUN 26 H 27 H (7-20) mg/dL Creatinine 0.85 0.90 (0.57-1.11) mg/dL Glucose 178 H 177 H (70-99) mg/dL Calcium 7.0 L 7.0 L (8.6-10.8) mg/dL - VTE Documentation of Mechanical Device: Graduated compression elastic hosiery Consult Discharge Plan - Plan Referrals: Mazin Rios [Other] - 07/05/17 10:30 am Oliverio Jenkins DO [Partnered Physician] -
[2017-06-26] MEDS ORDERED: Furosemide 20 MG/2 ML VIAL IVP ONE (18:40)
[2017-06-26] MEDS: *HR* Morphine 2 MG/ML SYRINGE IVP PRN (20:29)
[2017-06-26] MEDS: Budesonide/Formoterol 160/4.5 MDI IH SCH (22:35)
[2017-06-26] MEDS: *HR* LORazepam 2 MG/ML VIAL IVP PRN (23:25)
[2017-06-27 01:29] LABS: Basophils % 0.1 %; Hematocrit 33.2 % (35.3-44.9); Hemoglobin 10.7 g/dL (11.5-15.4); Immature Granulocytes % 0.9 % (0-4); Lymphocytes # 0.9 K/mcL (0.6-4.6); Lymphocytes % 5.7 %; Mean Corpuscular HGB Conc 32.2 g/dL (31.6-35.5); Mean Corpuscular Hemoglobin 28.7 pg (28.0-33.3); Monocytes # 1.3 K/mcL (0.0-1.3); Monocytes % 8.1 %; Platelet Count 229 K/mcL (140-400); Red Blood Count 3.73 M/mcL (3.82-4.97); Red Cell Distribution Width 14.2 % (11.5-14.5); Segmented Neutrophils % 85.2 %
[2017-06-27 01:42] LABS: BUN/Creatinine Ratio 22 (6-26); Blood Urea Nitrogen 17 mg/dL (7-20); Calcium 7.3 mg/dL (8.6-10.8); Carbon Dioxide 28 mEq/L (19-29); Chloride 107 mEq/L (98-109); Glucose 131 mg/dL (70-99); Magnesium 1.8 mg/dL (1.6-2.6); Osmolality,Calculated 297 (280-300); Potassium 2.8 mEq/L (3.5-4.5); Sodium 142 mEq/L (136-145); eGFR For African Americans > 60 (> 60); eGFR For Non-African Americans > 60 (> 60)
[2017-06-27] MEDS ORDERED: Magnesium Sulfate 2 GM in D5% in Water 100 ML IVPB ONE (07:35)
[2017-06-27] MEDS: Budesonide/Formoterol 160/4.5 MDI IH SCH ×2 (07:51→21:46)
[2017-06-27] MEDS: Insulin LISPRO 300 UNITS/3 ML VIAL SQ SCH ×4 (07:59→21:35)
[2017-06-27] MEDS: Aspirin Enteric Coated 81 MG Tablet PO SCH (08:20)
[2017-06-27] MEDS: MetroNIDAZOLE 500 MG/100 ML 500 MG/100 ML BAG IVPB SCH ×2 (08:20→15:38)
[2017-06-27] MEDS: predniSONE 20 MG TABLET PO SCH (08:20)
[2017-06-27] MEDS: Pantoprazole 40 MG VIAL IVP SCH (08:23)
[2017-06-27] MEDS ORDERED: Levofloxacin 500 MG/100 ML 500 MG/100 ML BAG IVPB SCH (09:00)
--- NOTE | 2017-06-27 12:04 | General Surgery Progress Note ---
Date of Encounter: 06/27/17 Time of Encounter: 12:03 - Assessment and Plan (1) S/P laparoscopic cholecystectomy Current Visit: Yes Status: Acute pod#2 lap stuart w grams tolerated fulls, advance to diabetic diet is OOB in chair prn pain control overall pt feels better (2) Gallstone pancreatitis Current Visit: Yes Status: Acute (3) Bilateral edema of lower extremity Current Visit: Yes Status: Chronic compression stockings, on in am/off at bedtime, elevate legs when sitting (4) Leukocytosis Current Visit: Yes Status: Acute likely secondary to surgical intervention and steroids, trend on abx - levofloxin and flagyl Qualifiers: Leukocytosis type: unspecified Qualified Code(s): D72.829 - Elevated white blood cell count, unspecified Subjective Patient reports: no new complaints, feels better, still having pain, pain is less, tolerating liquids well, flatus, afebrile Objective Vital Signs - Last 8 Hours Temp Pulse Resp BP Pulse Ox 06/27/17 11:30 98.0 F 74 18 112/67 95 06/27/17 07:53 18 96 06/27/17 07:07 97.6 F 89 18 124/65 96 Intake and Output 06/26/17 06/27/17 06/27/17 23:59 07:59 15:59 Intake Total 2500 / 2500 540 / 540 100 / 100 Output Total 1999 Balance 500 / 500 540 / 540 100 / 100 Intake: IV Fluids 100 / 100 100 / 100 100 / 100 Flagyl Premix 500 MG/100 100 / 100 100 / 100 100 / 100 ML 500 mg In 100 ml @ 100 mls/hr IVPB Q8HR [facility] Rx# :[id number] Oral 2400 / 2400 440 / 440 Output: Urine 1999 Other: Meal Dinner Stool Size Moderate Small Stool Consistency loose loose Stool Color Brown Brown # Bowel Movements 1 1 Blood Glucose* 309 170 203 - General physical appearance well developed, well nourished, no distress - Eyes PERRL, normal ocular movement - ENT normal mucosa, normocephalic - Neck Neck exam: trachea midline - Respiratory normal expansion, clear to auscultation - Cardiovascular Cardiovascular exam: Present: RRR - Abdomen Abdomen: Present: bowel sounds present, soft, tender (appropriate post op tenderness) - Incision Incision: Present: clean and dry, intact - Integumentary no growths, other (b/l LE and UE edema) - Neurologic CN 2-12 grossly intact - Musculoskeletal normal posture - Psychiatric oriented to time, oriented to person, oriented to place, memory intact - Labs 06/27/17 00:56 06/27/17 00:55 Short CBC 06/27/17 Range/Units 00:56 WBC 16.5 H (4.3-11.1) K/mcL Hgb 10.7 L (11.5-15.4) g/dL Hct 33.2 L (35.3-44.9) % Plt Count 229 (140-400) K/mcL Neutrophils # 14.0 H (1.6-8.9) K/mcL BMP 06/27/17 Range/Units 00:55 Sodium 142 D (136-145) mEq/L Potassium 2.8 L (3.5-4.5) mEq/L Chloride 107 (98-109) mEq/L Carbon Dioxide 28 (19-29) mEq/L BUN 17 D (7-20) mg/dL Creatinine 0.77 (0.57-1.11) mg/dL Glucose 131 H (70-99) mg/dL Calcium 7.3 L (8.6-10.8) mg/dL Vital Signs Temp Pulse Resp BP Pulse Ox 06/27/17 11:30 98.0 F 74 18 112/67 95 06/27/17 07:53 18 96 06/27/17 07:07 97.6 F 89 18 124/65 96 06/27/17 03:02 97.4 F L 83 15 133/65 93 06/26/17 23:00 97.6 F 79 15 118/55 92 06/26/17 22:37 18 93 06/26/17 19:22 97.7 F 79 15 156/68 93 06/26/17 17:08 79 18 142/71 96 06/26/17 14:00 74 141/70 06/26/17 13:00 71 145/65 Intake and Output 06/26/17 06/27/17 06/27/17 23:59 07:59 15:59 Intake Total 2500 / 2500 540 / 540 100 / 100 Output Total 1999 / 1999 Balance 500 / 500 540 / 540 100 / 100 Intake: IV Fluids 100 / 100 100 / 100 100 / 100 Flagyl Premix 500 MG/100 100 / 100 100 / 100 100 / 100 ML 500 mg In 100 ml @ 100 mls/hr IVPB Q8HR [facility] Rx# :[id number] Oral 2400 / 2400 440 / 440 Output: Urine 1999 Other: Meal Dinner Stool Size Moderate Small Stool Consistency loose loose Stool Color Brown Brown # Bowel Movements 1 1 Blood Glucose* 309 170 203 - VTE Documentation of Mechanical Device: Intermittent pneumatic compression device Consult Discharge Plan - Plan Referrals: Mazin Rios [Other] - 07/05/17 10:30 am Oliverio Jenkins DO [Partnered Physician] -
[2017-06-27] MEDS: Furosemide 40 MG TABLET PO SCH (13:16)
--- NOTE | 2017-06-27 15:00 | Internal Med Progress Note ---
Date of Encounter: 06/27/17 Time of Encounter: 10:00 - Assessment and plan (1) Diabetes Current Visit: Yes Status: Acute Assessment and plan: Patient takes metformin at home. Will hold metformin now and cover patient with sliding scale. Glucose level is stable. Qualifiers: Diabetes mellitus type: type 2 Diabetes mellitus complication status: without complication Diabetes mellitus manager intermediate insulin use: without alf use Qualified Code(s): E11.9 - Type 2 diabetes mellitus without complications (2) DVT prophylaxis Current Visit: No Status: Acute Assessment and plan: Hold the heparin drip because surgery, may resume if there are no bleeding. On EPCD (3) Dehydration Current Visit: No Status: Acute Assessment and plan: Resume diet now. (4) Acute kidney injury Current Visit: No Status: Acute Assessment and plan: Probably due to nausea vomiting, dehydration. Now Renal function has improved. (5) Hypomagnesemia Current Visit: No Status: Resolved Assessment and plan: F/U magnesium level. Today is at low side, give Mg supplement. (6) Gallstone pancreatitis Current Visit: Yes Status: Acute Assessment and plan: Management per surgical team. Had LC surgery. Recover well. (7) COPD (chronic obstructive pulmonary disease) Current Visit: Yes Status: Acute Assessment and plan: Stable, no wheezing. Continue nasal cannula oxygen to maintain SPO2 around 90% . Patient uses 3 L oxygen at home. Now need 8-10 L, hypoxia probably due to ALI caused by acute pancreatitis on the basis of patient's COPD. No signs of CO2 retention as bicarbonate level 21. BiPAP as needed. Qualifiers: COPD type: emphysema Emphysema type: other Qualified Code(s): J43.8 - Other emphysema (8) Atrial fibrillation with RVR Current Visit: Yes Status: Acute Assessment and plan: Now heart rhythm is sinus rhythm. Resume diet and place pt on po cardizem and metoprolol. (9) Polymyalgia rheumatica Current Visit: No Status: Chronic Assessment and plan: Patient is on chronic steroid, prednisone 5mg daily. Stress dose given during acute pancreatitis/surgery. Switch to po predinisone now and started with 20mg po daily, taper down to her regular dose gradually. (10) Hypokalemia Current Visit: Yes Status: Acute Assessment and plan: Potassium 2.8 today, probably due to poor uptake. Cont give supplement. - Time Spent With Patient 25 - 35 minutes - Subjective Interval history: Patient is a 76-year-old female transferred from [facility] for acute pancreatitis, gallstone. Patient is planned for surgery by our surgical team. However, patient did develop A Fib with rapid ventricular response. I saw and examined patient today. She has minimal pain. Feels better. Had passed gas. has both leg swelling, mild SOB. HR 76, sinus rhythem. Had laparoscopic cholecystectomy POD #2. Advanced diet to regular DM diet now. Add lasix po for mild fluid overload. Correct electrolytes abnormality. PT/OT evaluation. - Constitutional Vitals: Temp Pulse Resp BP Pulse Ox 98.0 F 74 18 112/67 95 06/27/17 11:30 06/27/17 11:30 06/27/17 11:30 06/27/17 11:30 06/27/17 11:30 General appearance: Present: mild distress, A&O X 3, answers questions appropriately - Head Head exam: Present: atraumatic, normocephalic - Eye Eye exam: Present: PERRL, conjuntiva pink, sclera anicteric Pupils: Present: PERRL - Neck Neck exam general surgery: Present: supple, trachea midline. Absent: lymphadenopathy - Respiratory Respiratory exam: Present: CTAB. Absent: accessory muscle use, rales, rhonchi, wheezes - Cardiovascular Cardiovascular exam: Present: RRR, +S1, +S2. Absent: diastolic murmur, gallop, rubs, systolic murmur - GI/Abdominal GI/Abdominal exam: Present: normal bowel sounds, soft, no peritoneal signs. Absent: distended, tenderness - Extremities Exam Extremities exam: Present: pedal edema (Moderate leg edema b/l), warm, radial pulses palpable and symetrical. Absent: calf tenderness, cyanotic - Neurological Exam Neurological exam: Present: CN II-XII intact, oriented X3, no focal deficits. Absent: pronater drift, facial droop, speech deficit - Skin Skin exam: Present: dry, intact Internal Medicine: Result - Labs CBC & Chem 7: 06/27/17 00:56 06/27/17 00:55 Labs: Short CBC 06/27/17 Range/Units 00:56 WBC 16.5 H (4.3-11.1) K/mcL Hgb 10.7 L (11.5-15.4) g/dL Hct 33.2 L (35.3-44.9) % Plt Count 229 (140-400) K/mcL Neutrophils # 14.0 H (1.6-8.9) K/mcL BMP 06/27/17 00:55 Sodium 142 D Potassium 2.8 L Chloride 107 Carbon Dioxide 28 BUN 17 D Creatinine 0.77 Glucose 131 H Calcium 7.3 L - ABG Interpretation ABG results: PT/INR, D-dimer PT 13.9 Seconds (9.4-12.1) H 06/23/17 02:52 - VTE Documentation of Mechanical Device: Intermittent pneumatic compression device Consult Discharge Plan - Plan Referrals: Mazni Rios [Other] - 07/05/17 10:30 am Oliverio Jenkins DO [Partnered Physician] -
[2017-06-28] MEDS: MetroNIDAZOLE 500 MG/100 ML 500 MG/100 ML BAG IVPB SCH ×3 (00:23→16:58)
[2017-06-28 03:58] LABS: Basophils % 0.1 %; Eosinophils % 0.1 %; Hematocrit 32.7 % (35.3-44.9); Hemoglobin 10.9 g/dL (11.5-15.4); Immature Granulocytes % 0.9 % (0-4); Lymphocytes # 0.5 K/mcL (0.6-4.6); Lymphocytes % 3.2 %; Mean Corpuscular HGB Conc 33.3 g/dL (31.6-35.5); Mean Corpuscular Hemoglobin 29.4 pg (28.0-33.3); Mean Corpuscular Volume 88.1 fL (83.0-100.0); Mean Platelet Volume 9.1 fL (9.4-12.4); Monocytes # 0.7 K/mcL (0.0-1.3); Monocytes % 4.5 %; Neutrophils # 13.9 K/mcL (1.6-8.9); Platelet Count 192 K/mcL (140-400); Red Blood Count 3.71 M/mcL (3.82-4.97); Red Cell Distribution Width 14.2 % (11.5-14.5); Segmented Neutrophils % 91.2 %
[2017-06-28 04:12] LABS: BUN/Creatinine Ratio 21 (6-26); Blood Urea Nitrogen 16 mg/dL (7-20); Carbon Dioxide 28 mEq/L (19-29); Chloride 102 mEq/L (98-109); Glucose 140 mg/dL (70-99); Magnesium 1.6 mg/dL (1.6-2.6); Osmolality,Calculated 287 (280-300); Potassium 3.8 mEq/L (3.5-4.5); Sodium 137 mEq/L (136-145); eGFR For African Americans > 60 (> 60); eGFR For Non-African Americans > 60 (> 60)
[2017-06-28] MEDS: Insulin LISPRO 300 UNITS/3 ML VIAL SQ SCH ×4 (08:56→21:59)
[2017-06-28] MEDS: Pantoprazole 40 MG VIAL IVP SCH (08:57)
[2017-06-28] MEDS: Lactobacillus 1 EACH CAP.SPRINK PO SCH (08:58)
[2017-06-28] MEDS: Furosemide 40 MG TABLET PO SCH (08:58)
[2017-06-28] MEDS: Aspirin Enteric Coated 81 MG Tablet PO SCH (08:58)
[2017-06-28] MEDS: predniSONE 20 MG TABLET PO SCH (08:58)
[2017-06-28] MEDS: Budesonide/Formoterol 160/4.5 MDI IH SCH ×2 (09:19→22:26)
[2017-06-28] MEDS ORDERED: Furosemide 20 MG/2 ML VIAL IVP ONE (12:26)
[2017-06-28] MEDS: Levofloxacin 500 MG/100 ML 500 MG/100 ML BAG IVPB SCH (15:32)
--- NOTE | 2017-06-28 15:32 | General Surgery Progress Note ---
Date of Encounter: 06/28/17 Time of Encounter: 15:15 - Assessment and Plan (1) Gallstone pancreatitis Current Visit: Yes Status: Acute Postoperative day #3 from a laparoscopic cholecystectomy with Dr. Jenkins Advance diet as tolerated Supportive care and pain control Increase activity as tolerated Physical therapy and occupational therapy consults (2) Atrial fibrillation with RVR Current Visit: Yes Status: Acute Management per medicine service Cardizem and Metoprolol PO (3) HTN (hypertension) Current Visit: No Status: Chronic Normotensive Management per medicine service Qualifiers: Hypertension type: essential hypertension Qualified Code(s): I10 - Essential (primary) hypertension (4) GERD (gastroesophageal reflux disease) Current Visit: Yes Status: Chronic PPI therapy daily Qualifiers: Esophagitis presence: esophagitis presence not specified Qualified Code(s) : K21.9 - Gastro-esophageal reflux disease without esophagitis (5) Asthma Current Visit: Yes Status: Chronic Management per medicine service Qualifiers: Asthma severity: unspecified severity Asthma complication type: uncomplicated Qualified Code(s): J45.909 - Unspecified asthma, uncomplicated (6) Hyperglycemia Current Visit: No Status: Chronic Management per medicine service May resume home medication regimen (7) Polymyalgia rheumatica Current Visit: No Status: Chronic (8) Acute kidney injury Current Visit: No Status: Resolved Resolved Remove davila catheter (9) DVT prophylaxis Current Visit: No Status: Acute EPCDs to bilateral lower extremities for DVT prophylaxis Ambulate hallways with assistance TID Subjective Patient reports: feels better, still having pain, pain is less, tolerating a regular diet, flatus, bowel movement, afebrile Objective Vital Signs - Last 8 Hours Temp Pulse Resp BP Pulse Ox 06/28/17 11:57 86 06/28/17 11:47 97.7 F 88 18 119/55 93 06/28/17 09:19 16 94 06/28/17 08:45 80 06/28/17 07:54 97.8 F 86 18 133/62 92 Intake and Output 06/27/17 06/28/17 06/28/17 23:59 07:59 15:59 Intake Total 100 / 100 100 / 100 120 / 120 Output Total 1900 / 1900 400 / 400 900 / 900 Balance -1800 / -1800 -300 / -300 -780 / -780 Intake: IV Fluids 100 / 100 100 / 100 Flagyl Premix 500 MG/100 100 / 100 100 / 100 ML 500 mg In 100 ml @ 100 mls/hr IVPB Q8HR [facility] Rx# :[id number] Oral 120 / 120 Output: Urine 1550 / 1550 Catheter 350 / 350 400 / 400 900 / 900 Other: Meal Dinner Lunch Percent of Meal Consumed 20% 50% Stool Size Small Moderate Stool Consistency liquid loose soft Stool Characteristics Normal for Patient Stool Color Brown Brown Yellow # Bowel Movements 1 # Bowel Movement Diapers 1 Blood Glucose* 220 133 244 - General physical appearance well developed, well nourished, no distress - Eyes normal ocular movement - ENT normal mucosa, atraumatic, normocephalic - Neck Neck exam: trachea midline - Respiratory normal respiratory effort, clear to auscultation, other (diminished bibasilar bases, 2L oxygen via nasal cannula) - Cardiovascular Cardiovascular exam: Present: irregular rhythm - Abdomen Abdomen: Present: bowel sounds present, soft, tender (Expected postoperative tenderness) - Incision Incision: Present: clean and dry, intact - Neurologic CN 2-12 grossly intact - Musculoskeletal other (Moderate deconditioning) - Psychiatric oriented to time, oriented to person, oriented to place, speech is normal, memory intact - Labs 06/28/17 03:44 06/28/17 03:44 Diabetes panel 06/28/17 Range/Units 03:44 Sodium 137 (136-145) mEq/L Potassium 3.8 D (3.5-4.5) mEq/L Chloride 102 (98-109) mEq/L Carbon Dioxide 28 (19-29) mEq/L BUN 16 (7-20) mg/dL Creatinine 0.77 (0.57-1.11) mg/dL Glucose 140 H (70-99) mg/dL Calcium 8.0 L (8.6-10.8) mg/dL Calcium panel 06/28/17 Range/Units 03:44 Calcium 8.0 L (8.6-10.8) mg/dL Pituitary panel 06/28/17 Range/Units 03:44 Sodium 137 (136-145) mEq/L Potassium 3.8 D (3.5-4.5) mEq/L Chloride 102 (98-109) mEq/L Carbon Dioxide 28 (19-29) mEq/L BUN 16 (7-20) mg/dL Creatinine 0.77 (0.57-1.11) mg/dL Glucose 140 H (70-99) mg/dL Calcium 8.0 L (8.6-10.8) mg/dL Adrenal panel 06/28/17 Range/Units 03:44 Sodium 137 (136-145) mEq/L Potassium 3.8 D (3.5-4.5) mEq/L Chloride 102 (98-109) mEq/L Carbon Dioxide 28 (19-29) mEq/L BUN 16 (7-20) mg/dL Creatinine 0.77 (0.57-1.11) mg/dL Glucose 140 H (70-99) mg/dL Calcium 8.0 L (8.6-10.8) mg/dL - VTE Documentation of Mechanical Device: Graduated compression elastic hosiery Consult Discharge Plan - Plan Referrals: Mazin Rios [Other] - 07/05/17 10:30 am Oliverio Jenkins DO [Partnered Physician] -
--- NOTE | 2017-06-28 17:49 | Internal Med Progress Note ---
Date of Encounter: 06/28/17 Time of Encounter: 10:00 - Assessment and plan (1) Diabetes Current Visit: Yes Status: Acute Assessment and plan: Patient takes metformin at home. Will hold metformin now and cover patient with sliding scale. Glucose level is stable. 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 On EPCD. (3) Dehydration Current Visit: No Status: Acute Assessment and plan: Resume diet now. (4) Acute kidney injury Current Visit: No Status: Resolved Assessment and plan: Probably due to nausea vomiting, dehydration. Now Renal function has improved. (5) Hypomagnesemia Current Visit: No Status: Resolved Assessment and plan: F/U magnesium level. Today is at low side, give Mg supplement. (6) Gallstone pancreatitis Current Visit: Yes Status: Acute Assessment and plan: Management per surgical team. Had LC surgery. Recover well. (7) COPD (chronic obstructive pulmonary disease) Current Visit: Yes Status: Acute Assessment and plan: Stable, no wheezing. Continue nasal cannula oxygen to maintain SPO2 around 90% . Patient uses 3 L oxygen at home. Now her oxygen requirement is at her baseline. Qualifiers: COPD type: emphysema Emphysema type: other Qualified Code(s): J43.8 - Other emphysema (8) Atrial fibrillation with RVR Current Visit: Yes Status: Acute Assessment and plan: Now heart rhythm is sinus rhythm. Resume diet and place pt on po cardizem and metoprolol. Patient needs long-term anticoagulation per cardio consult. Agree with Eliquis 5 mg by mouth twice a day. Need surgical team decide when anticoagulation can be started (9) Polymyalgia rheumatica Current Visit: No Status: Chronic Assessment and plan: Patient is on chronic steroid, prednisone 5mg daily. Stress dose given during acute pancreatitis/surgery. Switch to po predinisone now and taper down to 10mg po daily now, taper down to her regular dose gradually. (10) Hypokalemia Current Visit: Yes Status: Acute Assessment and plan: Resolved after supplement. (11) Leg swelling Current Visit: Yes Status: Acute Assessment and plan: Patient was given IV fluid for pancreatitis before surgery. Now has leg swelling. Echo shows acceptable heart function. Will place patient on Lasix by mouth and was given 20 mg IV extra dose today. - Time Spent With Patient 25 - 35 minutes - Subjective Interval history: Patient is a 76-year-old female transferred from [facility] for acute pancreatitis, gallstone. Patient is planned for surgery by our surgical team. However, patient did develop A Fib with rapid ventricular response and medical consult was called. I saw and examined patient today. She has minimal pain. Feels better. Had BM. Still has both leg swelling, no SOB. HR 76, sinus rhythem. Had laparoscopic cholecystectomy POD #3. Advanced diet to regular DM diet now. Add lasix po for mild fluid overload and 20mg iv once for today. Correct electrolytes abnormality. PT/OT evaluation. - Constitutional Vitals: Temp Pulse Resp BP Pulse Ox 98.0 F 78 18 95/61 91 06/28/17 15:28 06/28/17 15:57 06/28/17 15:28 06/28/17 15:28 06/28/17 15:28 General appearance: Present: mild distress, A&O X 3, answers questions appropriately - Head Head exam: Present: atraumatic, normocephalic - Eye Eye exam: Present: PERRL, conjuntiva pink, sclera anicteric Pupils: Present: PERRL - Neck Neck exam general surgery: Present: supple, trachea midline. Absent: lymphadenopathy - Respiratory Respiratory exam: Present: CTAB. Absent: accessory muscle use, rales, rhonchi, wheezes - Cardiovascular Cardiovascular exam: Present: RRR, +S1, +S2. Absent: diastolic murmur, gallop, rubs, systolic murmur - GI/Abdominal GI/Abdominal exam: Present: normal bowel sounds, soft, no peritoneal signs. Absent: distended, tenderness - Extremities Exam Extremities exam: Present: pedal edema (Bilaterally), warm, radial pulses palpable and symetrical. Absent: calf tenderness, cyanotic - Neurological Exam Neurological exam: Present: CN II-XII intact, oriented X3, no focal deficits. Absent: pronater drift, facial droop, speech deficit - Skin Skin exam: Present: dry, intact Internal Medicine: Result - Labs CBC & Chem 7: 06/28/17 03:44 06/28/17 03:44 Labs: Short CBC 06/28/17 Range/Units 03:44 WBC 15.2 H (4.3-11.1) K/mcL Hgb 10.9 L (11.5-15.4) g/dL Hct 32.7 L (35.3-44.9) % Plt Count 192 (140-400) K/mcL Neutrophils # 13.9 H (1.6-8.9) K/mcL BMP 06/28/17 03:44 Sodium 137 Potassium 3.8 D Chloride 102 Carbon Dioxide 28 BUN 16 Creatinine 0.77 Glucose 140 H Calcium 8.0 L - ABG Interpretation ABG results: PT/INR, D-dimer PT 13.9 Seconds (9.4-12.1) H 06/23/17 02:52 - VTE Documentation of Mechanical Device: Graduated compression elastic hosiery Consult Discharge Plan - Plan Referrals: Mazin Rios [Other] - 07/05/17 10:30 am Oliverio Jenkins DO [Partnered Physician] -
[2017-06-29] MEDS: MetroNIDAZOLE 500 MG/100 ML 500 MG/100 ML BAG IVPB SCH ×3 (00:02→16:49)
[2017-06-29 06:02] LABS: Basophils % 0.1 %; Eosinophils % 0.2 %; Hematocrit 31.1 % (35.3-44.9); Hemoglobin 10.3 g/dL (11.5-15.4); Immature Granulocytes % 0.8 % (0-4); Lymphocytes # 0.6 K/mcL (0.6-4.6); Lymphocytes % 3.6 %; Mean Corpuscular HGB Conc 33.1 g/dL (31.6-35.5); Mean Corpuscular Volume 87.6 fL (83.0-100.0); Mean Platelet Volume 9.1 fL (9.4-12.4); Monocytes % 5.8 %; Neutrophils # 15.5 K/mcL (1.6-8.9); Platelet Count 225 K/mcL (140-400); Red Blood Count 3.55 M/mcL (3.82-4.97); Red Cell Distribution Width 13.9 % (11.5-14.5); Segmented Neutrophils % 89.5 %
[2017-06-29 06:20] LABS: Alanine Aminotransferase 30 Units/L (0-55); Albumin 2.1 g/dL (3.5-5.0); Albumin/Globulin Ratio 0.7 (1.1-2.2); Alkaline Phosphatase 134 Units/L (38-126); Aspartate Amino Transferase 15 Units/L (5-34); BUN/Creatinine Ratio 21 (6-26); BUN/Creatinine Ratio 22 (6-26); Bilirubin,Total 0.4 mg/dL (0.2-1.2); Blood Urea Nitrogen 15 mg/dL (7-20); Blood Urea Nitrogen 16 mg/dL (7-20); Calcium 8.2 mg/dL (8.6-10.8); Carbon Dioxide 31 mEq/L (19-29); Chloride 98 mEq/L (98-109); Globulin 3.1 g/dL (2.4-3.5); Glucose 181 mg/dL (70-99); Osmolality,Calculated 283 (280-300); Osmolality,Calculated 284 (280-300); Potassium 3.6 mEq/L (3.5-4.5); Sodium 134 mEq/L (136-145); Total Protein 5.2 g/dL (6.0-8.3); eGFR For African Americans > 60 (> 60); eGFR For Non-African Americans > 60 (> 60)
[2017-06-29] MEDS: Pantoprazole 40 MG VIAL IVP SCH (08:09)
[2017-06-29] MEDS: Insulin LISPRO 300 UNITS/3 ML VIAL SQ SCH ×3 (08:09→17:18)
[2017-06-29] MEDS: Lactobacillus 1 EACH CAP.SPRINK PO SCH (08:10)
[2017-06-29] MEDS: Aspirin Enteric Coated 81 MG Tablet PO SCH (08:10)
[2017-06-29] MEDS: Furosemide 40 MG TABLET PO SCH (08:10)
[2017-06-29] MEDS: Magnesium Oxide 400 MG TABLET PO SCH (08:10)
[2017-06-29] MEDS: Budesonide/Formoterol 160/4.5 MDI IH SCH ×2 (08:25→22:04)
[2017-06-29] MEDS ORDERED: predniSONE 20 MG TABLET PO SCH ×2 (09:00→11:29)
[2017-06-29] MEDS ORDERED: Magnesium Sulfate 2 GM in D5% in Water 100 ML IVPB ONE ×2 (09:00→14:00)
--- NOTE | 2017-06-29 11:18 | Internal Med Progress Note ---
Date of Encounter: 06/29/17 Time of Encounter: 11:17 - Assessment and plan (1) Gallstone pancreatitis Current Visit: Yes Status: Acute Assessment and plan: resolved s/p lap cholecystectomy cont Abx ..Levofloxacin and Flagyl # 4/7 (2) S/P laparoscopic cholecystectomy Current Visit: Yes Status: Acute Assessment and plan: POD # 4 Doing well elevated WBC mostly due to Steroids / reactive cont trend on WBC (3) Atrial fibrillation with RVR Current Visit: Yes Status: Resolved Assessment and plan: in NSR Changed do PO Cardizem LA 120mg daily Reviewed card notes.. Talked to surgeon and they are ok to start pt on Eliquis from today (4) Leukocytosis Current Visit: Yes Status: Acute Assessment and plan: could be due to recent stress dose steroids cont tapering down steroids to home dose 5mg daily Qualifiers: Leukocytosis type: unspecified Qualified Code(s): D72.829 - Elevated white blood cell count, unspecified (5) Hypomagnesemia Current Visit: No Status: Resolved Assessment and plan: replaced Mg f/u lab in AM (6) COPD (chronic obstructive pulmonary disease) Current Visit: Yes Status: Acute Assessment and plan: Stable, no wheezing. Continue nasal cannula oxygen to maintain SPO2 around 90% . Patient uses 3 L oxygen at home. Now her oxygen requirement is at her baseline. Qualifiers: COPD type: emphysema Emphysema type: other Qualified Code(s): J43.8 - Other emphysema (7) Acute kidney injury Current Visit: No Status: Resolved Assessment and plan: Probably pre renal due to dehydration Resolved (8) DVT prophylaxis Current Visit: No Status: Acute Assessment and plan: on Eliquis (9) Physical deconditioning Current Visit: Yes Status: Acute Assessment and plan: PT / OT working [facility] pt pt refused to go to SNF will d/c home in AM with home PT / OT - Subjective Interval history: Patient is a 76-year-old female transferred from [facility] for acute pancreatitis, gallstone. Patient is planned for surgery by our surgical team. However, patient did develop A Fib with rapid ventricular response and medical consult was called. Now pt is in NSR..Had Lap cholecystectomy done 3 days ago. Restingi comfortably. Pain is tolerable. Had a BM this morning. - Constitutional Vitals: Temp Pulse Resp BP Pulse Ox 98.4 F 86 19 111/51 92 06/29/17 11:03 06/29/17 11:03 06/29/17 11:03 06/29/17 11:03 06/29/17 11:03 General appearance: Present: A&O X 3 (looks weak and lethargic), answers questions appropriately - Head Head exam: Present: atraumatic, normal inspection - Respiratory Respiratory exam: Present: decreased breath sounds. Absent: rales, respiratory distress, rhonchi, wheezes - Cardiovascular Cardiovascular exam: Present: RRR, +S1, +S2. Absent: gallop, systolic murmur - GI/Abdominal GI/Abdominal exam: Present: soft, tenderness (mild discomfmort RUQ region). Absent: rebound, rigid - Extremities Exam Extremities exam: Present: pedal edema (traceble edema), warm. Absent: calf tenderness - Psychiatric Psychiatric exam: Present: normal affect, normal mood Internal Medicine: Result - Labs CBC & Chem 7: 06/29/17 05:43 06/29/17 05:43 Labs: Short CBC 06/29/17 Range/Units 05:43 WBC 17.3 H (4.3-11.1) K/mcL Hgb 10.3 L (11.5-15.4) g/dL Hct 31.1 L (35.3-44.9) % Plt Count 225 (140-400) K/mcL Neutrophils # 15.5 H (1.6-8.9) K/mcL BMP 06/29/17 06/29/17 05:43 05:43 Sodium 134 L 134 L Potassium 3.6 3.6 Chloride 98 98 Carbon Dioxide 31 H 31 H BUN 16 15 Creatinine 0.73 0.71 Glucose 181 H 181 H Calcium 8.2 L 8.2 L Liver Function 06/29/17 Range/Units 05:43 Total Bilirubin 0.4 (0.2-1.2) mg/dL AST 15 (5-34) Units/L ALT 30 (0-55) Units/L Alkaline Phosphatase 134 H (38-126) Units/L Albumin 2.1 L (3.5-5.0) g/dL - ABG Interpretation ABG results: PT/INR, D-dimer PT 13.9 Seconds (9.4-12.1) H 06/23/17 02:52 - VTE Documentation of Mechanical Device: Graduated compression elastic hosiery Consult Discharge Plan - Plan Referrals: Mazin Rios [Other] - 07/05/17 10:30 am Oliverio Jenkins DO [Partnered Physician] -
--- NOTE | 2017-06-29 11:32 | General Surgery Progress Note ---
Date of Encounter: 06/29/17 Time of Encounter: 11:10 - Assessment and Plan (1) Gallstone pancreatitis Current Visit: Yes Status: Acute Postoperative day for of laparoscopic cholecystectomy with Dr. Jenkins Advanced diet as tolerated Supportive care and discomfort management Increase activity as tolerated: PT/OT, discharge planning pending transition to po abx and safety, for home with help from her daughter at this time; rn social services consult for home health Umbilical incision draining serous fluid. No s/s of infection noted. Apply dry dressing PRN. (2) Atrial fibrillation with RVR Current Visit: Yes Status: Resolved Management per medicine and cardiology. OK to start Eliquis today from a surgical perspective (3) DVT prophylaxis Current Visit: No Status: Acute OOB with assistance and mobilize as tolerated. Per medicine pt to begin therapeutic Eliquis therapy today. (4) Weakness Current Visit: No Status: Acute Pt reports continued symptoms of deconditioning. PT and OT are involved. Pt is adamant that she will go home with the help of her daughter as opposed to rehab. disability services coordinator consult for home health/PT OT eval. (5) Leukocytosis Current Visit: Yes Status: Acute Pt has resumed her home PO steroids, could contribute to interval increase in WBC Continue IV antibiotics. Repeat am labs Will continue to monitor Qualifiers: Leukocytosis type: unspecified Qualified Code(s): D72.829 - Elevated white blood cell count, unspecified (6) Volume overload Current Visit: Yes Status: Acute Management per medicine/cardiology Currently 1.4 liter + this admission; denies s/s of fluid overload currently Qualifiers: Hypervolemia type: unspecified Qualified Code(s): E87.70 - Fluid overload, unspecified (7) COPD (chronic obstructive pulmonary disease) Current Visit: Yes Status: Acute Management per medicine. Home O2 noted. Qualifiers: COPD type: emphysema Emphysema type: other Qualified Code(s): J43.8 - Other emphysema (8) GERD (gastroesophageal reflux disease) Current Visit: Yes Status: Chronic Daily PPI therapy Qualifiers: Esophagitis presence: esophagitis presence not specified Qualified Code(s) : K21.9 - Gastro-esophageal reflux disease without esophagitis (9) HTN (hypertension) Current Visit: No Status: Chronic Qualifiers: Hypertension type: essential hypertension Qualified Code(s): I10 - Essential (primary) hypertension Subjective Patient reports: feels better, still having pain, pain is less, tolerating liquids well, voiding w/o difficulty, flatus, bowel movement, nausea ( Intermittently), afebrile Narrative: Adriana reports that her abdominal discomfort is drastically improved from prior to surgery. She reports that her discomfort is managed with the current regimen and that she has intermittent nausea with which she cannot associate activity or diet. She denies fecal urgency or diarrhea and reports bowel movement. She endorses flatus. Adriana states that her daughter will be helping her at discharge. She is not agreeable to discharge to rehab as "I want to go home." She is working with PT/OT, but states that she is "too weak to get up and walk around in here by myself." Objective Vital Signs - Last 8 Hours Temp Pulse Resp BP Pulse Ox 06/29/17 11:03 98.4 F 86 19 111/51 92 06/29/17 08:23 16 94 06/29/17 07:15 98.6 F 84 18 133/62 93 06/29/17 07:10 82 Intake and Output 06/28/17 06/29/17 06/29/17 23:59 07:59 15:59 Intake Total 980 / 980 200 / 200 360 / 360 Output Total 500 / 500 755 / 755 200 / 200 Balance 480 / 480 -555 / -555 160 / 160 Intake: IV Fluids 100 / 100 100 / 100 Flagyl Premix 500 MG/100 100 / 100 100 / 100 ML 500 mg In 100 ml @ 100 mls/hr IVPB Q8HR [facility] Rx# :[id number] Oral 880 / 880 100 / 100 360 / 360 Output: Urine 300 / 300 755 / 755 200 / 200 Catheter 200 / 200 Other: Meal Dinner Breakfast Percent of Meal Consumed 10% 5% Stool Size Small Small Stool Consistency soft soft Stool Color Brown Brown Blood Glucose* 268 164 259 - General physical appearance well nourished, no distress (Sitting upright in chair at bedside. Nasal cannula O2 noted.) - Eyes normal ocular movement - ENT normal nares, normal mucosa, atraumatic, normocephalic - Neck Neck exam: trachea midline - Respiratory normal expansion, normal respiratory effort, clear to auscultation - Cardiovascular Cardiovascular exam: Present: RRR, murmurs - Abdomen Abdomen: Present: bowel sounds present, soft, tender (Expected postoperative tenderness) Hernia: none - Incision Incision: Present: intact, serous (Umbilical incision) - Integumentary no rash - Neurologic CN 2-12 grossly intact - Musculoskeletal normal posture, other (Bilateral upper extremity edema) - Psychiatric oriented to time, oriented to person, oriented to place - Labs 06/29/17 05:43 06/29/17 05:43 Diabetes panel 06/29/17 06/29/17 Range/Units 05:43 05:43 Sodium 134 L 134 L (136-145) mEq/L Potassium 3.6 3.6 (3.5-4.5) mEq/L Chloride 98 98 (98-109) mEq/L Carbon Dioxide 31 H 31 H (19-29) mEq/L BUN 16 15 (7-20) mg/dL Creatinine 0.73 0.71 (0.57-1.11) mg/dL Glucose 181 H 181 H (70-99) mg/dL Calcium 8.2 L 8.2 L (8.6-10.8) mg/dL AST 15 (5-34) Units/L ALT 30 (0-55) Units/L Alkaline Phosphatase 134 H (38-126) Units/L Albumin 2.1 L (3.5-5.0) g/dL Calcium panel 06/29/17 06/29/17 Range/Units 05:43 05:43 Calcium 8.2 L 8.2 L (8.6-10.8) mg/dL Albumin 2.1 L (3.5-5.0) g/dL Pituitary panel 06/29/17 06/29/17 Range/Units 05:43 05:43 Sodium 134 L 134 L (136-145) mEq/L Potassium 3.6 3.6 (3.5-4.5) mEq/L Chloride 98 98 (98-109) mEq/L Carbon Dioxide 31 H 31 H (19-29) mEq/L BUN 16 15 (7-20) mg/dL Creatinine 0.73 0.71 (0.57-1.11) mg/dL Glucose 181 H 181 H (70-99) mg/dL Calcium 8.2 L 8.2 L (8.6-10.8) mg/dL Adrenal panel 06/29/17 06/29/17 Range/Units 05:43 05:43 Sodium 134 L 134 L (136-145) mEq/L Potassium 3.6 3.6 (3.5-4.5) mEq/L Chloride 98 98 (98-109) mEq/L Carbon Dioxide 31 H 31 H (19-29) mEq/L BUN 16 15 (7-20) mg/dL Creatinine 0.73 0.71 (0.57-1.11) mg/dL Glucose 181 H 181 H (70-99) mg/dL Calcium 8.2 L 8.2 L (8.6-10.8) mg/dL Total Bilirubin 0.4 (0.2-1.2) mg/dL AST 15 (5-34) Units/L ALT 30 (0-55) Units/L Alkaline Phosphatase 134 H (38-126) Units/L Albumin 2.1 L (3.5-5.0) g/dL - VTE Documentation of Mechanical Device: Graduated compression elastic hosiery Consult Discharge Plan - Plan Referrals: Mazin Rios [Other] - 07/05/17 10:30 am Oliverio Jenkins DO [Partnered Physician] - Carlotta Dunn CNP [Advanced Practice Nurse] - (07/12/2017 11:00 am)
[2017-06-29] MEDS: APIXABAN 5 MG TABLET PO SCH ×2 (11:45→22:20)
[2017-06-29] MEDS: Diltiazem CD (24hr) 120 MG CAPSULE PO SCH (11:46)
[2017-06-29] MEDS: Levofloxacin 500 MG/100 ML 500 MG/100 ML BAG IVPB SCH (13:43)
[2017-06-29] MEDS: *HR* LORazepam 2 MG/ML VIAL IVP PRN (14:22)
[2017-06-29] MEDS: *HR* Metformin 500 MG TABLET PO SCH (16:48)
[2017-06-29] MEDS: *HR* LORazepam 0.5 MG TABLET PO PRN (22:20)
[2017-06-30] MEDS: MetroNIDAZOLE 500 MG/100 ML 500 MG/100 ML BAG IVPB SCH ×2 (00:22→08:38)
[2017-06-30] MEDS: Insulin LISPRO 300 UNITS/3 ML VIAL SQ SCH ×3 (00:24→12:35)
[2017-06-30 07:24] LABS: Basophils % 0.2 %; Eosinophils % 0.2 %; Hematocrit 32.5 % (35.3-44.9); Hemoglobin 10.7 g/dL (11.5-15.4); Immature Granulocytes % 1.1 % (0-4); Lymphocytes # 0.8 K/mcL (0.6-4.6); Mean Corpuscular HGB Conc 32.9 g/dL (31.6-35.5); Mean Corpuscular Hemoglobin 28.7 pg (28.0-33.3); Mean Corpuscular Volume 87.1 fL (83.0-100.0); Mean Platelet Volume 9.1 fL (9.4-12.4); Monocytes # 1.9 K/mcL (0.0-1.3); Monocytes % 7.8 %; Neutrophils # 21.8 K/mcL (1.6-8.9); Platelet Count 306 K/mcL (140-400); Red Blood Count 3.73 M/mcL (3.82-4.97); Red Cell Distribution Width 13.9 % (11.5-14.5); Segmented Neutrophils % 87.7 %
[2017-06-30 07:37] LABS: BUN/Creatinine Ratio 18 (6-26); Blood Urea Nitrogen 13 mg/dL (7-20); Calcium 8.4 mg/dL (8.6-10.8); Carbon Dioxide 29 mEq/L (19-29); Chloride 95 mEq/L (98-109); Glucose 186 mg/dL (70-99); Magnesium 1.3 mg/dL (1.6-2.6); Osmolality,Calculated 281 (280-300); Potassium 3.6 mEq/L (3.5-4.5); Sodium 133 mEq/L (136-145); eGFR For African Americans > 60 (> 60); eGFR For Non-African Americans > 60 (> 60)
[2017-06-30] MEDS: Budesonide/Formoterol 160/4.5 MDI IH SCH (08:22)
[2017-06-30 08:23] LABS: Basophils # 0.1 K/mcL (0.0-0.2); Eosinophils # 0.1 K/mcL (0.0-0.6)
[2017-06-30 08:24] LABS: Toxic Granulation Present (Not Present)
[2017-06-30] MEDS: Furosemide 40 MG TABLET PO SCH (08:35)
[2017-06-30] MEDS: Magnesium Oxide 400 MG TABLET PO SCH (08:35)
[2017-06-30] MEDS: Lactobacillus 1 EACH CAP.SPRINK PO SCH (08:35)
[2017-06-30] MEDS: Diltiazem CD (24hr) 120 MG CAPSULE PO SCH (08:35)
[2017-06-30] MEDS: Aspirin Enteric Coated 81 MG Tablet PO SCH (08:35)
[2017-06-30] MEDS: APIXABAN 5 MG TABLET PO SCH (08:36)
[2017-06-30] MEDS: *HR* Metformin 500 MG TABLET PO SCH (10:03)
[2017-06-30] MEDS ORDERED: Magnesium Sulfate 2 GM in D5% in Water 100 ML IVPB ONE (10:39)
[2017-06-30] MEDS ORDERED: NON-FORMULARY MEDICATION 1 EACH EACH (Metformin Hcl [Metformin Hcl Er] 500 MG) PO SCH (10:45)
--- NOTE | 2017-06-30 11:05 | General Surgery Progress Note ---
Date of Encounter: 06/30/17 Time of Encounter: 10:30 - Assessment and Plan (1) Gallstone pancreatitis Current Visit: Yes Status: Acute Postoperative day #5 of laparoscopic cholecystectomy with Dr. Jenkins -Advanced diet as tolerated -Supportive care and discomfort management -Increase activity as tolerated: PT/OT, discharge planning pending transition to po abx and safety, for home with help from her daughter at this time; -director of consulting services consult for home health -Umbilical incision draining serous fluid. No s/s of infection noted; however we did open the area with a q-tip and packed with 1/2 inch iodoform gauze for wicking. Apply dry dressing PRN. OK to change packing to 1/4 inch plain gauze 07/01 per RN. (2) Leukocytosis Current Visit: Yes Status: Acute Significant increase in Leukcytosis today (from 17.3 to 24.9 and positive toxic ganulation). Pt has resumed her home PO steroids (5 mg prednisone) could contribute to interval increase in WBC, but would not expect to this degree. Will obtain blood cultures x2, urinary culture, sputum cultuer, CXR, BL LE dopplers to r/o DVT, but will hold off on abdominal CT as abdominal exam is not consistent with infectious exam. Consideration given clinical course and above results. Continue IV antibiotics, will adjust pending work-up. Repeat am labs Will continue to monitor Qualifiers: Leukocytosis type: unspecified Qualified Code(s): D72.829 - Elevated white blood cell count, unspecified (3) Atrial fibrillation with RVR Current Visit: Yes Status: Resolved Management per medicine and cardiology. Has resumed Eliquis. Ok from a surgical perspective to transfer to a telemetry (4) DVT prophylaxis Current Visit: No Status: Acute OOB with assistance and mobilize as tolerated. Per medicine pt to begin therapeutic Eliquis. (5) Weakness Current Visit: No Status: Acute Pt reports continued symptoms of deconditioning. PT and OT are involved. Pt is adamant that she will go home with the help of her daughter as opposed to rehab. director of consulting services consult for home health/PT OT eval. (6) Volume overload Current Visit: Yes Status: Acute Management per medicine/cardiology No s/s of fluid overload at this time. Will replace magnesium Qualifiers: Hypervolemia type: unspecified Qualified Code(s): E87.70 - Fluid overload, unspecified (7) COPD (chronic obstructive pulmonary disease) Current Visit: Yes Status: Acute Management per medicine. Home O2 noted. Qualifiers: COPD type: emphysema Emphysema type: other Qualified Code(s): J43.8 - Other emphysema (8) GERD (gastroesophageal reflux disease) Current Visit: Yes Status: Chronic Daily PPI therapy Qualifiers: Esophagitis presence: esophagitis presence not specified Qualified Code(s) : K21.9 - Gastro-esophageal reflux disease without esophagitis (9) HTN (hypertension) Current Visit: No Status: Chronic Qualifiers: Hypertension type: essential hypertension Qualified Code(s): I10 - Essential (primary) hypertension Subjective Patient reports: still having pain, pain is less, tolerating liquids well, voiding w/o difficulty, flatus, bowel movement, diarrhea (x2 06/29/2017) Narrative: Adriana reports feeling somewhat more fatigued today. She contributes this to "I was up a lot yesterday." She states abdominal discomfort is improving. She denies n/v. She endorse 2 episodes of diarrhea on 06/29. Denies cough, SOB, CP, LE discomfort, or urinary s/s. Objective Vital Signs - Last 8 Hours Temp Pulse Resp BP Pulse Ox 06/30/17 08:53 97 151/75 06/30/17 08:24 16 94 06/30/17 07:44 98.0 F 80 19 151/75 93 06/30/17 03:55 98.4 F 88 18 151/74 95 Intake and Output 06/29/17 06/30/17 06/30/17 23:59 07:59 15:59 Intake Total 648 / 648 100 / 100 240 / 240 Output Total 350 / 350 Balance 298 / 298 100 / 100 240 / 240 Intake: IV Fluids 408 / 408 100 / 100 Levaquin Premix 500mg/ 100 / 100 100mL 500 mg In 100 ml @ 100 mls/hr IVPB Q24H [facility] Rx#:[id number] Magnesium Sulfate 2 GM In 208 / 208 Dextrose 5% 100 ML @ 100 mls/hr IVPB ONCE ONE Rx# :[id number] Flagyl Premix 500 MG/100 100 / 100 100 / 100 ML 500 mg In 100 ml @ 100 mls/hr IVPB Q8HR [facility] Rx# :[id number] Oral 240 / 240 240 / 240 Output: Urine 350 / 350 Other: Meal Dinner Breakfast Percent of Meal Consumed 5% 10% Stool Size Moderate Small Stool Consistency loose loose soft soft Stool Characteristics Normal for Patient Stool Color Brown Brown # Voids 1 1 # Bowel Movements 1 1 Weight 83.9 kg Blood Glucose* 213 179 Patient Weight 06/30/17 23:59 Weight 83.9 kg - General physical appearance no distress, moderate pain - ENT normal mucosa, atraumatic, normocephalic - Neck Neck exam: trachea midline, no venous distension - Respiratory other (decreased bibasilar, but clear to auscultation) - Cardiovascular Cardiovascular exam: Present: RRR, murmurs - Abdomen Abdomen: Present: bowel sounds present, soft, tender (expected postoperative tenderness) Hernia: none - Incision Incision: Present: serous, open (Periumbilical incision. ) - Neurologic CN 2-12 grossly intact - Musculoskeletal normal posture - Psychiatric oriented to time, oriented to person, oriented to place - Labs 06/30/17 06:34 06/30/17 06:34 Diabetes panel 06/30/17 Range/Units 06:34 Sodium 133 L (136-145) mEq/L Potassium 3.6 (3.5-4.5) mEq/L Chloride 95 L (98-109) mEq/L Carbon Dioxide 29 (19-29) mEq/L BUN 13 (7-20) mg/dL Creatinine 0.71 (0.57-1.11) mg/dL Glucose 186 H (70-99) mg/dL Calcium 8.4 L (8.6-10.8) mg/dL Calcium panel 06/30/17 Range/Units 06:34 Calcium 8.4 L (8.6-10.8) mg/dL Pituitary panel 06/30/17 Range/Units 06:34 Sodium 133 L (136-145) mEq/L Potassium 3.6 (3.5-4.5) mEq/L Chloride 95 L (98-109) mEq/L Carbon Dioxide 29 (19-29) mEq/L BUN 13 (7-20) mg/dL Creatinine 0.71 (0.57-1.11) mg/dL Glucose 186 H (70-99) mg/dL Calcium 8.4 L (8.6-10.8) mg/dL Adrenal panel 06/30/17 Range/Units 06:34 Sodium 133 L (136-145) mEq/L Potassium 3.6 (3.5-4.5) mEq/L Chloride 95 L (98-109) mEq/L Carbon Dioxide 29 (19-29) mEq/L BUN 13 (7-20) mg/dL Creatinine 0.71 (0.57-1.11) mg/dL Glucose 186 H (70-99) mg/dL Calcium 8.4 L (8.6-10.8) mg/dL - VTE Documentation of Mechanical Device: Graduated compression elastic hosiery Consult Discharge Plan - Plan Referrals: Mazin Rios [Other] - 07/05/17 10:30 am Oliverio Jenkins DO [Partnered Physician] - Carlotta Dunn CNP [Advanced Practice Nurse] - (07/12/2017 11:00 am)
[2017-06-30] MEDS: Levofloxacin 500 MG/100 ML 500 MG/100 ML BAG IVPB SCH (13:52)
[2017-06-30] MEDS: *HR* LORazepam 0.5 MG TABLET PO PRN (14:01)
--- NOTE | 2017-06-30 16:52 | Internal Med Progress Note ---
Date of Encounter: 06/30/17 Time of Encounter: 15:00 - Assessment and plan (1) Gallstone pancreatitis Current Visit: Yes Status: Acute Assessment and plan: resolved s/p lap cholecystectomy cont empirical Abx ..Levofloxacin and Flagyl # 5/ (2) S/P laparoscopic cholecystectomy Current Visit: Yes Status: Acute Assessment and plan: POD # 5 Doing well Her WBC went up to 24.9 - may not be due to steroids definitely need to r/o any other source interesting her abdomen examination is so benign agree with checking Rain cx, Venous doppler both legs and CXR will f/u on this test results cont trending on WBC cut down on her steroids to Prednisone 5mg daily ( home dose ) (3) Leukocytosis Current Visit: Yes Status: Acute Qualifiers: Leukocytosis type: unspecified Qualified Code(s): D72.829 - Elevated white blood cell count, unspecified (4) Atrial fibrillation with RVR Current Visit: Yes Status: Resolved Assessment and plan: in NSR cont PO Cardizem LA 120mg daily - rate controlled on eliquis for anticoag (5) Hypomagnesemia Current Visit: No Status: Resolved Assessment and plan: replaced Mg f/u lab in AM (6) COPD (chronic obstructive pulmonary disease) Current Visit: Yes Status: Acute Assessment and plan: Stable, no wheezing. Continue nasal cannula oxygen to maintain SPO2 around 90% . Patient uses 3 L oxygen at home. Now her oxygen requirement is at her baseline. Qualifiers: COPD type: emphysema Emphysema type: other Qualified Code(s): J43.8 - Other emphysema (7) Acute kidney injury Current Visit: No Status: Resolved Assessment and plan: Probably pre renal due to dehydration Resolved (8) DVT prophylaxis Current Visit: No Status: Acute Assessment and plan: on Eliquis (9) Physical deconditioning Current Visit: Yes Status: Acute Assessment and plan: PT / OT working with pt pt refused to go to SNF - Subjective Interval history: Patient is a 76-year-old female transferred from [facility] for acute pancreatitis, gallstone. Patient is planned for surgery by our surgical team. However, patient did develop A Fib with rapid ventricular response and medical consult was called. Now pt is in NSR..Had Lap cholecystectomy done 5 days ago. Resting comfortably. Pain is tolerable. Had a BM this morning. No acute events overnight - Constitutional Vitals: Temp Pulse Resp BP Pulse Ox 98.4 F 64 18 144/71 95 06/30/17 11:42 06/30/17 11:42 06/30/17 11:42 06/30/17 11:42 06/30/17 11:42 General appearance: Present: A&O X 3 (looks weak and lethargic), answers questions appropriately - Neck Neck exam general surgery: Present: supple. Absent: lymphadenopathy - Cardiovascular Cardiovascular exam: Present: RRR, +S1, +S2. Absent: diastolic murmur, systolic murmur - GI/Abdominal GI/Abdominal exam: Present: normal bowel sounds, soft, tenderness (mild discomfort), no peritoneal signs. Absent: firm, guarding, rebound, rigid, splenomegaly Additional comments: clean incisions ..no active discharge / drainage noticed - Extremities Exam Extremities exam: Present: pedal edema (2+). Absent: calf tenderness, tenderness Internal Medicine: Result - Labs CBC & Chem 7: 06/30/17 06:34 06/30/17 06:34 Labs: Short CBC 06/30/17 Range/Units 06:34 WBC 24.9 H (4.3-11.1) K/mcL Hgb 10.7 L (11.5-15.4) g/dL Hct 32.5 L (35.3-44.9) % Plt Count 306 (140-400) K/mcL Neutrophils # 21.8 H (1.6-8.9) K/mcL BMP 06/30/17 06:34 Sodium 133 L Potassium 3.6 Chloride 95 L Carbon Dioxide 29 BUN 13 Creatinine 0.71 Glucose 186 H Calcium 8.4 L - ABG Interpretation ABG results: PT/INR, D-dimer PT 13.9 Seconds (9.4-12.1) H 06/23/17 02:52 - Impressions Impressions Chest X-Ray 06/30/17 10:38 IMPRESSION: Persistent linear bibasilar atelectasis. D/ / 06/30/2017 12:56:43 Paul Malin MD / [email or web address] Interpreting Provider: Paul Malin MD - VTE Documentation of Mechanical Device: Graduated compression elastic hosiery Consult Discharge Plan - Plan Referrals: Mazin Rios [Other] - 07/05/17 10:30 am Oliverio Jenknis, [Partnered Physician] - Carlotta Dunn CNP [Advanced Practice Nurse] - (07/12/2017 11:00 am)
[2017-06-30] MEDS ORDERED: Ipratropium/Albuterol Neb 3 ML IH PRN ×2 (18:15→18:21)
[2017-06-30] MEDS ORDERED: GuaiFENesin/Dextromethorphan TABLET PO PRN ×2 (18:15→18:21)
[2017-06-30] MEDS ORDERED: Acetaminophen 325 MG TABLET PO PRN ×2 (18:15→18:21)
[2017-06-30] MEDS ORDERED: NON-FORMULARY MEDICATION 1 EACH EACH (Oxygen [Oxygen] 2 L) NS SCH ×2 (18:15→18:21)
[2017-06-30] MEDS ORDERED: *HR* LORazepam 0.5 MG TABLET PO SCH (21:00)
[2017-06-30] MEDS ORDERED: (Diclofenac Sodium [Voltaren] 1 APPL) TP SCH (21:00)
[2017-06-30] MEDS ORDERED: NON-FORMULARY MEDICATION 1 EACH EACH (Ranitidine Hcl [Zantac] 150 MG) PO SCH (21:00)
[2017-06-30] MEDS: (Diclofenac Sodium [Voltaren] 1 APPL) TP SCH (21:46)
[2017-06-30] MEDS: Famotidine 20 MG TABLET PO SCH (21:47)
[2017-06-30] MEDS: *HR* LORazepam 0.5 MG TABLET PO SCH (21:48)
[2017-07-01 06:12] LABS: Basophils % 0.1 %; Eosinophils % 0.1 %; Hematocrit 29.9 % (35.3-44.9); Hemoglobin 10.1 g/dL (11.5-15.4); Immature Granulocytes % 0.8 % (0-4); Lymphocytes # 0.8 K/mcL (0.6-4.6); Mean Corpuscular HGB Conc 33.8 g/dL (31.6-35.5); Mean Corpuscular Hemoglobin 29.2 pg (28.0-33.3); Mean Corpuscular Volume 86.4 fL (83.0-100.0); Mean Platelet Volume 8.9 fL (9.4-12.4); Monocytes # 1.6 K/mcL (0.0-1.3); Monocytes % 10.5 %; Neutrophils # 12.8 K/mcL (1.6-8.9); Platelet Count 327 K/mcL (140-400); Red Blood Count 3.46 M/mcL (3.82-4.97); Red Cell Distribution Width 14.1 % (11.5-14.5); Segmented Neutrophils % 83.5 %
[2017-07-01 06:33] LABS: Alanine Aminotransferase 18 Units/L (0-55); Albumin 2.1 g/dL (3.5-5.0); Albumin/Globulin Ratio 0.6 (1.1-2.2); Alkaline Phosphatase 101 Units/L (38-126); Aspartate Amino Transferase 12 Units/L (5-34); BUN/Creatinine Ratio 15 (6-26); Bilirubin,Total 0.4 mg/dL (0.2-1.2); Blood Urea Nitrogen 11 mg/dL (7-20); Calcium 8.1 mg/dL (8.6-10.8); Carbon Dioxide 35 mEq/L (19-29); Chloride 93 mEq/L (98-109); Globulin 3.3 g/dL (2.4-3.5); Glucose 170 mg/dL (70-99); Magnesium 1.2 mg/dL (1.6-2.6); Osmolality,Calculated 281 (280-300); Potassium 3.3 mEq/L (3.5-4.5); Sodium 134 mEq/L (136-145); Total Protein 5.4 g/dL (6.0-8.3); eGFR For African Americans > 60 (> 60); eGFR For Non-African Americans > 60 (> 60)
[2017-07-01] MEDS ORDERED: Lactobacillus 1 EACH CAP.SPRINK PO SCH (09:00)
[2017-07-01] MEDS ORDERED: Ascorbic Acid 500 MG TABLET PO SCH (09:00)
[2017-07-01] MEDS ORDERED: NON-FORMULARY MEDICATION 1 EACH EACH (Multivitamin [Multi-Day Vitamins] 1 TAB) PO SCH (09:00)
[2017-07-01] MEDS ORDERED: (Biotin [Biotin] 1 MG) PO SCH ×2 (09:00)
[2017-07-01] MEDS ORDERED: Loratadine 10 MG TABLET PO SCH (09:00)
[2017-07-01] MEDS: Multivit/Ca/Min/Fe/FA 1 TAB TABLET PO SCH (09:04)
[2017-07-01] MEDS: Loratadine 10 MG TABLET PO SCH (09:05)
[2017-07-01] MEDS: Ascorbic Acid 500 MG TABLET PO SCH (09:05)
[2017-07-01] MEDS: Lactobacillus 1 EACH CAP.SPRINK PO SCH (09:05)
[2017-07-01] MEDS: (Diclofenac Sodium [Voltaren] 1 APPL) TP SCH (09:05)
--- NOTE | 2017-07-01 09:50 | Internal Med Progress Note ---
Date of Encounter: 07/01/17 Time of Encounter: 09:48 - Assessment and plan (1) Gallstone pancreatitis Current Visit: Yes Status: Acute Assessment and plan: resolved s/p lap cholecystectomy cont empirical Abx ..Levofloxacin and Flagyl # 6/7 (2) S/P laparoscopic cholecystectomy Current Visit: Yes Status: Acute Assessment and plan: POD # 6 Doing well Her WBC started trending down now.. down to 15.3 her abdomen examination is so benign CXR - No infiltrates cont trending on WBC cont empirical abx cut down on her steroids to Prednisone 5mg daily ( home dose ) (3) Leukocytosis Current Visit: Yes Status: Acute Assessment and plan: could be due to recent stress dose steroids started trending down now cont tapering down steroids to home dose 5mg daily Qualifiers: Leukocytosis type: unspecified Qualified Code(s): D72.829 - Elevated white blood cell count, unspecified (4) Atrial fibrillation with RVR Current Visit: Yes Status: Resolved Assessment and plan: in NSR cont PO Cardizem LA 120mg daily and Metoprolol - rate controlled on eliquis for anticoag (5) Hypomagnesemia Current Visit: No Status: Resolved Assessment and plan: continuously low - due to diuresis cont replacing Mg f/u lab in AM (6) COPD (chronic obstructive pulmonary disease) Current Visit: Yes Status: Acute Assessment and plan: Stable, no wheezing. Continue nasal cannula oxygen to maintain SPO2 around 90% . Patient uses 3 L oxygen at home. Now her oxygen requirement is at her baseline. Qualifiers: COPD type: emphysema Emphysema type: other Qualified Code(s): J43.8 - Other emphysema (7) Acute kidney injury Current Visit: No Status: Resolved Assessment and plan: Probably pre renal due to dehydration Resolved (8) Chronic respiratory failure with hypoxia Current Visit: Yes Status: Acute Assessment and plan: on 3 lit Home O2 dependent not in exacerbation (9) DVT prophylaxis Current Visit: No Status: Acute Assessment and plan: on Eliquis (10) Physical deconditioning Current Visit: Yes Status: Acute Assessment and plan: PT / OT working with pt pt refused to go to SNF possible d/c home in AM with home PT / OT - Subjective Interval history: Patient is a 76-year-old female transferred from [facility] for acute pancreatitis, gallstone. Patient is planned for surgery by our surgical team. However, patient did develop A Fib with rapid ventricular response and medical consult was called. Now pt is in NSR..Had Lap cholecystectomy done on 06/25/17. Resting comfortably. Pain is tolerable. Had a BM this morning. No acute events overnight - Constitutional Vitals: Temp Pulse Resp BP Pulse Ox 98.4 F 94 18 124/74 93 07/01/17 07:50 07/01/17 07:50 07/01/17 07:50 07/01/17 07:50 07/01/17 07:50 General appearance: Present: A&O X 3 (looks weak and lethargic), answers questions appropriately - Head Head exam: Present: atraumatic, normal inspection - Neck Neck exam general surgery: Present: supple. Absent: lymphadenopathy - Respiratory Respiratory exam: Present: decreased breath sounds, wheezes. Absent: rales, respiratory distress - Cardiovascular Cardiovascular exam: Present: RRR, +S1, +S2. Absent: systolic murmur - GI/Abdominal GI/Abdominal exam: Present: normal bowel sounds, soft. Absent: distended, guarding, rebound, rigid, tenderness - Extremities Exam Extremities exam: Present: pedal edema. Absent: calf tenderness, tenderness - Neurological Exam Neurological exam: Present: alert, oriented X3 - Psychiatric Psychiatric exam: Present: normal affect, normal mood Internal Medicine: Result - Labs CBC & Chem 7: 07/01/17 05:12 07/01/17 05:12 Labs: Short CBC 07/01/17 Range/Units 05:12 WBC 15.3 H (4.3-11.1) K/mcL Hgb 10.1 L (11.5-15.4) g/dL Hct 29.9 L (35.3-44.9) % Plt Count 327 (140-400) K/mcL Neutrophils # 12.8 H (1.6-8.9) K/mcL BMP 07/01/17 05:12 Sodium 134 L Potassium 3.3 L Chloride 93 L Carbon Dioxide 35 H BUN 11 Creatinine 0.72 Glucose 170 H Calcium 8.1 L Liver Function 07/01/17 Range/Units 05:12 Total Bilirubin 0.4 (0.2-1.2) mg/dL AST 12 (5-34) Units/L ALT 18 (0-55) Units/L Alkaline Phosphatase 101 (38-126) Units/L Albumin 2.1 L (3.5-5.0) g/dL - ABG Interpretation ABG results: PT/INR, D-dimer PT 13.9 Seconds (9.4-12.1) H 06/23/17 02:52 - Impressions Impressions Chest X-Ray 06/30/17 10:38 IMPRESSION: Persistent linear bibasilar atelectasis. D/ / 06/30/2017 12:56:43 Paul Malin MD / [email or web address] Interpreting Provider: Paul Malin MD - Diagnostic Studies Chest x-ray Status: image reviewed by me (improving vascular congestion. no infiltrates) - VTE Documentation of Mechanical Device: Graduated compression elastic hosiery Consult Discharge Plan - Plan Referrals: Mazin Rios [Other] - 07/05/17 10:30 am Oliverio Jenkins DO [Partnered Physician] - Carlotta Dunn [employer]ATION [employer]PER[employer]OR [Advanced Practice Nurse] - (07/12/2017 11:00 am)
[2017-07-01] MEDS ORDERED: *HR* Dextrose 50 % in Water (Syg) 50 ML SYRINGE IVP PRN (09:55)
[2017-07-01] MEDS ORDERED: D5% in Water 1,000 ML IVC PRN (09:55)
[2017-07-01] MEDS ORDERED: Dextrose Gel 15 GM PO PRN ×2 (09:55)
[2017-07-01] MEDS ORDERED: MetroNIDAZOLE 500 MG/100 ML 500 MG/100 ML BAG IVPB SCH (10:00)
[2017-07-01] MEDS: Magnesium Sulfate 2 GM in D5% in Water 100 ML IVPB SCH ×2 (10:10→12:53)
[2017-07-01] MEDS: Diltiazem CD (24hr) 120 MG CAPSULE PO SCH (11:22)
[2017-07-01] MEDS: Furosemide 40 MG TABLET PO SCH (11:22)
[2017-07-01] MEDS: Aspirin Enteric Coated 81 MG Tablet PO SCH (11:22)
[2017-07-01] MEDS: APIXABAN 5 MG TABLET PO SCH ×2 (11:23→21:18)
[2017-07-01] MEDS: MetroNIDAZOLE 500 MG/100 ML 500 MG/100 ML BAG IVPB SCH ×2 (11:23→16:44)
[2017-07-01] MEDS: Budesonide/Formoterol 160/4.5 MDI IH SCH ×2 (11:28→20:15)
[2017-07-01] MEDS: Insulin LISPRO 300 UNITS/3 ML VIAL SQ SCH ×2 (12:19→16:44)
[2017-07-01] MEDS: Levofloxacin 500 MG/100 ML 500 MG/100 ML BAG IVPB SCH (12:53)
--- NOTE | 2017-07-01 14:32 | General Surgery Progress Note ---
Date of Encounter: 07/01/17 Time of Encounter: 14:00 - Assessment and Plan (1) Gallstone pancreatitis Current Visit: Yes Status: Acute Postoperative day #6 of laparoscopic cholecystectomy with Dr. Jenkins -Regular diet Will replace K -Supportive care and discomfort management -director of clinical services consult for home health -Umbilical incision draining serous fluid. Wound care daily. - No s/s of infection noted; however we did open the area with a q-tip and packed with 1/2 inch iodoform gauze for wicking. Apply dry dressing PRN. OK to change packing to 1/4 inch plain gauze 07/01 per RN. -Increase activity as tolerated: PT/OT, discharge planning pending transition to po abx and safety, for home with help from her daughter at this time; Will plan for d/c in the next 24-48 pending clinical course and doppler results (2) Leukocytosis Current Visit: Yes Status: Acute Leukocytosis improved today. Pt has resumed her home PO steroids (5 mg prednisone) CXR without focal consolidation Cultures not resulted at this time Dopplers have not been completed. Will continue to monitor. Repeat am labs Qualifiers: Leukocytosis type: unspecified Qualified Code(s): D72.829 - Elevated white blood cell count, unspecified (3) Atrial fibrillation with RVR Current Visit: Yes Status: Resolved Management per medicine and cardiology. Has resumed Eliquis. Ok from a surgical perspective to transfer to a telemetry (4) DVT prophylaxis Current Visit: Yes Status: Acute OOB with assistance and mobilize as tolerated. Per medicine pt to begin therapeutic Eliquis. (5) Weakness Current Visit: Yes Status: Acute Pt reports continued symptoms of deconditioning. PT and OT are involved. D/C planning in progress for home with assistance from her daughter. (6) Volume overload Current Visit: Yes Status: Acute Management per medicine/cardiology No s/s of fluid overload at this time. Will replace potassium Qualifiers: Hypervolemia type: unspecified Qualified Code(s): E87.70 - Fluid overload, unspecified (7) COPD (chronic obstructive pulmonary disease) Current Visit: Yes Status: Acute Management per medicine. Home O2 noted. Qualifiers: COPD type: emphysema Emphysema type: other Qualified Code(s): J43.8 - Other emphysema (8) GERD (gastroesophageal reflux disease) Current Visit: Yes Status: Chronic Daily PPI therapy Qualifiers: Esophagitis presence: esophagitis presence not specified Qualified Code(s) : K21.9 - Gastro-esophageal reflux disease without esophagitis (9) HTN (hypertension) Current Visit: No Status: Chronic Qualifiers: Hypertension type: essential hypertension Qualified Code(s): I10 - Essential (primary) hypertension Subjective Patient reports: feels better, still having pain, pain is less, tolerating liquids well, voiding w/o difficulty, flatus, bowel movement, afebrile Narrative: Adriana states continued improvement. She denies n/v/d. She stated she worked with therapy today and that she was concerned about her ability to get in and out of her bed at home, but states he daughter would help her. Objective Vital Signs - Last 8 Hours Temp Pulse Resp BP Pulse Ox 07/01/17 11:57 97.6 F 69 18 110/70 95 07/01/17 11:28 18 93 07/01/17 07:50 98.4 F 94 18 124/74 93 Intake and Output 06/30/17 07/01/17 07/01/17 23:59 07:59 15:59 Intake Total 224 / 224 Output Total 750 / 750 350 / 350 Balance -750 / -750 -126 / -126 Intake: IV Fluids 104 / 104 Magnesium Sulfate 2 GM In 104 / 104 Dextrose 5% 100 ML @ 100 mls/hr IVPB Q4H [facility] Rx#: [id number] Oral 120 / 120 Output: Urine 750 / 750 350 / 350 Other: Meal Lunch Percent of Meal Consumed 0% Stool Size Small Stool Consistency soft Stool Characteristics Normal for Patient Stool Color Brown # Voids 1 1 # Bowel Movements 1 Blood Glucose* 134 240 282 - General physical appearance well nourished, no distress - Eyes normal ocular movement - ENT normal nares, normal mucosa, Other (O2 per NC noted) - Neck Neck exam: trachea midline - Respiratory normal respiratory effort, other (Decreased) - Cardiovascular Cardiovascular exam: Present: RRR - Abdomen Abdomen: Present: bowel sounds present, soft, tender (expected postoperative tenderness) - Integumentary no rash - Neurologic CN 2-12 grossly intact - Musculoskeletal normal posture - Psychiatric oriented to time, oriented to person, oriented to place - Labs 07/01/17 05:12 07/01/17 05:12 Diabetes panel 07/01/17 Range/Units 05:12 Sodium 134 L (136-145) mEq/L Potassium 3.3 L (3.5-4.5) mEq/L Chloride 93 L (98-109) mEq/L Carbon Dioxide 35 H (19-29) mEq/L BUN 11 (7-20) mg/dL Creatinine 0.72 (0.57-1.11) mg/dL Glucose 170 H (70-99) mg/dL Calcium 8.1 L (8.6-10.8) mg/dL AST 12 (5-34) Units/L ALT 18 (0-55) Units/L Alkaline Phosphatase 101 (38-126) Units/L Albumin 2.1 L (3.5-5.0) g/dL Calcium panel 07/01/17 Range/Units 05:12 Calcium 8.1 L (8.6-10.8) mg/dL Albumin 2.1 L (3.5-5.0) g/dL Pituitary panel 07/01/17 Range/Units 05:12 Sodium 134 L (136-145) mEq/L Potassium 3.3 L (3.5-4.5) mEq/L Chloride 93 L (98-109) mEq/L Carbon Dioxide 35 H (19-29) mEq/L BUN 11 (7-20) mg/dL Creatinine 0.72 (0.57-1.11) mg/dL Glucose 170 H (70-99) mg/dL Calcium 8.1 L (8.6-10.8) mg/dL Adrenal panel 07/01/17 Range/Units 05:12 Sodium 134 L (136-145) mEq/L Potassium 3.3 L (3.5-4.5) mEq/L Chloride 93 L (98-109) mEq/L Carbon Dioxide 35 H (19-29) mEq/L BUN 11 (7-20) mg/dL Creatinine 0.72 (0.57-1.11) mg/dL Glucose 170 H (70-99) mg/dL Calcium 8.1 L (8.6-10.8) mg/dL Total Bilirubin 0.4 (0.2-1.2) mg/dL AST 12 (5-34) Units/L ALT 18 (0-55) Units/L Alkaline Phosphatase 101 (38-126) Units/L Albumin 2.1 L (3.5-5.0) g/dL - VTE Documentation of Mechanical Device: Graduated compression elastic hosiery Consult Discharge Plan - Plan Referrals: Mazin Rios [Other] - 07/05/17 10:30 am Oliverio Jenkins DO [Partnered Physician] - Carlotta Dunn CNP [Advanced Practice Nurse] - (07/12/2017 11:00 am)
[2017-07-01] MEDS ORDERED: *HR* LORazepam 0.5 MG TABLET PO PRN (15:15)
[2017-07-01] MEDS ORDERED: Insulin LISPRO 300 UNITS/3 ML VIAL SQ SCH (21:00)
[2017-07-01] MEDS: Famotidine 20 MG TABLET PO SCH (21:17)
[2017-07-01] MEDS: *HR* LORazepam 0.5 MG TABLET PO SCH (21:18)
[2017-07-02] MEDS: MetroNIDAZOLE 500 MG/100 ML 500 MG/100 ML BAG IVPB SCH ×2 (00:02→08:15)
[2017-07-02 06:05] LABS: Basophils % 0.1 %; Eosinophils % 0.2 %; Hematocrit 30.8 % (35.3-44.9); Hemoglobin 10.2 g/dL (11.5-15.4); Immature Granulocytes % 0.6 % (0-4); Lymphocytes # 0.8 K/mcL (0.6-4.6); Lymphocytes % 4.6 %; Mean Corpuscular HGB Conc 33.1 g/dL (31.6-35.5); Mean Corpuscular Hemoglobin 28.9 pg (28.0-33.3); Mean Corpuscular Volume 87.3 fL (83.0-100.0); Mean Platelet Volume 8.3 fL (9.4-12.4); Monocytes # 2.5 K/mcL (0.0-1.3); Monocytes % 14.2 %; Neutrophils # 14.2 K/mcL (1.6-8.9); Platelet Count 372 K/mcL (140-400); Red Blood Count 3.53 M/mcL (3.82-4.97); Red Cell Distribution Width 13.9 % (11.5-14.5); Segmented Neutrophils % 80.3 %
[2017-07-02 06:17] LABS: BUN/Creatinine Ratio 11 (6-26); Blood Urea Nitrogen 8 mg/dL (7-20); Calcium 8.1 mg/dL (8.6-10.8); Carbon Dioxide 31 mEq/L (19-29); Chloride 93 mEq/L (98-109); Glucose 140 mg/dL (70-99); Magnesium 1.3 mg/dL (1.6-2.6); Osmolality,Calculated 277 (280-300); Potassium 3.8 mEq/L (3.5-4.5); Sodium 133 mEq/L (136-145); eGFR For African Americans > 60 (> 60); eGFR For Non-African Americans > 60 (> 60)
[2017-07-02] MEDS: APIXABAN 5 MG TABLET PO SCH (08:14)
[2017-07-02] MEDS: Ascorbic Acid 500 MG TABLET PO SCH (08:14)
[2017-07-02] MEDS: Furosemide 40 MG TABLET PO SCH (08:14)
[2017-07-02] MEDS: Lactobacillus 1 EACH CAP.SPRINK PO SCH (08:14)
[2017-07-02] MEDS: Multivit/Ca/Min/Fe/FA 1 TAB TABLET PO SCH (08:14)
[2017-07-02] MEDS: Aspirin Enteric Coated 81 MG Tablet PO SCH (08:14)
[2017-07-02] MEDS: Loratadine 10 MG TABLET PO SCH (08:15)
[2017-07-02] MEDS: Diltiazem CD (24hr) 120 MG CAPSULE PO SCH (08:15)
[2017-07-02] MEDS: Insulin LISPRO 300 UNITS/3 ML VIAL SQ SCH ×2 (08:15→12:12)
[2017-07-02] MEDS ORDERED: Magnesium Oxide 400 MG TABLET PO SCH ×2 (09:00→21:00)
[2017-07-02] MEDS ORDERED: Magnesium Sulfate 2 GM in D5% in Water 100 ML IVPB ONE (09:10)
--- NOTE | 2017-07-02 09:13 | Internal Med Progress Note ---
Date of Encounter: 07/02/17 Time of Encounter: 08:20 - Assessment and plan (1) Gallstone pancreatitis Current Visit: Yes Status: Acute Assessment and plan: resolved s/p lap cholecystectomy cont empirical Abx ..Levofloxacin and Flagyl # 7/ (2) S/P laparoscopic cholecystectomy Current Visit: Yes Status: Acute Assessment and plan: POD # 7 Doing well Her WBC still fluctuating between 15-17 her abdomen examination is so benign CXR - No infiltrates cont empirical abx Venous doppler was done last night - results P cut down on her steroids to Prednisone 5mg daily ( home dose ) (3) Leukocytosis Current Visit: Yes Status: Acute Assessment and plan: could be due to recent stress dose steroids benign abdomen examination..Normal UA ..CXR findings - consistent with atelectasis steroids to home dose 5mg daily Qualifiers: Leukocytosis type: unspecified Qualified Code(s): D72.829 - Elevated white blood cell count, unspecified (4) Atrial fibrillation with RVR Current Visit: Yes Status: Resolved Assessment and plan: in NSR cont PO Cardizem LA 120mg daily and Metoprolol - rate controlled on eliquis for anticoag (5) Hypomagnesemia Current Visit: No Status: Resolved Assessment and plan: continuously low - due to diuresis cont replacing Mg inc scheduled Mag oxide to 400mg BID (6) COPD (chronic obstructive pulmonary disease) Current Visit: Yes Status: Acute Assessment and plan: Stable, no wheezing. Continue nasal cannula oxygen to maintain SPO2 around 90% . Patient uses 3 L oxygen at home. Now her oxygen requirement is at her baseline. Qualifiers: COPD type: emphysema Emphysema type: other Qualified Code(s): J43.8 - Other emphysema (7) Acute kidney injury Current Visit: No Status: Resolved Assessment and plan: Probably pre renal due to dehydration Resolved (8) Chronic respiratory failure with hypoxia Current Visit: Yes Status: Acute Assessment and plan: on 3 lit Home O2 dependent not in exacerbation (9) DVT prophylaxis Current Visit: Yes Status: Acute Assessment and plan: on Eliquis (10) Physical deconditioning Current Visit: Yes Status: Acute Assessment and plan: PT / OT working with pt pt refused to go to SNF - Subjective Interval history: Patient is a 76-year-old female transferred from [facility] for acute pancreatitis, gallstone. Patient is planned for surgery by our surgical team. However, patient did develop A Fib with rapid ventricular response and medical consult was called. Now pt is in NSR..Had Lap cholecystectomy done on 06/25/17. Resting comfortably. Pain is tolerable. Having BM regularly. No complaints today. Wants to go home. No acute events overnight - Constitutional Vitals: Temp Pulse Resp BP Pulse Ox 98.3 F 89 16 114/73 94 07/02/17 07:53 07/02/17 07:53 07/02/17 07:53 07/02/17 07:53 07/02/17 07:53 General appearance: Present: A&O X 3 (looks weak and lethargic), answers questions appropriately - Respiratory Respiratory exam: Present: decreased breath sounds, wheezes. Absent: rales, respiratory distress, rhonchi, tachypnea - Cardiovascular Cardiovascular exam: Present: RRR, +S1, +S2. Absent: systolic murmur - GI/Abdominal GI/Abdominal exam: Present: normal bowel sounds, soft. Absent: rebound, rigid, tenderness Additional comments: clean incisions. no drainage / discharge noticed - Extremities Exam Extremities exam: Present: pedal edema. Absent: calf tenderness, tenderness Additional comments: mild tenderness noticed over Rt foot medial arch - mostly due to severe arthritis - Back Exam Back exam: Absent: CVA tenderness (L), CVA tenderness (R) - Neurological Exam Neurological exam: Present: alert, oriented X3 - Psychiatric Psychiatric exam: Present: normal affect, normal mood Internal Medicine: Result - Labs CBC & Chem 7: 07/02/17 05:53 07/02/17 05:53 Labs: Short CBC 07/02/17 Range/Units 05:53 WBC 17.7 H (4.3-11.1) K/mcL Hgb 10.2 L (11.5-15.4) g/dL Hct 30.8 L (35.3-44.9) % Plt Count 372 (140-400) K/mcL Neutrophils # 14.2 H (1.6-8.9) K/mcL BMP 07/02/17 05:53 Sodium 133 L Potassium 3.8 Chloride 93 L Carbon Dioxide 31 H BUN 8 Creatinine 0.70 Glucose 140 H Calcium 8.1 L - ABG Interpretation ABG results: PT/INR, D-dimer PT 13.9 Seconds (9.4-12.1) H 06/23/17 02:52 - VTE Documentation of Mechanical Device: Graduated compression elastic hosiery Consult Discharge Plan - Plan Referrals: Mazin Rios [Other] - 07/05/17 10:30 am Oliverio Jenkins DO [Partnered Physician] - Carlotta Dunn CNP [Advanced Practice Nurse] - (07/12/2017 11:00 am)
--- NOTE | 2017-07-02 10:22 | Discharge Summary ---
Date of Encounter: 07/02/17 Time of Encounter: 10:20 - Discharge Diagnosis (1) Gallstone pancreatitis Priority: Primary Status: Resolved (2) Leukocytosis Priority: Secondary Status: Acute Comments: Likely secondary to prednisone use Qualifiers: Leukocytosis type: unspecified Qualified Code(s): D72.829 - Elevated white blood cell count, unspecified (3) Atrial fibrillation with RVR Priority: Secondary Status: Resolved (4) DVT prophylaxis Priority: Secondary Status: Resolved (5) Weakness Priority: Secondary Status: Acute (6) Volume overload Priority: Secondary Status: Resolved Qualifiers: Hypervolemia type: unspecified Qualified Code(s): E87.70 - Fluid overload, unspecified (7) COPD (chronic obstructive pulmonary disease) Priority: Secondary Status: Chronic Qualifiers: COPD type: emphysema Emphysema type: other Qualified Code(s): J43.8 - Other emphysema (8) GERD (gastroesophageal reflux disease) Priority: Secondary Status: Chronic Qualifiers: Esophagitis presence: esophagitis presence not specified Qualified Code(s) : K21.9 - Gastro-esophageal reflux disease without esophagitis (9) HTN (hypertension) Priority: Secondary Status: Chronic Qualifiers: Hypertension type: essential hypertension Qualified Code(s): I10 - Essential (primary) hypertension - Discharge Medications Prescriptions: Apixaban [Eliquis] 5 mg PO BID #60 tab Diltiazem CD (24hr) [Cardizem CD] 120 mg PO DAILY #30 Furosemide [Lasix] 40 mg PO DAILY #30 tab Oxycodone HCl/Acetaminophen [Percocet 5-325 mg Tablet] 1 each PO Q4-6H PRN #30 tablet PRN Reason: Pain Home Medications: Albuterol Sulfate [Proair Hfa] 2 puff IH Q4H PRN 07/05/16 [History] Ascorbic Acid [Vitamin C] 500 mg PO DAILY 07/05/16 [History] Aspirin Enteric Coated [Aspirin EC] 81 mg PO DAILY 07/05/16 [History] Biotin 1 mg PO DAILY 07/05/16 [History] Cetirizine HCl [Zyrtec] 10 mg PO DAILY 07/05/16 [History] Citalopram Hydrobromide [Citalopram HBr] 10 mg PO DAILY 07/05/16 [History] Diclofenac Sodium [Voltaren] 1 appl TP QID 07/05/16 [History] GuaiFENesin/Dextromethorphan [Mucinex Dm] 1 tab PO Q4H PRN 07/05/16 [History] Losartan Potassium [Cozaar] 50 mg PO DAILY 07/05/16 [History] Multivitamin [Multi-Day Vitamins] 1 tab PO DAILY 07/05/16 [History] Nortriptyline [Pamelor] 25 mg PO DAILY 07/05/16 [History] Omeprazole [PriLOSEC] 40 mg PO DAILY 07/05/16 [History] Budesonide/Formoterol 160/4.5 [Symbicort 160/4.5] 2 puff IH BIDR #1 inhaler 08/14 [Rx] LORazepam [Ativan] 0.5 mg PO HS #30 tablet 08/30/16 [Rx] Ipratropium/Albuterol Neb [Duoneb] 3 ml IH QID PRN 02/07/17 [History] Lactobacillus [Culturelle] 2 cap PO DAILY 02/07/17 [History] Metoprolol Tartrate [Lopressor] 75 mg PO BID 02/07/17 [History] Acetaminophen [Tylenol] 650 mg PO Q6HR PRN 06/23/17 [History] Metformin HCl [Metformin HCl ER] 500 mg PO DAILY 06/23/17 [History] Montelukast [Singulair] 10 mg PO DAILY 06/23/17 [History] Oxygen 2 l NS AD 06/23/17 [History] Ranitidine HCl [Zantac] 150 mg PO HS 06/23/17 [History] Apixaban [Eliquis] 5 mg PO BID #60 tab 07/02/17 [Rx] Diltiazem CD (24hr) [Cardizem CD] 120 mg PO DAILY #30 07/02/17 [Rx] Furosemide [Lasix] 40 mg PO DAILY #30 tab 07/02/17 [Rx] Oxycodone HCl/Acetaminophen [Percocet 5-325 mg Tablet] 1 each PO Q4-6H PRN #30 tablet 07/02/17 [Rx] Allergies/Adverse Reactions: Allergies Penicillins Allergy (Severe, Verified 07/05/16 17:36) Swelling of Lip/Tongue/Throat Tetanus Vaccines and Toxoid [Tetanus Vaccines & Toxoid] Allergy (Verified 17:36) Confusion acetaminophen [From Darvocet-N] Adverse Reaction (Verified 07/05/16 17:36) Confusion propoxyphene [From Darvon] Adverse Reaction (Verified 07/05/16 17:36) Confusion General Surgery Exam Initial Vital Signs Temp Pulse Resp BP Pulse Ox 97.5 F L 80 18 95/54 93 06/22/17 23:23 06/22/17 23:23 06/22/17 23:23 06/22/17 23:23 06/22/17 23:23 - General physical appearance well developed, well nourished - Eyes normal ocular movement - ENT normal nares, normal mucosa - Neck trachea midline, no venous distension - Respiratory normal respiratory effort, clear to auscultation - Cardiovascular Cardiovascular exam: Present: RRR, murmurs Additional Comments: 1-2+ pitting edema in the lower extremities. Bilateral upper extremity non- pitting edema - Abdomen Abdomen general surgery: Present: bowel sounds present, soft, tender (Expected postoperative tenderness) - Incision Incision: Present: clean and dry (Constantino umbilical incision is draining serous fluid. Although their incisions are clean dry and intact.), intact, serous - Integumentary Integumentary general surgery: Present: warm and dry - Neurologic Present: CN 2-12 grossly intact, normal coordination, normal sensation - Musculoskeletal Present: normal gait, normal posture - Psychiatric Psychiatric general surgery: Present: A&Ox3, appropriate, oriented to person, oriented to place, oriented to time Date of admission: 06/23/17 12:07 Primary care physician: Richie Galeas Consults: 06/23/17 07:47 Consult to Cardiology [CONS] Routine Comment: Consulting Provider: Cardiology Anna Reason for Consult: A Fib RVR Call Completed: No Discharging clinician: Oliverio Renee) - Patient Status Disposition: Home, Self-Care Condition: Good Overall status at discharge: patient is progressing back to baseline - Discharge Instructions Instructions: Laparoscopic Cholecystectomy (DC) Follow Up With: Mazin Rios [Other] - 07/05/17 10:30 am Oliverio Jenkins DO [Partnered Physician] - Sanford Fragoso DO [Partnered Physician] - Additional Instructions: -No lifting, pulling, pushing, greater than 15 pounds for 2 weeks. -Okay to climb stairs as tolerated -May resume driving when you have been off narcotics for 24 hours and you are safe to react in the car. -You may shower beginning today. Wash the incisions daily with soap and water and pat dry. -No swimming, tough bath, or soaking for 2 weeks. -Return to the office for follow-up as directed with Dr. Jenkins on July 13 and follow-up with cardiology as directed (with Dr. Fragoso and 1 to 2 weeks). Follow-up with your PCP and 1 to 2 weeks. You have been given refills of eloquence, Cardizem, and furosemide. As noted these are new cardiac medications. If you began developing symptoms of shortness of breath, chest pain, lightheadedness, dizziness, or feels like you are going to pass out notify cardiology. -Report any increase in discomfort or any new fevers greater than 101.5 degrees and signs of infection such as redness, swelling, or drainage from the incisions. - Diet and Activity Activity: ambulate only with your walker, increase activity as tolerated, wear oxygen at all times (Continue your previous oxygen therapy regimen.) Diet: advance to your usual diet - Hospital Course Hospital course: Ms. 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 She stated the pain was all over the abdomen, sharpen stabbing, and radiated to her back. At the [facility] she was noted to have gallstone pancreatitis and was transferred to [place] for consultation per patient request. She was taken to the operating room by Dr. Mcelroy on 06/25/2017 for a laparoscopic cholecystectomy with choliangiogram. Her hospital course was complicated by paroxysmal atrial fibrillation with RVR, fluid overload, and leukocytosis without a clear source. Her. Umbilical incision began draining serous fluid and was packed with 1/4 inch plain gauze for 2 days. There are no signs or symptoms of infection noted. She states that she remains to feel weak but requests going home with the assistance of her daughter he will be staying with her. She is ambulating with assistance, working with PT OT, and uses a walker. She is quitting without difficulty. She has tolerating a regular diet. Her abdominal discomfort is controlled on the current regimen. - Time Spent with Patient Total time spent providing and/or coordinating discharge services: Labs on day of discharge: Labs from last 24 hours 07/02/17 07/02/17 07/02/17 07:52 05:53 05:53 WBC 17.7 H RBC 3.53 L Hgb 10.2 L Hct 30.8 L MCV 87.3 MCH 28.9 MCHC 33.1 RDW 13.9 Plt Count 372 MPV 8.3 L Immature Gran % 0.6 Seg Neutrophils % 80.3 Lymphocytes % 4.6 Monocytes % 14.2 Eosinophils % 0.2 Basophils % 0.1 Neutrophils # 14.2 H Lymphocytes # 0.8 Monocytes # 2.5 H Eosinophils # 0.0 Basophils # 0.0 Sodium 133 L Potassium 3.8 Chloride 93 L Carbon Dioxide 31 H BUN 8 Creatinine 0.70 Est GFR ( Amer) > 60 Est GFR (Non-Af Amer) > 60 BUN/Creatinine Ratio 11 Glucose 140 H POC Glucose 157 H Calculated Osmolality 277 L Calcium 8.1 L Magnesium 1.3 L 07/01/17 07/01/17 07/01/17 20:21 16:43 15:21 WBC RBC Hgb Hct MCV MCH MCHC RDW Plt Count MPV Immature Gran % Seg Neutrophils % Lymphocytes % Monocytes % Eosinophils % Basophils % Neutrophils # Lymphocytes # Monocytes # Eosinophils # Basophils # Sodium Potassium Chloride Carbon Dioxide BUN Creatinine Est GFR ( Amer) Est GFR (Non-Af Amer) BUN/Creatinine Ratio Glucose POC Glucose 139 H 113 H 165 H Calculated Osmolality Calcium Magnesium 07/01/17 07/01/17 12:01 08:05 WBC RBC Hgb Hct MCV MCH MCHC RDW Plt Count MPV Immature Gran % Seg Neutrophils % Lymphocytes % Monocytes % Eosinophils % Basophils % Neutrophils # Lymphocytes # Monocytes # Eosinophils # Basophils # Sodium Potassium Chloride Carbon Dioxide BUN Creatinine Est GFR ( Amer) Est GFR (Non-Af Amer) BUN/Creatinine Ratio Glucose POC Glucose 282 H 240 H Calculated Osmolality Calcium Magnesium Preliminary micro results at discharge 06/30/17 11:06 Blood Culture - Preliminary Peripheral Venipuncture No growth. 06/30/17 11:06 Blood Culture - Preliminary Peripheral Venipuncture No growth. - Impressions ITS Impressions Chest X-Ray 06/23/17 02:48 IMPRESSION: Bibasilar opacities which may reflect pneumonia or a combination of pleural effusion and partial lower lobe atelectasis. D/ / 06/23/2017 07:04:40 Jeison Corey MD / patricia Interpreting Provider: Jeison Corey MD Cholangiogram,Operative 06/25/17 00:00 IMPRESSION: Intraprocedural fluoroscopic spot images as above. See separate procedure report for more information. D/ / Luis Carlos Manjarrez MD / Luis Carlos Manjarrez MD Interpreting Provider: Luis Carlos Manjarrez MD Chest X-Ray 06/25/17 08:56 IMPRESSION: Parahilar and lower lobe airspace disease, somewhat greater on the left. Consideration includes pulmonary edema and/or superimposed pneumonia. D/ / Amando Dallas MD / Amando Dallas MD Interpreting Provider: Amando Dallas MD Chest X-Ray 06/30/17 10:38 IMPRESSION: Persistent linear bibasilar atelectasis. D/ / 06/30/2017 12:56:43 Paul Malin MD / patricia Interpreting Provider: Paul Malin MD
[2017-07-02] MEDS: Budesonide/Formoterol 160/4.5 MDI IH SCH (11:02)
--- NOTE | 2017-07-02 11:39 | Electrocardiograph Report ---
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
[2017-07-02] MEDS: Levofloxacin 500 MG/100 ML 500 MG/100 ML BAG IVPB SCH (12:12)
[2017-07-02 12:13] VITALS: BP 109/71
--- NOTE | 2017-07-02 17:43 | Venous Imaging Report ---
LE Venous Duplex Patient Name:Adriana Squires Order Number:[id number] Procedure Date:07/01/2017 Date:8Age:76 yrs Gender:Female Location:[facility] Room #: 2A16 Customs [employer] Immigration Officer:Rosemarie García Referring MD:Carlotta Dunn FIELD PRODUCER web content director:DO Cami Chan MD:Parminder Rodriguez MD , FACS Primary Indications:Bilateral lower extremity edema; leukocytosis Secondary Indications: Risk Factors Yes/No Anticoagulants Yes Impressions: Bilateral lower extremity: normal superficial and deep exam. Recommendations: After imaging the patient returned to their room. Findings Venous Duplex Results: Right: Venous imaging of the lower extremity reveals full patency and normal vessel compressibility of the right distal iliac, right common femoral, right superficial femoral, right popliteal, right posterior tibial, right peroneal, right great saphenous and right lesser saphenous. Doppler signals in the evaluated veins were normal. Left: Venous imaging of the lower extremity reveals full patency and normal vessel compressibility of the left distal iliac, left common femoral, left superficial femoral, left popliteal, left posterior tibial, left peroneal, left great saphenous and left lesser saphenous. Doppler signals in the evaluated veins were normal. Lower Extremity Venous Duplex Side Vein Compress Spontaneous Flow Augment Diameter (cm) Depth (cm) Right Distal Iliac Normal Yes Phasic Yes Right Common Femoral Normal Yes Phasic Yes Right Superficial Femoral Normal Yes Phasic Yes Right Popliteal Normal Yes Phasic Yes Right Posterior Tibial Normal Yes Phasic Yes Right Peroneal Normal Yes Phasic Yes Right Great Saphenous Normal Yes Phasic Yes Right Lesser Saphenous Normal Yes Phasic Yes Left Distal Iliac Normal Yes Phasic Yes Left Common Femoral Normal Yes Phasic Yes Left Superficial Femoral Normal Yes Phasic Yes Left Popliteal Normal Yes Phasic Yes Left Posterior Tibial Normal Yes Phasic Yes Left Peroneal Normal Yes Phasic Yes Left Great Saphenous Normal Yes Phasic Yes Left Lesser Saphenous Normal Yes Phasic Yes Updated by Parminder Rodriguez MD, FACS on 07/02/2017 5:38:57 PM Parminder Rodriguez MD electronically signed on 07/02/2017 5:39:17 PM with status of Final
== END 2017-07-02 15:00 | disposition home or self-care (01) | DRG 418 ==
LOC: 3ANU → 2NNU 06-23 03:11 → 2ANU 06-30 16:51
PROVIDERS: ADMIT Surgery; ATTEND Surgery

== ENCOUNTER 2019-11-22 12:01 | Observation (INO) ==
[2019-11-22 12:44] LABS: Basophils % 0.2 %; Eosinophils # 0.1 K/mcL (0.0-0.6); Eosinophils % 0.7 %; Hematocrit 23.4 % (35.3-44.9); Hemoglobin 7.7 g/dL (11.5-15.4); Immature Granulocytes % 0.5 % (0-4); Lymphocytes # 0.7 K/mcL (0.6-4.6); Lymphocytes % 6.2 %; Mean Corpuscular HGB Conc 32.9 g/dL (31.6-35.5); Mean Corpuscular Hemoglobin 30.1 pg (28.0-33.3); Mean Corpuscular Volume 91.4 fL (83.0-100.0); Mean Platelet Volume 8.6 fL (9.4-12.4); Monocytes # 1.3 K/mcL (0.0-1.3); Monocytes % 11.8 %; Platelet Count 307 K/mcL (140-400); Red Blood Count 2.56 M/mcL (3.82-4.97); Red Cell Distribution Width 15.4 % (11.5-14.5); Segmented Neutrophils % 80.6 %; White Blood Count 11.2 K/mcL (4.3-11.1)
[2019-11-22 12:52] LABS: Activated Partial Thrombo Time 29.5 Seconds (26.0-36.0)
[2019-11-22 13:06] LABS: BUN/Creatinine Ratio 25 (6-26); Blood Urea Nitrogen 30 mg/dL (8-23); Calcium 9.2 mg/dL (8.6-10.3); Carbon Dioxide 30 mEq/L (23-29); Chloride 96 mEq/L (98-107); Glucose 212 mg/dL (70-105); Osmolality,Calculated 290 (280-300); Potassium 3.8 mEq/L (3.5-5.1); Sodium 134 mEq/L (136-145); Troponin I < 0.03 ng/mL (< 0.04); eGFR For African Americans 53 (> 60); eGFR For Non-African Americans 44 (> 60)
[2019-11-22] MEDS ORDERED: Naloxone 0.4 MG/ML INJ IVP PRN (14:57)
[2019-11-22] MEDS ORDERED: Ipratropium/Albuterol Neb 3 ML IH PRN (14:59)
[2019-11-22] MEDS ORDERED: Ringers Solution, Lactated 1,000 ML IVC SCH (15:15)
[2019-11-22] MEDS: Budesonide/Formoterol 80/4.5 1 PUFF INH IH SCH ×2 (16:05→19:48)
[2019-11-22] MEDS: Gabapentin 300 MG CAPSULE PO SCH ×2 (17:23→20:14)
[2019-11-22] MEDS: Diltiazem CD (24hr) 120 MG CAPSULE PO SCH (17:23)
[2019-11-22] MEDS: Insulin LISPRO 300 UNITS/3 ML VIAL SQ SCH (17:27)
[2019-11-22] MEDS ORDERED: Ringers Solution, Lactated 500 ML IVC SCH (17:45)
[2019-11-22 20:41] LABS: Hematocrit 22.5 % (35.3-44.9); Hemoglobin 7.3 g/dL (11.5-15.4)
[2019-11-23 05:04] LABS: Basophils % 0.2 %; Eosinophils # 0.1 K/mcL (0.0-0.6); Hematocrit 22.8 % (35.3-44.9); Hemoglobin 7.3 g/dL (11.5-15.4); Immature Granulocytes % 0.2 % (0-4); Lymphocytes # 1.3 K/mcL (0.6-4.6); Lymphocytes % 15.3 %; Mean Corpuscular Hemoglobin 29.1 pg (28.0-33.3); Mean Corpuscular Volume 90.8 fL (83.0-100.0); Mean Platelet Volume 8.4 fL (9.4-12.4); Monocytes # 1.3 K/mcL (0.0-1.3); Neutrophils # 5.5 K/mcL (1.6-8.9); Platelet Count 316 K/mcL (140-400); Red Blood Count 2.51 M/mcL (3.82-4.97); Red Cell Distribution Width 15.2 % (11.5-14.5); Segmented Neutrophils % 67.3 %; White Blood Count 8.2 K/mcL (4.3-11.1)
[2019-11-23 05:17] LABS: BUN/Creatinine Ratio 20 (6-26); Blood Urea Nitrogen 18 mg/dL (8-23); Calcium 8.7 mg/dL (8.6-10.3); Carbon Dioxide 31 mEq/L (23-29); Chloride 100 mEq/L (98-107); Glucose 105 mg/dL (70-105); Osmolality,Calculated 286 (280-300); Sodium 137 mEq/L (136-145); eGFR For African Americans > 60 (> 60); eGFR For Non-African Americans > 60 (> 60)
[2019-11-23 05:24] LABS: Iron < 10 mcg/dL (50-170); Transferrin 243 mg/dL (203-362)
[2019-11-23 05:38] LABS: Ferritin 25 ng/mL (10-120)
[2019-11-23] MEDS: Budesonide/Formoterol 80/4.5 1 PUFF INH IH SCH ×2 (07:31→20:32)
[2019-11-23] MEDS: Insulin LISPRO 300 UNITS/3 ML VIAL SQ SCH ×3 (07:32→16:55)
[2019-11-23] MEDS: Gabapentin 300 MG CAPSULE PO SCH ×3 (07:33→22:15)
[2019-11-23] MEDS: predniSONE 5 MG TABLET PO SCH (07:34)
[2019-11-23] MEDS: Diltiazem CD (24hr) 120 MG CAPSULE PO SCH (07:34)
[2019-11-23] MEDS: Loratadine 10 MG TABLET PO SCH (07:34)
[2019-11-23 08:02] LABS: Estimated Average Glucose 137 mg/dl
[2019-11-23] MEDS ORDERED: Lidocaine -MPF 2% 2 ML VIAL ONE (09:59)
[2019-11-23] MEDS ORDERED: *HR* Propofol 200 MG/20 ML VIAL IVP ONE (09:59)
[2019-11-23] MEDS: Pantoprazole 40 MG VIAL IVP SCH (16:06)
[2019-11-23] MEDS: *HR* Acetylcysteine 20% 600 MG/3 ML ORAL SYRINGE PO SCH (22:14)
[2019-11-23 22:19] LABS: Bilirubin,Urine Negative (Negative); Blood,Urine Small (Negative); Clarity,Urine Turbid (Clear); Color,Urine Yellow (Yellow); Glucose,Urine (UA) Normal (Normal); Ketones,Urine Negative (Negative); Leukocyte Esterase,Urine Large (Negative); Nitrite,Urine Positive (Negative); Protein,Urine Trace mg/dL (Neg-Trace); Specific Gravity,Urine 1.009 (1.010-1.025); Urobilinogen,Urine Normal (Normal)
[2019-11-23 22:21] LABS: Bacteria,Urine Many per hpf (None-Few); Hyaline Casts,Urine Few per lpf (None-Few); RBC,Urine 0-3 per hpf (0-3); Squamous Epithelial Cell,Urine Many per lpf (None-Few); WBC,Urine TNTC per hpf (0-3)
[2019-11-23] MEDS ORDERED: *HR* LORazepam 2 MG/ML VIAL IVP ONE (23:53)
[2019-11-23] MEDS ORDERED: *HR* LORazepam 0.5 MG TABLET PO ONE (23:55)
[2019-11-24 05:41] LABS: Basophils % 0.2 %; Eosinophils # 0.1 K/mcL (0.0-0.6); Eosinophils % 1.1 %; Hematocrit 23.3 % (35.3-44.9); Hemoglobin 7.2 g/dL (11.5-15.4); Immature Granulocytes % 0.4 % (0-4); Lymphocytes # 1.4 K/mcL (0.6-4.6); Lymphocytes % 12.2 %; Mean Corpuscular HGB Conc 30.9 g/dL (31.6-35.5); Mean Corpuscular Hemoglobin 29.3 pg (28.0-33.3); Mean Corpuscular Volume 94.7 fL (83.0-100.0); Mean Platelet Volume 8.7 fL (9.4-12.4); Monocytes # 1.6 K/mcL (0.0-1.3); Monocytes % 14.1 %; Neutrophils # 8.1 K/mcL (1.6-8.9); Platelet Count 308 K/mcL (140-400); Red Blood Count 2.46 M/mcL (3.82-4.97); Red Cell Distribution Width 15.1 % (11.5-14.5); White Blood Count 11.3 K/mcL (4.3-11.1)
[2019-11-24] MEDS: Pantoprazole 40 MG VIAL IVP SCH (05:46)
[2019-11-24 05:57] LABS: Calcium 8.9 mg/dL (8.6-10.3); Potassium 4.3 mEq/L (3.5-5.1)
[2019-11-24] MEDS: *HR* Acetylcysteine 20% 600 MG/3 ML ORAL SYRINGE PO SCH (07:40)
[2019-11-24] MEDS: Insulin LISPRO 300 UNITS/3 ML VIAL SQ SCH ×2 (07:41→11:52)
[2019-11-24] MEDS: Diltiazem CD (24hr) 120 MG CAPSULE PO SCH (07:41)
[2019-11-24] MEDS: Loratadine 10 MG TABLET PO SCH (07:42)
[2019-11-24] MEDS: predniSONE 5 MG TABLET PO SCH (07:42)
[2019-11-24] MEDS: Gabapentin 300 MG CAPSULE PO SCH ×2 (07:42→13:30)
[2019-11-24] MEDS: Budesonide/Formoterol 80/4.5 1 PUFF INH IH SCH (07:47)
[2019-11-24] MEDS ORDERED: Ascorbic Acid 500 MG TABLET PO SCH (09:00)
[2019-11-24] MEDS ORDERED: Cyanocobalamin (B-12) 1,000 MCG TABLET PO SCH (09:00)
[2019-11-24] MEDS ORDERED: CALCIUM CARB PO SCH (09:00)
[2019-11-24] MEDS ORDERED: VIT K1 PO SCH (09:00)
[2019-11-24] MEDS ORDERED: VITAMIN D3 PO SCH (09:00)
[2019-11-24 11:47] VITALS: BP 112/56
== END 2019-11-24 14:34 | disposition home health service (06) ==
LOC: EMEROOARM 12:01 → 3ANU 12:01 → SUATTDRO 14:50 → ICNU 15:20 → 3ANU 16:07
PROVIDERS: ADMIT Internal Medicine; ATTEND Internal Medicine
PROC: ENDOEBX (2019-11-23 09:00)

== ENCOUNTER 2022-06-12 21:35 | Inpatient (IN) ==
[2022-06-12] MEDS ORDERED: 0.9 % Sodium Chloride 1,000 ML IVC ONE (22:31)
[2022-06-12] MEDS ORDERED: Ondansetron 4 MG/2 ML VIAL IVP ONE (22:32)
[2022-06-12] MEDS ORDERED: Iopamidol - 370 500 ML MLS IVP ONE (22:34)
[2022-06-12 23:13] LABS: Basophils % 0.1 %; Hematocrit 33.7 % (35.3-44.9); Hemoglobin 11.1 g/dL (11.5-15.4); Immature Granulocytes % 0.4 % (0-4); Lymphocytes # 1.1 K/mcL (0.6-4.6); Lymphocytes % 8.1 %; Mean Corpuscular HGB Conc 32.9 g/dL (31.6-35.5); Mean Corpuscular Hemoglobin 30.2 pg (28.0-33.3); Mean Corpuscular Volume 91.6 fL (83.0-100.0); Monocytes # 1.7 K/mcL (0.0-1.3); Monocytes % 12.2 %; Neutrophils # 10.9 K/mcL (1.6-8.9); Platelet Count 204 K/mcL (140-400); Red Blood Count 3.68 M/mcL (3.82-4.97); Red Cell Distribution Width 13.3 % (11.5-14.5); Segmented Neutrophils % 79.2 %; White Blood Count 13.8 K/mcL (4.3-11.1)
[2022-06-12 23:27] LABS: Albumin 3.8 g/dL (3.5-5.7); Bilirubin,Total 0.8 mg/dL (0.3-1.0); Calcium 10.1 mg/dL (8.6-10.3); Globulin 3.7 g/dL (2.4-3.5); Potassium 3.6 mEq/L (3.5-5.1); Total Protein 7.5 g/dL (6.4-8.9)
[2022-06-13 00:05] LABS: Influenza A PCR Negative (Negative); Influenza B PCR Negative (Negative); Resp. Syncytial Virus PCR Negative (Negative); SARS-CoV-2 by PCR (In House) Negative (Negative)
[2022-06-13] MEDS ORDERED: Naloxone 0.4 MG/ML INJ IVP PRN (00:59)
[2022-06-13] MEDS ORDERED: Ondansetron 4 MG/2 ML VIAL IVP PRN (00:59)
[2022-06-13 01:06] LABS: Bacteria,Urine Few per hpf (None-Few); Bilirubin,Urine Negative (Negative); Blood,Urine Negative (Negative); Clarity,Urine Clear (Clear); Color,Urine Light-Yellow (Yellow); Glucose,Urine (UA) Normal (Normal); Hyaline Casts,Urine Few per lpf (None Seen); Ketones,Urine Negative (Negative); Leukocyte Esterase,Urine Moderate (Negative); Mucus,Urine Few per lpf (None-Few); Nitrite,Urine Negative (Negative); Protein,Urine Negative (Neg-Trace); RBC,Urine 0-3 per hpf (0-3); Squamous Epithelial Cell,Urine Few per hpf (None-Few); Urobilinogen,Urine Normal (Normal)
[2022-06-13] MEDS ORDERED: Ipratropium/Albuterol Neb 3 ML IH PRN ×2 (01:47→06:31)
[2022-06-13] MEDS ORDERED: 0.9 % Sodium Chloride 1,000 ML IVC SCH (02:15)
[2022-06-13] MEDS: Nystatin SUSP 5 ML UD.LIQ PO SCH ×5 (02:35→20:07)
[2022-06-13 04:52] LABS: Basophils % 0.2 %; Eosinophils % 0.1 %; Hematocrit 28.9 % (35.3-44.9); Immature Granulocytes % 0.5 % (0-4); Lymphocytes # 1.7 K/mcL (0.6-4.6); Mean Corpuscular HGB Conc 31.8 g/dL (31.6-35.5); Mean Corpuscular Hemoglobin 29.9 pg (28.0-33.3); Mean Corpuscular Volume 93.8 fL (83.0-100.0); Mean Platelet Volume 9.4 fL (9.4-12.4); Monocytes # 1.6 K/mcL (0.0-1.3); Monocytes % 14.3 %; Neutrophils # 7.8 K/mcL (1.6-8.9); Platelet Count 171 K/mcL (140-400); Red Blood Count 3.08 M/mcL (3.82-4.97); Red Cell Distribution Width 13.4 % (11.5-14.5); Segmented Neutrophils % 69.9 %; White Blood Count 11.1 K/mcL (4.3-11.1)
[2022-06-13 04:53] LABS: Hemoglobin 9.2 g/dL (11.5-15.4)
[2022-06-13 05:12] LABS: Calcium 8.8 mg/dL (8.6-10.3); Magnesium 1.4 mg/dL (1.6-2.6); Potassium 3.3 mEq/L (3.5-5.1)
[2022-06-13 05:25] LABS: Thyroid Stimulating Hormone 1.439 mcIU/mL (0.340-5.600)
[2022-06-13] MEDS ORDERED: Magnesium Sulfate 1 GM/102 ML PIGGYBACK IVPB ONE (06:30)
[2022-06-13] MEDS ORDERED: hydrOXYzine pamoate 25 MG CAPSULE PO PRN (06:31)
[2022-06-13] MEDS: Budesonide/Formoterol 160/4.5 1 PUFF INH IH SCH ×2 (08:01→19:37)
[2022-06-13] MEDS: Lactobacillus 1 EACH CAP.SPRINK PO SCH (08:35)
[2022-06-13] MEDS: Apixaban 5 MG TABLET PO SCH ×2 (08:35→20:07)
[2022-06-13] MEDS: Cyanocobalamin (B-12) 1,000 MCG TABLET PO SCH (08:36)
[2022-06-13] MEDS: predniSONE 5 MG TABLET PO SCH (08:36)
[2022-06-13] MEDS: Ascorbic Acid 500 MG TABLET PO SCH (08:36)
[2022-06-13] MEDS: Cholecalciferol (D-3) 1,000 UNIT (25MCG) TABLET PO SCH (08:36)
[2022-06-13] MEDS: cefTRIAXone 1,000 MG in 0.9 % Sodium Chloride Mini Bag 100 ML IVPB SCH (08:36)
[2022-06-13] MEDS ORDERED: *HR* Dextrose 50 % in Water (Syg) 50 ML SYRINGE IVP PRN (16:55)
[2022-06-13] MEDS ORDERED: Dextrose Gel 15 GM/37.5 ML TUBE PO PRN ×2 (16:55)
[2022-06-13] MEDS ORDERED: D5% in Water 1,000 ML IVC PRN (16:55)
[2022-06-13] MEDS ORDERED: Acetaminophen 325 MG TABLET PO PRN (17:03)
[2022-06-13] MEDS: 0.9 % Sodium Chloride 1,000 ML IVC SCH (17:10)
[2022-06-13] MEDS: DilTIAZem SR (12hr) 60 MG CAP.ER.12H PO SCH (20:07)
[2022-06-13] MEDS: Insulin LISPRO 300 UNITS/3 ML VIAL SUBQ SCH (20:16)
[2022-06-14] MEDS: 0.9 % Sodium Chloride 1,000 ML IVC SCH (05:05)
[2022-06-14] MEDS: Multivit/Ca/Min/Fe/FA 1 TAB TABLET PO SCH (07:49)
[2022-06-14] MEDS: Cyanocobalamin (B-12) 1,000 MCG TABLET PO SCH (07:49)
[2022-06-14] MEDS: DilTIAZem SR (12hr) 60 MG CAP.ER.12H PO SCH ×2 (07:49→20:08)
[2022-06-14] MEDS: Cholecalciferol (D-3) 1,000 UNIT (25MCG) TABLET PO SCH (07:49)
[2022-06-14] MEDS: predniSONE 5 MG TABLET PO SCH (07:49)
[2022-06-14] MEDS: Apixaban 5 MG TABLET PO SCH ×2 (07:49→20:06)
[2022-06-14] MEDS: Ascorbic Acid 500 MG TABLET PO SCH (07:50)
[2022-06-14] MEDS: Nystatin SUSP 5 ML UD.LIQ PO SCH ×4 (07:50→20:05)
[2022-06-14] MEDS: cefTRIAXone 1,000 MG in 0.9 % Sodium Chloride Mini Bag 100 ML IVPB SCH (07:50)
[2022-06-14] MEDS: Lactobacillus 1 EACH CAP.SPRINK PO SCH (07:50)
[2022-06-14] MEDS: Budesonide/Formoterol 160/4.5 1 PUFF INH IH SCH ×2 (07:57→19:48)
[2022-06-14 08:15] LABS: Basophils % 0.2 %; Eosinophils % 0.2 %; Hematocrit 29.9 % (35.3-44.9); Hemoglobin 9.6 g/dL (11.5-15.4); Immature Granulocytes % 0.4 % (0-4); Lymphocytes # 1.2 K/mcL (0.6-4.6); Lymphocytes % 7.4 %; Mean Corpuscular HGB Conc 32.1 g/dL (31.6-35.5); Mean Corpuscular Hemoglobin 30.3 pg (28.0-33.3); Mean Corpuscular Volume 94.3 fL (83.0-100.0); Monocytes # 2.4 K/mcL (0.0-1.3); Monocytes % 15.4 %; Platelet Count 160 K/mcL (140-400); Red Blood Count 3.17 M/mcL (3.82-4.97); Red Cell Distribution Width 13.8 % (11.5-14.5); Segmented Neutrophils % 76.4 %; White Blood Count 15.7 K/mcL (4.3-11.1)
[2022-06-14] MEDS: Insulin LISPRO 300 UNITS/3 ML VIAL SUBQ SCH ×4 (08:31→22:32)
[2022-06-14 08:40] LABS: Calcium 8.6 mg/dL (8.6-10.3); Phosphorous 2.7 mg/dL (2.7-4.5); Potassium 4.1 mEq/L (3.5-5.1)
[2022-06-14] MEDS ORDERED: CITALOPRAM HYDROBROMIDE 10 MG PO SCH (09:00)
[2022-06-15 05:06] LABS: Basophils % 0.1 %; Eosinophils % 0.1 %; Hematocrit 30.2 % (35.3-44.9); Hemoglobin 9.9 g/dL (11.5-15.4); Immature Granulocytes % 0.6 % (0-4); Lymphocytes # 0.9 K/mcL (0.6-4.6); Lymphocytes % 5.9 %; Mean Corpuscular HGB Conc 32.8 g/dL (31.6-35.5); Mean Corpuscular Hemoglobin 30.5 pg (28.0-33.3); Mean Corpuscular Volume 92.9 fL (83.0-100.0); Mean Platelet Volume 8.9 fL (9.4-12.4); Monocytes # 2.2 K/mcL (0.0-1.3); Monocytes % 13.6 %; Neutrophils # 12.6 K/mcL (1.6-8.9); Platelet Count 153 K/mcL (140-400); Red Blood Count 3.25 M/mcL (3.82-4.97); Red Cell Distribution Width 13.7 % (11.5-14.5); Segmented Neutrophils % 79.7 %; White Blood Count 15.9 K/mcL (4.3-11.1)
[2022-06-15 05:25] LABS: Calcium 8.8 mg/dL (8.6-10.3); Magnesium 1.6 mg/dL (1.6-2.6); Phosphorous 2.7 mg/dL (2.7-4.5); Potassium 4.1 mEq/L (3.5-5.1)
[2022-06-15] MEDS ORDERED: 0.9 % Sodium Chloride 500 ML IVC SCH (07:45)
[2022-06-15] MEDS: Insulin LISPRO 300 UNITS/3 ML VIAL SUBQ SCH ×4 (08:18→20:43)
[2022-06-15] MEDS: cefTRIAXone 1,000 MG in 0.9 % Sodium Chloride Mini Bag 100 ML IVPB SCH (08:38)
[2022-06-15] MEDS: Cholecalciferol (D-3) 1,000 UNIT (25MCG) TABLET PO SCH (08:45)
[2022-06-15] MEDS: Lactobacillus 1 EACH CAP.SPRINK PO SCH (08:45)
[2022-06-15] MEDS: Cyanocobalamin (B-12) 1,000 MCG TABLET PO SCH (08:46)
[2022-06-15] MEDS: Ascorbic Acid 500 MG TABLET PO SCH (08:46)
[2022-06-15] MEDS: DilTIAZem SR (12hr) 60 MG CAP.ER.12H PO SCH ×2 (08:46→20:42)
[2022-06-15] MEDS: Multivit/Ca/Min/Fe/FA 1 TAB TABLET PO SCH (08:46)
[2022-06-15] MEDS: predniSONE 5 MG TABLET PO SCH (08:47)
[2022-06-15] MEDS: Nystatin SUSP 5 ML UD.LIQ PO SCH ×4 (08:47→20:43)
[2022-06-15] MEDS: Apixaban 5 MG TABLET PO SCH ×2 (08:49→20:42)
[2022-06-15] MEDS: Budesonide/Formoterol 160/4.5 1 PUFF INH IH SCH ×2 (09:39→21:06)
[2022-06-16 07:39] LABS: Basophils % 0.1 %; Eosinophils % 0.1 %; Hemoglobin 9.7 g/dL (11.5-15.4); Immature Granulocytes % 0.5 % (0-4); Lymphocytes % 7.3 %; Mean Corpuscular HGB Conc 32.3 g/dL (31.6-35.5); Mean Corpuscular Hemoglobin 29.5 pg (28.0-33.3); Mean Corpuscular Volume 91.2 fL (83.0-100.0); Mean Platelet Volume 9.3 fL (9.4-12.4); Monocytes # 2.2 K/mcL (0.0-1.3); Monocytes % 16.4 %; Neutrophils # 9.9 K/mcL (1.6-8.9); Platelet Count 161 K/mcL (140-400); Red Blood Count 3.29 M/mcL (3.82-4.97); Red Cell Distribution Width 13.6 % (11.5-14.5); Segmented Neutrophils % 75.6 %; White Blood Count 13.1 K/mcL (4.3-11.1)
[2022-06-16] MEDS: Budesonide/Formoterol 160/4.5 1 PUFF INH IH SCH ×2 (07:44→20:19)
[2022-06-16 07:50] LABS: Magnesium 1.5 mg/dL (1.6-2.6); Phosphorous 2.5 mg/dL (2.7-4.5); Potassium 3.8 mEq/L (3.5-5.1)
[2022-06-16] MEDS: Insulin LISPRO 300 UNITS/3 ML VIAL SUBQ SCH ×4 (09:29→21:48)
[2022-06-16] MEDS: Apixaban 5 MG TABLET PO SCH ×2 (09:43→19:33)
[2022-06-16] MEDS: Lactobacillus 1 EACH CAP.SPRINK PO SCH (09:43)
[2022-06-16] MEDS: DilTIAZem SR (12hr) 60 MG CAP.ER.12H PO SCH ×2 (09:45→19:35)
[2022-06-16] MEDS: Nystatin SUSP 5 ML UD.LIQ PO SCH ×4 (09:45→19:35)
[2022-06-16] MEDS: predniSONE 5 MG TABLET PO SCH (09:45)
[2022-06-16] MEDS: Cholecalciferol (D-3) 1,000 UNIT (25MCG) TABLET PO SCH (09:45)
[2022-06-16] MEDS: Cyanocobalamin (B-12) 1,000 MCG TABLET PO SCH (09:45)
[2022-06-16] MEDS: Ascorbic Acid 500 MG TABLET PO SCH (09:46)
[2022-06-16] MEDS: Multivit/Ca/Min/Fe/FA 1 TAB TABLET PO SCH (09:46)
[2022-06-16] MEDS: cefTRIAXone 1,000 MG in 0.9 % Sodium Chloride Mini Bag 100 ML IVPB SCH (09:46)
[2022-06-16] MEDS: *HR* FentaNYL PATCH 12 MCG PATCH TD SCH (18:11)
[2022-06-16] MEDS: Magnesium Oxide 400 MG TABLET PO SCH (21:49)
[2022-06-17] MEDS: Budesonide/Formoterol 160/4.5 1 PUFF INH IH SCH ×2 (07:41→22:10)
[2022-06-17 07:46] LABS: Basophils % 0.1 %; Eosinophils # 0.1 K/mcL (0.0-0.6); Eosinophils % 0.5 %; Hematocrit 29.1 % (35.3-44.9); Hemoglobin 9.5 g/dL (11.5-15.4); Immature Granulocytes % 0.4 % (0-4); Lymphocytes # 1.1 K/mcL (0.6-4.6); Lymphocytes % 9.5 %; Mean Corpuscular HGB Conc 32.6 g/dL (31.6-35.5); Mean Corpuscular Hemoglobin 29.7 pg (28.0-33.3); Mean Corpuscular Volume 90.9 fL (83.0-100.0); Monocytes # 2.1 K/mcL (0.0-1.3); Monocytes % 18.9 %; Platelet Count 173 K/mcL (140-400); Red Cell Distribution Width 13.7 % (11.5-14.5); Segmented Neutrophils % 70.6 %; White Blood Count 11.3 K/mcL (4.3-11.1)
[2022-06-17] MEDS: Insulin LISPRO 300 UNITS/3 ML VIAL SUBQ SCH ×4 (07:47→19:39)
[2022-06-17 08:03] LABS: Phosphorous 2.8 mg/dL (2.7-4.5); Potassium 3.5 mEq/L (3.5-5.1)
[2022-06-17 08:18] LABS: Platelet Estimate Normal (Normal)
[2022-06-17] MEDS: DilTIAZem SR (12hr) 60 MG CAP.ER.12H PO SCH ×2 (08:59→20:00)
[2022-06-17] MEDS: Magnesium Oxide 400 MG TABLET PO SCH ×2 (08:59→20:01)
[2022-06-17] MEDS: Nystatin SUSP 5 ML UD.LIQ PO SCH ×4 (08:59→20:01)
[2022-06-17] MEDS: Cholecalciferol (D-3) 1,000 UNIT (25MCG) TABLET PO SCH (09:00)
[2022-06-17] MEDS: predniSONE 5 MG TABLET PO SCH (09:00)
[2022-06-17] MEDS: Ascorbic Acid 500 MG TABLET PO SCH (09:00)
[2022-06-17] MEDS: Apixaban 5 MG TABLET PO SCH ×2 (09:00→20:01)
[2022-06-17] MEDS: Cyanocobalamin (B-12) 1,000 MCG TABLET PO SCH (09:00)
[2022-06-17] MEDS: Multivit/Ca/Min/Fe/FA 1 TAB TABLET PO SCH (09:00)
[2022-06-17] MEDS: Lactobacillus 1 EACH CAP.SPRINK PO SCH (09:00)
[2022-06-17] MEDS ORDERED: Magnesium Sulfate 1 GM/102 ML PIGGYBACK IVPB ONE (14:10)
[2022-06-18] MEDS: Insulin LISPRO 300 UNITS/3 ML VIAL SUBQ SCH ×4 (07:34→20:15)
[2022-06-18] MEDS: Budesonide/Formoterol 160/4.5 1 PUFF INH IH SCH ×2 (07:35→22:35)
[2022-06-18] MEDS: DilTIAZem SR (12hr) 60 MG CAP.ER.12H PO SCH ×2 (09:27→20:03)
[2022-06-18] MEDS: Nystatin SUSP 5 ML UD.LIQ PO SCH ×4 (09:27→20:05)
[2022-06-18] MEDS: Multivit/Ca/Min/Fe/FA 1 TAB TABLET PO SCH (09:27)
[2022-06-18] MEDS: Cyanocobalamin (B-12) 1,000 MCG TABLET PO SCH (09:28)
[2022-06-18] MEDS: Ascorbic Acid 500 MG TABLET PO SCH (09:28)
[2022-06-18] MEDS: Cholecalciferol (D-3) 1,000 UNIT (25MCG) TABLET PO SCH (09:28)
[2022-06-18] MEDS: Lactobacillus 1 EACH CAP.SPRINK PO SCH (09:28)
[2022-06-18] MEDS: predniSONE 5 MG TABLET PO SCH (09:28)
[2022-06-18] MEDS: Magnesium Oxide 400 MG TABLET PO SCH ×2 (09:28→20:03)
[2022-06-18] MEDS: Apixaban 5 MG TABLET PO SCH ×2 (09:29→20:04)
[2022-06-19] MEDS: Budesonide/Formoterol 160/4.5 1 PUFF INH IH SCH ×2 (07:28→20:01)
[2022-06-19] MEDS: Apixaban 5 MG TABLET PO SCH ×2 (07:48→21:10)
[2022-06-19] MEDS: Magnesium Oxide 400 MG TABLET PO SCH ×2 (07:48→21:11)
[2022-06-19] MEDS: Cyanocobalamin (B-12) 1,000 MCG TABLET PO SCH (07:48)
[2022-06-19] MEDS: Lactobacillus 1 EACH CAP.SPRINK PO SCH (07:48)
[2022-06-19] MEDS: Ascorbic Acid 500 MG TABLET PO SCH (07:48)
[2022-06-19] MEDS: Cholecalciferol (D-3) 1,000 UNIT (25MCG) TABLET PO SCH (07:48)
[2022-06-19] MEDS: Nystatin SUSP 5 ML UD.LIQ PO SCH ×4 (07:49→21:12)
[2022-06-19] MEDS: DilTIAZem SR (12hr) 60 MG CAP.ER.12H PO SCH ×2 (07:49→21:10)
[2022-06-19] MEDS: predniSONE 5 MG TABLET PO SCH (07:49)
[2022-06-19] MEDS: Multivit/Ca/Min/Fe/FA 1 TAB TABLET PO SCH (07:49)
[2022-06-19] MEDS: Insulin LISPRO 300 UNITS/3 ML VIAL SUBQ SCH ×4 (08:09→21:02)
[2022-06-19] MEDS: *HR* FentaNYL PATCH 12 MCG PATCH TD SCH (16:33)
[2022-06-19] MEDS: Melatonin 3 MG TABLET PO PRN (23:00)
[2022-06-20] MEDS: Insulin LISPRO 300 UNITS/3 ML VIAL SUBQ SCH ×4 (08:58→20:25)
[2022-06-20] MEDS: Nystatin SUSP 5 ML UD.LIQ PO SCH ×4 (09:04→20:22)
[2022-06-20] MEDS: predniSONE 5 MG TABLET PO SCH (09:04)
[2022-06-20] MEDS: Cyanocobalamin (B-12) 1,000 MCG TABLET PO SCH (09:04)
[2022-06-20] MEDS: Multivit/Ca/Min/Fe/FA 1 TAB TABLET PO SCH (09:04)
[2022-06-20] MEDS: Cholecalciferol (D-3) 1,000 UNIT (25MCG) TABLET PO SCH (09:04)
[2022-06-20] MEDS: Magnesium Oxide 400 MG TABLET PO SCH ×2 (09:04→20:22)
[2022-06-20] MEDS: Ascorbic Acid 500 MG TABLET PO SCH (09:05)
[2022-06-20] MEDS: DilTIAZem SR (12hr) 60 MG CAP.ER.12H PO SCH ×2 (09:05→20:22)
[2022-06-20] MEDS: Apixaban 5 MG TABLET PO SCH ×2 (09:05→20:22)
[2022-06-20] MEDS: Lactobacillus 1 EACH CAP.SPRINK PO SCH (09:05)
[2022-06-20] MEDS: Budesonide/Formoterol 160/4.5 1 PUFF INH IH SCH ×2 (10:21→20:36)
[2022-06-20] MEDS: Melatonin 3 MG TABLET PO PRN (23:52)
[2022-06-21] MEDS ORDERED: *HR* Labetalol 20 MG/4 ML SYRINGE IVP ONE (04:16)
[2022-06-21] MEDS: Nystatin SUSP 5 ML UD.LIQ PO SCH ×4 (09:18→21:08)
[2022-06-21] MEDS: Lactobacillus 1 EACH CAP.SPRINK PO SCH (09:18)
[2022-06-21] MEDS: DilTIAZem SR (12hr) 60 MG CAP.ER.12H PO SCH ×2 (09:18→21:08)
[2022-06-21] MEDS: Cholecalciferol (D-3) 1,000 UNIT (25MCG) TABLET PO SCH (09:19)
[2022-06-21] MEDS: Apixaban 5 MG TABLET PO SCH ×2 (09:19→21:08)
[2022-06-21] MEDS: Magnesium Oxide 400 MG TABLET PO SCH ×2 (09:19→21:08)
[2022-06-21] MEDS: Ascorbic Acid 500 MG TABLET PO SCH (09:19)
[2022-06-21] MEDS: Cyanocobalamin (B-12) 1,000 MCG TABLET PO SCH (09:19)
[2022-06-21] MEDS: Multivit/Ca/Min/Fe/FA 1 TAB TABLET PO SCH (09:19)
[2022-06-21] MEDS: predniSONE 5 MG TABLET PO SCH (09:19)
[2022-06-21] MEDS: Insulin LISPRO 300 UNITS/3 ML VIAL SUBQ SCH ×4 (09:20→21:08)
[2022-06-21] MEDS: Budesonide/Formoterol 160/4.5 1 PUFF INH IH SCH ×2 (10:06→21:59)
[2022-06-21] MEDS: Melatonin 3 MG TABLET PO PRN (23:52)
[2022-06-22 06:57] LABS: Basophils % 0.1 %; Eosinophils # 0.2 K/mcL (0.0-0.6); Eosinophils % 2.6 %; Hematocrit 28.3 % (35.3-44.9); Hemoglobin 9.4 g/dL (11.5-15.4); Immature Granulocytes % 0.5 % (0-4); Lymphocytes # 1.4 K/mcL (0.6-4.6); Lymphocytes % 16.8 %; Mean Corpuscular HGB Conc 33.2 g/dL (31.6-35.5); Mean Corpuscular Hemoglobin 30.3 pg (28.0-33.3); Mean Corpuscular Volume 91.3 fL (83.0-100.0); Mean Platelet Volume 8.5 fL (9.4-12.4); Monocytes # 1.1 K/mcL (0.0-1.3); Monocytes % 13.6 %; Neutrophils # 5.3 K/mcL (1.6-8.9); Platelet Count 290 K/mcL (140-400); Red Cell Distribution Width 13.5 % (11.5-14.5); Segmented Neutrophils % 66.4 %
[2022-06-22 07:15] LABS: Magnesium 1.8 mg/dL (1.6-2.6); Phosphorous 4.3 mg/dL (2.7-4.5); Potassium 3.8 mEq/L (3.5-5.1)
[2022-06-22] MEDS: Apixaban 5 MG TABLET PO SCH ×2 (09:47→21:07)
[2022-06-22] MEDS: Cholecalciferol (D-3) 1,000 UNIT (25MCG) TABLET PO SCH (09:49)
[2022-06-22] MEDS: Multivit/Ca/Min/Fe/FA 1 TAB TABLET PO SCH (09:49)
[2022-06-22] MEDS: Lactobacillus 1 EACH CAP.SPRINK PO SCH (09:49)
[2022-06-22] MEDS: Magnesium Oxide 400 MG TABLET PO SCH ×2 (09:49→21:09)
[2022-06-22] MEDS: Ascorbic Acid 500 MG TABLET PO SCH (09:49)
[2022-06-22] MEDS: DilTIAZem SR (12hr) 60 MG CAP.ER.12H PO SCH ×2 (09:49→21:07)
[2022-06-22] MEDS: predniSONE 5 MG TABLET PO SCH (09:49)
[2022-06-22] MEDS: Insulin LISPRO 300 UNITS/3 ML VIAL SUBQ SCH ×4 (09:49→21:13)
[2022-06-22] MEDS: Cyanocobalamin (B-12) 1,000 MCG TABLET PO SCH (09:49)
[2022-06-22] MEDS: Nystatin SUSP 5 ML UD.LIQ PO SCH ×4 (09:49→21:12)
[2022-06-22] MEDS: Budesonide/Formoterol 160/4.5 1 PUFF INH IH SCH ×2 (11:20→21:21)
[2022-06-22] MEDS: Menthol 1 EACH LOZENGE PO PRN ×2 (17:40→23:23)
[2022-06-22] MEDS: *HR* FentaNYL PATCH 12 MCG PATCH TD SCH (17:40)
[2022-06-23] MEDS ORDERED: *HR* Labetalol 20 MG/4 ML SYRINGE IVP ONE (04:45)
[2022-06-23] MEDS: Insulin LISPRO 300 UNITS/3 ML VIAL SUBQ SCH ×2 (07:32→12:08)
[2022-06-23] MEDS: DilTIAZem SR (12hr) 60 MG CAP.ER.12H PO SCH (09:25)
[2022-06-23] MEDS: Nystatin SUSP 5 ML UD.LIQ PO SCH ×2 (09:25→09:46)
[2022-06-23] MEDS: Lactobacillus 1 EACH CAP.SPRINK PO SCH (09:25)
[2022-06-23] MEDS: Cholecalciferol (D-3) 1,000 UNIT (25MCG) TABLET PO SCH (09:25)
[2022-06-23] MEDS: predniSONE 5 MG TABLET PO SCH (09:26)
[2022-06-23] MEDS: Ascorbic Acid 500 MG TABLET PO SCH (09:26)
[2022-06-23] MEDS: Magnesium Oxide 400 MG TABLET PO SCH (09:26)
[2022-06-23] MEDS: Apixaban 5 MG TABLET PO SCH (09:26)
[2022-06-23] MEDS: Multivit/Ca/Min/Fe/FA 1 TAB TABLET PO SCH (09:26)
[2022-06-23] MEDS: Cyanocobalamin (B-12) 1,000 MCG TABLET PO SCH (09:26)
[2022-06-23] MEDS: Budesonide/Formoterol 160/4.5 1 PUFF INH IH SCH (10:10)
[2022-06-23 10:50] LABS: Adenovirus Not Detected (Not Detect); Bordetella Pertussis Not Detected (Not Detect); Chlamydophila pneumoniae Not Detected (Not Detect); Coronavirus 229E Not Detected (Not Detect); Coronavirus HKU1 Not Detected (Not Detect); Coronavirus NL63 Not Detected (Not Detect); Coronavirus OC43 Not Detected (Not Detect); Human Metapneumovirus Not Detected (Not Detect); Human Rhinovirus/Enterovirus Not Detected (Not Detect); Influenza A Subtype 2009 H1 Not Detected (Not Detect); Influenza B Not Detected (Not Detect); Mycoplasma pneumoniae Not Detected (Not Detect); Parainfluenza Virus 1 Not Detected (Not Detect); Parainfluenza Virus 2 Not Detected (Not Detect); Parainfluenza Virus 3 Not Detected (Not Detect); Parainfluenza Virus 4 Not Detected (Not Detect); Respiratory Syncytial Virus Not Detected (Not Detect); SARS-CoV-2 Not Detected (Not Detect)
[2022-06-23 11:00] VITALS: TEMP 97.9
[2022-06-23 15:56] VITALS: BP 146/72; PULSE 58; O2SAT 93
== END 2022-06-23 16:28 | DRG 683 ==
LOC: 3ANU 21:35 → EMEROOARM 21:35 → SUATTDRO 06-13 00:54 → 3ANU 06-13 01:35
PROVIDERS: ADMIT Internal Medicine; ATTEND Internal Medicine